=== PATIENT | male | born 1945 | race Caucasian/White ===

== ENCOUNTER → 2019-12-19 14:14 | Outpatient (BNVA) | payer MEDICARE, BC, SELFPAY | PROVIDERS: Family Provider Family Medicine; PCP Family Medicine; Visit Provider Family Medicine | DX: E03.9 Hypothyroidism, unspecified (principal); E78.5 Hyperlipidemia, unspecified; I10 Essential (primary) hypertension | CPT/HCPCS: 80053; 84443; 85025 ==

== ENCOUNTER 2020-01-10 14:25 | Outpatient (CLI) | payer MEDICARE, BC, SELFPAY ==
--- NOTE | 2020-01-10 14:37 | XR_ITS ---
WS: [id number] Chest: 2 view. HISTORY: Persistent cough. Shortness of breath. Inspiration and expiration radiographs are performed. No pneumothorax is identified. No pneumonia. Very minimal blunting of the costophrenic angles and ple ural thickening, similar to the prior study of 12/20/2014. No mediastinal widening. XR/XR chest 2V insp/exp [id number] IMPRESSION: 1. No pneumothorax. 2. Very minimal pleural thickening at the lung bases, similar to 12/20/2014.
== END 2020-01-10 14:26 | disposition home or self-care (01) ==
LOC: RAD 14:30
PROVIDERS: Family Provider Family Medicine; PCP Family Medicine; Visit Provider Internal Medicine Cardiovascular Disease
DX: R06.02 Shortness of breath (principal); R05 Cough
CPT/HCPCS: 71046

== ENCOUNTER → 2021-04-25 12:25 | Outpatient (BNVA) | payer MEDICARE, BC, SELFPAY | PROVIDERS: Family Provider Family Medicine; PCP Family Medicine; Visit Provider Family Medicine | DX: I10 Essential (primary) hypertension (principal); E03.9 Hypothyroidism, unspecified; E78.5 Hyperlipidemia, unspecified; R06.02 Shortness of breath; I25.10 Atherosclerotic heart disease of native coronary artery without angina pectoris; I51.7 Cardiomegaly | CPT/HCPCS: 71046; 80053; 80061; 85025 ==

== ENCOUNTER → 2021-07-01 11:48 | Outpatient (BNVA) | payer MEDICARE, BC, SELFPAY | PROVIDERS: Family Provider Family Medicine; PCP Family Medicine; Visit Provider Family Medicine | DX: E03.9 Hypothyroidism, unspecified (principal); I10 Essential (primary) hypertension; I25.2 Old myocardial infarction | CPT/HCPCS: 80053; 83880; 84443; 85025 ==

== ENCOUNTER → 2021-07-10 12:17 | Outpatient (BNVA) | payer MEDICARE, BC, SELFPAY | PROVIDERS: Family Provider Family Medicine; PCP Family Medicine; Visit Provider Family Medicine | DX: I50.31 Acute diastolic (congestive) heart failure (principal) | CPT/HCPCS: 80053 ==

== ENCOUNTER 2021-08-13 06:00 | Outpatient (CLI) | payer MEDICARE, BC, SELFPAY | END 2021-08-13 06:01 | disposition home or self-care (01) | LOC: LAB 01-01 06:39 | PROVIDERS: PCP Family Medicine; Visit Provider Family Medicine | DX: E03.9 Hypothyroidism, unspecified (principal); I25.2 Old myocardial infarction; I50.31 Acute diastolic (congestive) heart failure | CPT/HCPCS: 80048; 83880; 84443 ==

== ENCOUNTER → 2021-09-09 14:43 | Outpatient (BNVA) | payer MEDICARE, BC, SELFPAY | PROVIDERS: Family Provider Family Medicine; PCP Family Medicine; Visit Provider Family Medicine | DX: I50.31 Acute diastolic (congestive) heart failure (principal); R60.9 Edema, unspecified; N40.1 Benign prostatic hyperplasia with lower urinary tract symptoms; N41.1 Chronic prostatitis; N41.0 Acute prostatitis; N39.43 Post-void dribbling | CPT/HCPCS: 80048; 84443 ==

== ENCOUNTER → 2021-11-06 11:17 | Outpatient (BNVA) | payer MEDICARE, BC, SELFPAY | PROVIDERS: Family Provider Family Medicine; PCP Family Medicine; Visit Provider Family Medicine | DX: R60.9 Edema, unspecified (principal); E03.9 Hypothyroidism, unspecified; I50.31 Acute diastolic (congestive) heart failure | CPT/HCPCS: 80048; 84443; G0103 ==

== ENCOUNTER 2021-11-29 08:36 | Emergency (ER) | payer MEDICARE, BC, SELFPAY ==
--- NOTE | 2021-11-29 08:37 | CT_ITS ---
WS: [id number] CT HEAD NONCONTRAST HISTORY: POSSIBLE CVA TECHNIQUE: Contiguous axial imaging performed through the brain in 2.5 mm imaging. Bone and soft tiss ue windows. Sagittal and coronal reformats reviewed. All CT scans at [facility] use at least one of these dose optimization techniques: automated exposure control; mA and/or kV adjustment per pa tient size (includes targeted exams where dose is matched to clinical indication); or iterative recon struction. DLP: 1016.09 mGy-cm. COMPARISON: 09/15/2015 No acute intracranial hemorrhage, midline shift or mass effect. Mild atrophy with extensive small vessel ischemic changes and decreased attenuation in the white vijay er. Small lacunar infarct in the inferior LEFT basal ganglia. No acute loss of the an-white. Ventricles: Mild diffuse ventriculomegaly. Mild progression since 2016. No intraventricular blood. No inferior displacement of cerebellar tonsils. Paranasal sinuses: As visualized are clear. Mastoid air cells: Well pneumatized. Calvarium and scalp: Skull is intact with no soft tissue edema or swelling. CT/CT head wo con* [id number] IMPRESSION: 1. No acute intracranial hemorrhage or edema. 2. Mild ventriculomegaly with moderate diffuse small vessel ischemic disease w ithin the white matter. No acute infarct identified.
[2021-11-29 08:39] VITALS: BP 178/88; PULSE 110; RESP 16; TEMP 36.6; O2SAT 94; BMI 27.8
[2021-11-29 08:46] VITALS: BP 182/91; PULSE 85; RESP 16; O2SAT 97
[2021-11-29 09:00] VITALS: BP 172/84; PULSE 81; RESP 16; O2SAT 98
--- NOTE | 2021-11-29 09:16 | ECG_ITS ---
[facility] Test Date: 2021-11-29 Pat Name: Davy Reed Department: Room: Gender: Male Keg Raiser: : 1945 Requested By: Cassius Amaya Order Number: [id number] Piero MD: Lyle Valdes M.D. Measurements Intervals [place] Rate: 80 P: 30 SD: 168 QRS: 103 QRSD: 133 T: 28 QT: 416 QTc: 481 Interpretive Statements SINUS RHYTHM INDETERMINATE AXIS INTRAVENTRICULAR CONDUCTION DELAY [130+ ms QRS DURATION] POSSIBLE RIGHT VENTRICULAR HYPERTROPHY [SOME/ALL OF: PROMINENT R IN V1, LATE TRANSITION, RAD, JA, SSS] Diffuse nonspecific ST-T changes Compared to ECG 09/15/2015 12:08:49 Indeterminate axis now present Intraventricular conduction delay now present Left ventricular hypertrophy no longer present ST (T wave) deviation no longer present Myocardial infarct finding no longer present Electronically Signed On 11-29-2021 22:01:48 CDT by Lyle Valdes M.D. [id number]
--- NOTE | 2021-11-29 09:17 | ED_ITS ---
HPI - Weakness General: Chief complaint: Weakness Stated complaint: POSSIBLE CVA Time Seen by Provider: 11/29/21 09:04 Source: patient and family Mode of arrival: ambulatory Limitations: no limitations History of Present Illness: This patient was brought to the emergency department by his son because of concerned about right hand difficulties. He states that he noted him initially today approximately 3 AM when he got up and went to the bathroom. He felt like his right hand was clumsy and had less function than normal. He states that he had no other symptoms at that time. He went back to bed and then woke up approximately 7 AM and states the symptoms are still present he is made his way to the emergency department now. Approximately 5 and half?6 hours after onset of symptoms. He states his right hand seems to be improved but still not back to normal. He denies any other constitutional complaints at this time. His family report that he may have had a little bit of slurring his speech earlier today but does not at this time. He also has a history of CVA without deficits in the past. He has had a right carotid endarterectomy. He currently takes aspirin. No history of sleeping on his arm or injury to his arm that he is aware of. No neck pain. MD Complaint: focal weakness and numbness Onset (ago): hour(s) (6) Duration: improved Location: RUE Migration: none Associated symptoms: Reports no associated symptoms and easy bruising; Denies chest pain, chills, dysuria, fever(s), headache(s), nausea or vomiting Review of Systems Const: Denies: fever(s), chills or body aches Eyes: Denies: change in vision or blurry vision ENMT: Denies: throat pain or odynophagia Card: Reports: edema and swelling of feet/ankles; Denies: chest pain, palpitations or irregular heart rhythm Resp: Denies: dyspnea, productive cough or non-productive cough GI: Denies: abdominal pain, nausea, vomiting or hematemesis : Denies: flank pain, difficulty urinating or dysuria Musc: Denies: neck pain, back pain, extremity pain or extremity swelling Skin/Breast: Denies: rash, pruritus or erythema Neuro: Reports: numbness in extremities and weakness in extremities; Denies: headache(s), frequent falls or seizure-like activity Psych: Denies: anxiety or depression Endo: Denies: polyuria or polydipsia [place]/Lymph: Reports: easy bruising PFSH ED PFSH: Medical History Anxiety ASHD (arteriosclerotic heart disease) Carotid stenosis, bilateral Chronic shortness of breath Ed syndrome HTN (hypertension) Hyperlipidemia Hypothyroidism Ischemic cardiomyopathy Non-Hodgkin lymphoma Old inferior wall myocardial infarction Prostatitis, chronic Pulmonary embolism Seborrheic keratoses Syncope TIA (transient ischemic attack) Surgical History S/P carotid endarterectomy S/P PTCA (percutaneous transluminal coronary angioplasty) Family History Mother Cancer COLON Father CAD (coronary artery disease) Social History Smoking and tobacco status: never smoked Marital status: Single service: Yes branch: [employer] Physical Exam Narrative: EXAM NARRATIVE: Patient is alert and cooperative. Speech is goal-directed and fluent. Const: COMMON NORMALS: no acute distress, average body habitus and patient oriented x3 GENERAL APPEARANCE: cooperative and comfortable ORIENTATION/CONSCIOUSNESS: Yes awake, Yes oriented to person, Yes oriented to place and Yes oriented to time HENMT: COMMON NORMALS: normocephalic, atraumatic, Normal nasal mucous membranes and turbinates present and moist oral mucous membranes HEAD & SCALP: normocephalic and atraumatic; no scalp tenderness FACE & SINUS: Flattened naso-labial fold present (Very subtle) Right NOSE: Normal nasal mucous membranes and turbinates present Eye: COMMON NORMALS: Equal, round and reactive pupils present, EOMs intact bilaterally, conjunctivae normal and normal visual rodriguez by confrontation CONJUNCTIVA: Yes conjunctivae normal PUPIL: Yes Equal, round and reactive pu pils present Neck/C-Spine: COMMON NORMALS: full ROM, no lymphadenopathy, supple, no JVD and No carotid bruits (Healed surgical scar right neck) Chest: COMMONS NORMALS: normal inspection of the chest Resp: COMMON NORMALS: normal respiratory effort, No retractions, No use of accessory muscles and clear to auscultation bilaterally AUSCULTATION: clear to auscultation bilaterally Cardio: COMMON NORMALS: no JVD, regular rate, regular rhythm, No murmurs present (Cardio) and Peripheral pulses 2+ throughout RATE: regular rate RHYTHM: regular rhythm PERIPHERAL PULSES: Peripheral pulses 2+ throughout GI: COMMON NORMALS: Normal to inspection, nondistended, normoactive bowel sounds present, Soft to palpation and non-tender PALPATION: Yes Soft to palpation : COMMON NORMALS: Yes no CVA tenderness BLADDER/KIDNEY EXAM: Yes no CVA tenderness Back/Pelvis: COMMON NORMALS: no CVA tenderness, thoracic and lumbar spine normal to inspection, no thoracic nor lumbar tenderness, thoraco-lumbar ROM normal and straight leg raise negative bilaterally Extremity: COMMON NORMALS: normal to inspection, capillary refill normal and no joint enlargement NARRATIVE EXTREMITY EXAM: Bilateral pretibial edema. Neuro: COMMON NORMALS: patient oriented x3, moves all extremities and no sensory deficits noted SENSORIUM/ORIENTATION: Yes oriented to person, Yes oriented to place and Yes oriented to time MOTOR EXAM: Pronator motor function not present and no tremor noted OTHER: He has some weakness noted in the intrinsic muscles of the right hand with some difficulty with fine motor movement. No sensory loss is noted. Total NIH at this time is 1. Skin: COMMON NORMALS: turgor normal and no petechiae GENERAL SKIN EXAM: turgor normal OTHER: Multiple ecchymosis to forearms in various stages of healing. Course Reevaluation(s): Reevaluation #1: Noncontrast CT is negative for any hemorrhage or other concerning findings other than age-related changes at this time. Patient has an NIH of 1 and is now at 6 hours from his initial onset of symptoms and really meets no inclusion criteria for consideration for thrombolytic therapy. We will go ahead and proceed with aspirin. Could this be a peripheral neuropathy versus central etiology which is not clear at this point. Time: 09:44 Reevaluation #2: Patient subjectively states he feels better. He still has decreased fine motor function to his right hand without any new or other findings on repeat examination. Time: 13:28 Reevaluation #3: Patient remained stable. He is interactive with family. Vital signs are reassuring. No new or focal findings. He appears to have some increasing fine motor movement of his hand. Is still not back to baseline. Again it is unclear whether this is a peripheral neuropathy versus central however at this time he is stable and improving I think suitable to be discharged. I discussed with neurology who feels this is appropriate as well. His carotid artery Doppler show approximately 50% stenosis on his left carotid artery with what appears to be plaque may be perhaps some soft plaque. Right artery is postsurgical and not concerning at this time. We will go ahead and plan on sending home on a statin. We discussed dual platelet therapy but apparently has been having some issues with spontaneous bleeding so in the short-term will continue with aspirin and have his primary care follow-up regarding additional dual platelet therapy. I discussed this in detail with the patient and his family who voiced understanding and were appreciative of care. We will for discharge at this time. Consultations: Consultation #1: Discussed with Dr. John who very kind to take my call she recommended getting a carotid ultrasound and then considering Plavix and a statin if it was normal. Time: 14:05 Vital Signs: Vital signs: Vital Signs Temperature 97.8 F 11/29/21 08:39 Pulse Rate 79 11/29/21 10:00 Respiratory Rate 16 11/29/21 10:00 Blood Pressure 177/90 11/29/21 10:00 Pulse Oximetry 97 11/29/21 10:00 MDM - Weakness Medical Decision Making Patient who presented to our emergency department 6 hours after a small neurologic deficit which involves some fine motor function of the right hand. He was past 6-hour window for consideration for lytic therapy but also had an NIH of 1 which would also been mitigating against consideration for lytic therapy. His work-up here is reassuring and he has actually had some improvement in his symptoms. Question is whether this is peripheral versus central get CT scan is reassuring. Carotid ultrasounds were noted. We will go and place him on a statin as well as single platelet therapy (concern was of because of bleeding risk.). Stable for discharge with close follow-up and ret urn precautions. We also spent some time reviewing his need to take his other medications including his thyroid replacement which apparently he has been less than adherent to. Medical Records I reviewed the patient's medical records. Lab Data I reviewed the patient's lab results. : 11/29/21 08:00 11/29/21 08:[address] 11/29/21 08:37 IMPRESSION: 1. No acute intracranial hemorrhage or edema. 2. Mild ventriculomegaly with moderate diffuse small vessel ischemic disease within the white matter. No acute infarct identified. Laboratory Results WBC 4.5 10^3/uL (4.0-10.0) 11/29/21 08:00 RBC 5.03 10^6/uL (4.1-5.3) 11/29/21 08:00 Hgb 15.2 g/dL (11.7-16.6) 11/29/21 08:00 Hct 47.6 % (42.0-52.0) 11/29/21 08:00 MCV 94.6 fl (80-94) H 11/29/21 08:00 MCH 30.2 pg (28.0-34.0) 11/29/21 08:00 MCHC 31.9 g/dL (30.0-36.0) 11/29/21 08:00 RDW 16.9 % (12.1-15.1) H 11/29/21 08:00 Plt Count 203 10^3/cmm (130-400) 11/29/21 08:00 MPV 12.3 fL (7.4-10.4) H 11/29/21 08:00 Neut % (Auto) 70.1 % 11/29/21 08:00 Lymph % (Auto) 15.4 % 11/29/21 08:00 [place] % (Auto) 9.5 % 11/29/21 08:00 Eos % (Auto) 4.2 % 11/29/21 08:00 Baso % (Auto) 0.4 % 11/29/21 08:00 Neut # (Auto) 3.18 10^3/uL (1.8-7.7) 11/29/21 08:00 Lymph # (Auto) 0.7 10^3/uL (0.8-4.8) L 11/29/21 08:00 [place] # (Auto) 0.4 10^3/uL (0.2-0.9) 11/29/21 08:00 Eos # (Auto) 0.2 10^3/uL (0.0-0.8) 11/29/21 08:00 Baso # (Auto) 0.0 10^3/uL (0.0-0.1) 11/29/21 08:00 Nucleated RBC % (auto) 0 % 11/29/21 08:00 Nucleated RBCs # 0.0 /100WBC 11/29/21 08:00 PT 14.40 SECONDS (12.1-14.9) 11/29/21 08:00 INR 1.09 (0.8-1.2) 11/29/21 08:00 APTT 29.7 SECONDS (23.9-36.7) 11/29/21 08:00 Sodium 139 mmol/L (136-145) 11/29/21 08:00 Potassium 4.0 mmol/L (3.5-5.1) 11/29/21 08:00 Chloride 101 mmol/L (98-107) 11/29/21 08:00 Carbon Dioxide 28 mmol/L (22-29) 11/29/21 08:00 Anion Gap 14.0 (5-19) 11/29/21 08:00 BUN 15 mg/dL (8-23) 11/29/21 08:00 Creatinine 1.2 mg/dL (0.7-1.2) 11/29/21 08:00 GFR Calculation Not Reportable 11/29/21 08:00 Glucose 108 mg/dL (65-115) 11/29/21 08:00 Calculated Osmolality 289 mOsm/kg (285-295) 11/29/21 08:00 Calcium 8.9 mg/dL (8.5-10.5) 11/29/21 08:00 Total Bilirubin 1.2 mg/dL (0.15-1.2) 11/29/21 08:00 AST 36 U/L (0-40) 11/29/21 08:00 ALT 20 U/L (0-41) 11/29/21 08:00 Alkaline Phosphatase 175 IU/L (40-130) H 11/29/21 08:00 Total Protein 6.9 g/dL (6.6-8.7) 11/29/21 08:00 Albumin 4.1 g/dL (3.5-5.2) 11/29/21 08:00 Globulin 2.8 g/dL (1.3-4.6) 11/29/21 08:00 Urine Color Yellow (Yellow) 11/29/21 09:29 Urine Appearance Clear (CLEAR) 11/29/21 09: Urine pH 7 (5-7) 11/29/21 09:29 Ur Specific [place] 1.010 (1.005-1.030) 11/29/21 09:29 Urine Protein Trace (Negative) 11/29/21 09:29 Urine Glucose (UA) Norm (Normal) 11/29/21 09:29 Urine Ketones Negative (Negative) 11/29/21 09:29 Urine Blood Trace (Negative) H 11/29/21 09:29 Urine Nitrate Negative (Negative) 11/29/21 09:29 Urine Bilirubin 1+ (Negative) H 11/29/21 09:29 Urine Urobilinogen Norm mg/dL (Negative) 11/29/21 09:29 Ur Leukocyte Esterase Negative (Negative) 11/29/21 09:29 Urine RBC Rare /hpf (0-2) 11/29/21 09: Urine WBC Rare /hpf (0-5) 11/29/21 09:29 Ur Squamous Epith Cells None /hpf (0-5) 11/29/21 09:29 Amorphous Sediment Not Reportable 11/29/21 09:29 Urine Bacteria None /hpf (NONE) 11/29/21 09:29 EKG Data EKG 1: I personally reviewed and interpreted this EKG as follows: Interpretation: Review of EKG reveals ventricular rate of 80 bpm. Normal intervals. Normal axis. Consistent with sinus rhythm. Nonspecific ST-T wave changes noted in the precordial leads. No prior tracings available. Discharge Plan Discharge Patient Disposition: Home Clinical Impression: Right hand weakness, Atherosclerosis of left carotid artery Condition: Stable Prescriptions: New atorvastatin 20 mg tablet 20 mg PO DAILY Qty: 30 1RF No Action alprazolam 0.25 mg tablet 0.25 mg PO BID PRN (Reason: anxiety or sleep) Qty: 60 1RF losartan 50 mg tablet 50 mg PO DAILY Qty: 30 2RF tamsulosin 0.4 mg capsule 0.4 mg PO DAILY Qty: 30 2RF aspirin [Aspir-Low] 81 mg tablet,delayed release (DR/EC) 81 mg PO DAILY 0RF metoprolol tartrate 50 mg tablet 50 mg .ROUTE BID Qty: 180 2RF Rx Instructions: 50 mg twice a day; benzonatate 100 mg capsule 100 mg PO TID PRN (Reason: cough) Qty: 30 0RF Fluoroplex 1 % cream 1 applic topical BID 28 Days Qty: 30 1RF furosemide 40 mg tablet 40 mg PO BID 0RF Rx Instructions: 1 daily or as directed by Dr. Yang potassium chloride 20 mEq tablet extended release 20 meq PO DAILY Qty: 90 3RF Rx Instructions: take Potassium each time you take furosemide tablet. levothyroxine 175 mcg capsule 175 mcg PO DAILY Qty: 90 3RF Discharge Orders: Discharge ED (Routine); Ordered 11/29/21 Ordered By: Cassius Amaya Referrals: Manny Yang MD [Primary Care Provider] - Discharge Diet: Advance as tolerated Discharge Activity: Resume usual activity Patient Instructions: Opioid Safety Activity Restrictions/Additional Instructions: Continue all your usual medications. Please make sure you take them as prescribed. Take 81 mg of aspirin a day. Also take the new cholesterol- lowering agent. Call your doctor for follow-up appointment in 2 weeks. If you develop any new, persistent, worsening symptoms as we discussed return to this or the nearest emergency department immediately Coding Level of Care Code ED Operations Liaison for Jenifer Fwantony Exam Comprehensive
[2021-11-29 09:29] LABS: Basophils % 0.4 %; Eosinophils # 0.2 10^3/uL (0.0-0.8); Eosinophils % 4.2 %; Hematocrit 47.6 % (42.0-52.0); Hemoglobin 15.2 g/dL (11.7-16.6); Lymphocytes # 0.7 10^3/uL (0.8-4.8); Lymphocytes % 15.4 %; Mean Corpuscular HGB Conc 31.9 g/dL (30.0-36.0); Mean Corpuscular Hemoglobin 30.2 pg (28.0-34.0); Mean Corpuscular Volume 94.6 fl (80-94); Mean Platelet Volume 12.3 fL (7.4-10.4); Monocytes # 0.4 10^3/uL (0.2-0.9); Monocytes % 9.5 %; Neutrophils # 3.18 10^3/uL (1.8-7.7); Neutrophils % 70.1 %; Nucleated Red Blood Cells % 0 %; Platelet Count 203 10^3/cmm (130-400); Red Blood Count 5.03 10^6/uL (4.1-5.3); Red Cell Distribution Width 16.9 % (12.1-15.1); White Blood Count 4.5 10^3/uL (4.0-10.0)
[2021-11-29 09:30] VITALS: BP 173/80; PULSE 83; RESP 16; O2SAT 98
[2021-11-29 09:37] LABS: INR 1.09 (0.8-1.2)
[2021-11-29 09:38] LABS: Alanine Aminotransferase 20 U/L (0-41); Albumin Level 4.1 g/dL (3.5-5.2); Alkaline Phosphatase 175 IU/L (40-130); Aspartate Amino Transferase 36 U/L (0-40); Blood Urea Nitrogen 15 mg/dL (8-23); Calcium 8.9 mg/dL (8.5-10.5); Carbon Dioxide 28 mmol/L (22-29); Chloride 101 mmol/L (98-107); Globulin 2.8 g/dL (1.3-4.6); Glucose 108 mg/dL (65-115); Osmolality Calculated 289 mOsm/kg (285-295); Partial Thromboplastin Time 29.7 SECONDS (23.9-36.7); Sodium 139 mmol/L (136-145); Total Bilirubin 1.2 mg/dL (0.15-1.2); Total Protein 6.9 g/dL (6.6-8.7)
[2021-11-29 09:58] LABS: Add Urine Microscopic? YES; Bilirubin Urine 1+ (Negative); Blood Urine Trace (Negative); Glucose Urine UA Norm (Normal); Ketones Urine Negative (Negative); Leukocyte Esterase Urine Negative (Negative); Nitrate Urine Negative (Negative); Protein Urine Trace (Negative); RBC Urine RARE /hpf (0-2); Urine Appearance Clear (CLEAR); Urine Color Yellow (Yellow); Urobilinogen Urine Norm (Negative); WBC Urine RARE /hpf (0-5); pH Urine 7 (5-7)
[2021-11-29 10:00] VITALS: BP 177/90; PULSE 79; RESP 16; O2SAT 97
[2021-11-29] MEDS: aspirin 81 mg Chew Tablet 324 MG PO (10:00)
--- NOTE | 2021-11-29 10:17 | PC.NURSE ---
0930 NIH completed with score of 3. Patient has weakness in right side and mild slurred speech. Dysphagia screen completed and no residual effect noted. Awaiting disposition
--- NOTE | 2021-11-29 14:05 | USCV_ITS ---
Davy Reed Age: 76 Gender: M : 1945 Exam Date: 11/29/2021 14:44 Ordering Phys: Cassius Amaya DO Technologist: Blayne Hernandez Exam Location: [facility] Indication: hx rt side edart stroke symptoms on lt side Risk Factors: Previous Vascular Surgery: R CEA Right Brachial BP: / Left Brachial BP: / Right Left Velocity (cm/s) Spectral Plaque Velocity (cm/s) Spectral Plaque Syst/Diast Broadening Syst/Diast Broadening 161.80/20.50 Prox CCA 67.20 / 10.60 133.10/27.00 Mid CCA 63.40 / 10.60 110.00/22.00 Distal CCA 73.90 / 13.40 Homo 66.85/ 12.70 Prox ICA 65.00 / 8.40 Homo 62.70/ 13.60 Mid ICA 60.70 / 13.20 Homo 60.00/ 16.40 Distal ICA 45.40 / 7.90 59.90 ECA 113.30 0.44 ICA/CCA 0.88 Antegrade Vertebral Antegrade 52.00/ 10.00 cm/s 46.50/ 9.50 cm/s Bi Subclavian Bi 99.90 83.70 FINDINGS Comparison:. 09/22/18. Diffuse bilateral scattered calcified plaque and intimal thickening throughout the common carotid arteries and extending through the bifurcation. More focal intimal thickening and irregular plaque in the bifurcations. Antegrade vertebral arteries. CONCLUSIONS Bilateral ICA stenosis less than 50%. Diffuse heterogenous, irregular surface plaque. Most significant in the bifurcations. Dr. Samantha Vera DO (Electronically Signed) Final Date: 29 Nov 2021 15:55 S
== END 2021-11-29 15:47 | disposition home or self-care (01) ==
PROVIDERS: Emergency Provider Emergency Medicine; PCP Family Medicine
DX: I65.22 Occlusion and stenosis of left carotid artery (principal); R53.1 Weakness; I10 Essential (primary) hypertension; I25.10 Atherosclerotic heart disease of native coronary artery without angina pectoris; Z86.73 Personal history of transient ischemic attack (TIA), and cerebral infarction without residual deficits; Z79.82 Long term (current) use of aspirin
CPT/HCPCS: 70450; 80053; 81001; 85025; 85610; 85730; 93005; 93880; 99285

== ENCOUNTER → 2022-07-28 16:08 | Outpatient (BNVA) | payer MEDICARE, BC, SELFPAY | PROVIDERS: PCP Family Medicine; Visit Provider Family Medicine | DX: E03.9 Hypothyroidism, unspecified (principal); L98.9 Disorder of the skin and subcutaneous tissue, unspecified; C44.310 Basal cell carcinoma of skin of unspecified parts of face; I10 Essential (primary) hypertension; Z86.73 Personal history of transient ischemic attack (TIA), and cerebral infarction without residual deficits | CPT/HCPCS: 80053; 84443; 85025; 88304 ==

== ENCOUNTER 2023-08-23 17:51 | Inpatient (IN) | payer MEDICARE, BC, SELFPAY ==
[2023-08-23] VITALS (17 sets, daily range): BP systolic 149–194; BP diastolic 66–108; PULSE 70–107; RESP 10–28; TEMP 35.8–37.2; O2SAT 92–100; BMI 37.5
--- NOTE | 2023-08-23 18:05 | CTR_ITS ---
PROCEDURE INFORMATION: Exam: CT Head Without Contrast Exam date and time: 08/23/2023 6:23 PM Age: 78 years old Clinical indication: Injury or trauma; Fall; AMS. TECHNIQUE: Imaging protocol: Computed tomography of the head without contrast. Radiation optimization: All CT scans at this facility use at least one of these dose optimization techniques: automated exposure control; mA and/or kV adjustment per patient size (includes targeted exams where dose is matched to clinical indication); or iterative reconstruction. COMPARISON: CT head wo con* [id number] 11/29/2021 8:32 AM RADIATION DOSE METRICS: Total DLP (mGy-cm): 1291.64 FINDINGS: Brain: Moderate chronic microvascular cerebral parenchymal change and parenchymal volume loss with ex vacuo dilatation of the ventricular system, unchanged from 11/29/2021. Cerebral ventricles: See Brain finding. Paranasal sinuses: Visualized sinuses are unremarkable. No fluid levels. Mastoid air cells: Visualized mastoid air cells are well aerated. Bones/joints: Bursal thickening in the ethmoid air cells. Soft tissues: Unremarkable. CT/CT head wo con* [id number] IMPRESSION: 1. No acute intracranial or calvarial abnormality. No change in the intracranial contents from 11/29/2021. 2. Moderate chronic microvascular cerebral parenchymal change and cerebral volume atrophy.
--- NOTE | 2023-08-23 18:05 | CTR_ITS ---
PROCEDURE INFORMATION: Exam: CT Cervical Spine Without Contrast Exam date and time: 08/23/2023 6:26 PM Age: 78 years old Clinical indication: Injury or trauma; Fall; Blunt trauma; Additional info: Trauma/fall TECHNIQUE: Imaging protocol: Computed tomography of the cervical spine without contrast. Radiation optimization: All CT scans at this facility use at least one of these dose optimization techniques: automated exposure control; mA and/or kV adjustment per patient size (includes targeted exams where dose is matched to clinical indication); or iterative reconstruction. COMPARISON: CT angio neck [id number] 10/07/2018 10:47 AM RADIATION DOSE METRICS: Total DLP (mGy-cm): 591.97 FINDINGS: Bones/joints: Moderate multilevel uncovertebral and endplate spurring and mild facet arthropathy. Mild foraminal stenosis at C3-C4 and C4-C5, left greater than right. Moderate to severe foraminal stenosis at C5-C6, left greater than right. Moderate C6-C7 foraminal stenosis, left greater than right. Moderate posterior height loss of the C6-C7 and to a lesser extent C5-C6 disc spaces and [id number] disc osteophyte complex formation at those levels with mild to moderate canal stenosis especially at C5-C6. Moderate disc bulge at C3-C4 has increased from 2019 with moderate canal stenosis and mild contour indentation of the cord. Lungs: Lung apices are normal. Pleural spaces: [id number] biapical pleural-parenchymal scarring is unchanged from 10/07/2018. Vasculature: Moderate atherosclerotic calcification of the bilateral carotid bifurcations, Surgical clips in the right side of the neck suggestive of prior endarterectomy again demonstrated Soft tissues: No additional abnormality. CT/CT cervical spin wo con* [id number] IMPRESSION: 1. No acute fracture or traumatic malalignment. 2. Moderate annular disc bulge increased at C3-C4 since 10/07/2018 study. Moderate canal stenosis , cord contour flattening and indentation. Clinical correlation for any neurologic symptomatology and further evaluation with MR as clinically warranted.
--- NOTE | 2023-08-23 18:05 | XRR_ITS ---
PROCEDURE INFORMATION: Exam: XR Chest Exam date and time: 08/23/2023 6:26 PM Age: 78 years old Clinical indication: Injury or trauma; Blunt trauma (contusions or hematomas); Patient HX: EMS arrival for fall with AMS; Additional info: Weakness TECHNIQUE: Imaging protocol: Radiologic exam of the chest. Views: 1 view. COMPARISON: CR XR chest 2V* [id number] 04/25/2021 12:29 PM FINDINGS: Lungs: Unremarkable. No consolidation. Pleural spaces: Small left-sided pleural effusion. No pneumothorax. Heart/Mediastinum: Heart is enlarged. Bones/joints: Unremarkable. XR/XR chest 1V portable [id number] IMPRESSION: 1. Small left-sided pleural effusion. 2. No pneumothorax.
--- NOTE | 2023-08-23 18:07 | ED_ITS ---
HPI - General Adult 2 General: Chief complaint: Altered Mental Status Stated complaint: AMS Time Seen by Provider: 08/23/23 17:55 History of Present Illness: 78-year-old male presents to the emergen cy department via EMS personnel. Patient is awake alert and oriented following commands appropriately he states that he is here in the ER because his son called the ambulance because he fell yesterday, has leg swelling and increased shortness of breath when walking short distances. He has an unknown last known well time although he is able to answer all questions appropriately patient does have decreased weakness in his left hand on the fifth fourth and third digit. He has no motor drift. His NIH is 0, his GCS is 15, he is alert and oriented x 4 person, place time and situation. He denies chest pain, dizziness or lightheaded feeling. Associated symptoms: Reports malaise; Deny chest pain or dyspnea Review of Systems 2 General: Reports: 10 or more systems reviewed and unremarkable except in HPI and below Const: Reports: fatigue and malaise Card: Reports: edema and swelling of feet/ankles; Denies: chest pain or lightheadedness Resp: Denies: dyspnea PFSH ED 2 PFSH: Medical History (Updated 08/24/23 @ 19:59 by Krystian Villagomez MD) Noncompliance Basal cell carcinoma, face GERD (gastroesophageal reflux disease) Seborrheic keratoses Prostatitis, chronic Anxiety Chronic shortness of breath Pulmonary embolism Syncope Old inferior wall myocardial infarction Non-Hodgkin lymphoma Hypothyroidism ASHD (arteriosclerotic heart disease) Carotid stenosis, bilateral Ed syndrome Hyperlipidemia HTN (hypertension) Ischemic cardiomyopathy TIA (transient ischemic attack) Surgical History S/P carotid endarterectomy S/P PTCA (percutaneous transluminal coronary angioplasty) Family History Mother Cancer COLON Father CAD (coronary artery disease) Social History Smoking and tobacco/nicotine status: never used tobacco/nicotine Marital status: Single service: Yes branch: [employer] Physical Exam 2 Narrative: EXAM NARRATIVE: Constitutional: the patient appears well nourished and with normal development. Vital signs reviewed as documented. GCS 15 HENMT: Normocephalic, atraumatic. External ears normal appearance without drainage. Nose without drainage, normal appearance. Mucus membranes moist. Neck is supple, No jugular venous distension, trachea is midline, no appreciable carotid bruits. No lymphadenopathy. No meningeal signs. Flexion, extension and lateral rotation is without pain. Eyes: Pupils are equal, round, reactive to light and accommodation. No scleral icterus. Extra-ocular movement are intact. Thorax is symmetrical and with equal rise and fall with respirations. Resp: Lungs are clear to auscultation. No wheezes, rales, crackles or ronchi at present. Cardio: Sinus rhythm with first-degree AV block and right bundle branch block, with occasional unifocal PVC. positive S1, S2. No appreciable murmurs, rubs or gallops. GI: Abdominal exam reveals normal bowel sounds to all quadrants. No organomegaly. No obvious palpable masses noted. No hepatomegally appreciated. Soft, non-tender to palpation. Extremity: Extremities are non-edematous and both femoral and pedal pulses are 2+ and equal bilaterally. Moves all extremities well, sensation in all extremities. Right third fourth and fifth digit appear to be slightly weaker regarding musculoskeletal strength. Patient states that his hand has been like that for a very long time. Neuro: Alert and oriented x4, person, place, time and situation. Cranial nerves II through XII are grossly intact, there is no focal neurological deficits that I can appreciate at present. Motor strength in the upper and lower extremities are equal and bilateral 5/5. Psych: Cooperative, calm, normal thought process, appropriate judgment. Skin: No lesions, rashes. No gross abnormalities noted senile purpura noted to the bilateral forearm. Back: Symmetrical, no obvious deformity, No CVA tenderness Course 2 Vital Signs: Vital signs: Vital Signs Temperature 98.3 F 08/24/23 19:11 Pulse Rate 58 L 08/24/23 19:11 Respiratory Rate 14 08/24/23 19:11 Blood Pressure 123/67 08/24/23 19:11 Pulse Oximetry 95 08/24/23 19:11 Oxygen Delivery Me thod Room Air 08/24/23 19:11 Oxygen Flow Rate 2 08/24/23 08:19 MDM - General Adult Medical Decision Making Physical exam completed and documented, CBC, CMP, twelve-lead EKG cardiac enzymes, UA and CPK to evaluate for rhabdomyolysis. I will obtain POC glucose check and treat accordingly. I will obtain a chest x-ray and if indicated a CT scan of the head without contrast to evaluate for intracranial hemorrhage and if indicated a CTA scan of the head and neck for evaluation of acute ischemic vessel occlusion. I have reviewed previous and pertinent medical records for assist in obtaining benefical medical information to improved the care and treatment of the patient. Differential Diagnosis CVA, electrolyte abnormality, UTI, pneumonia, viral illness, Medical Records I reviewed the patient's medical records. Lab Data I reviewed the patient's lab results. 08/24/23 02:59 08/24/23 02:59 Radiology Impressions Cervical Spine CT 08/23/23 18:05 IMPRESSION: 1. No acute fracture or traumatic malalignment. 2. Moderate annular disc bulge increased at C3-C4 since 10/07/2018 study. Moderate canal stenosis , cord contour flattening and indentation. Clinical correlation for any neurologic symptomatology and further evaluation with MR as clinically warranted. Chest X-Ray 08/23/23 18:05 IMPRESSION: 1. Small left-sided pleural effusion. 2. No pneumothorax. Head CT 08/23/23 18:05 IMPRESSION: 1. No acute intracranial or calvarial abnormality. No change in the intracranial contents from 11/29/2021. 2. Moderate chronic microvascular cerebral parenchymal change and cerebral volume atrophy. Laboratory Results WBC 8.23 10^3/uL (3.29-11.43) 08/23/23 18:15 RBC 4.99 10^6/uL (3.85-5.65) 08/23/23 18:15 Hgb 15.80 g/dL (11.27-16.99) 08/23/23 18:15 Hct 48.5 % (37-53) 08/23/23 18:15 MCV 97.2 fl (82-101) 08/23/23 18:15 MCH 31.7 pg (27-33) 08/23/23 18:15 MCHC 32.6 g/dL (30-55) 08/23/23 18:15 RDW 14.3 % (12.1-15.1) 08/23/23 18:15 Plt Count 115 10^3/cmm (157-399) L 08/23/23 18:15 MPV 12.1 fL (7.4-10.4) H 08/23/23 18:15 Neut % (Auto) 90.8 % 08/23/23 18:15 Lymph % (Auto) 3.9 % 08/23/23 18:15 [place] % (Auto) 4.7 % 08/23/23 18:15 Eos % (Auto) 0.0 % 08/23/23 18:15 Baso % (Auto) 0.1 % 08/23/23 18:15 Neut # (Auto) 7.47 10^3/uL (1.8-7.7) 08/23/23 18:15 Lymph # (Auto) 0.3 10^3/uL (0.8-4.8) L 08/23/23 18:15 [place] # (Auto) 0.4 10^3/uL (0.2-0.9) 08/23/23 18:15 Eos # (Auto) 0.0 10^3/uL (0.0-0.8) 08/23/23 18:15 Baso # (Auto) 0.0 10^3/uL (0.0-0.1) 08/23/23 18:15 Nucleated RBC % (auto) 0 % 08/23/23 18:15 Nucleated RBCs # 0.0 /100WBC 08/23/23 18:15 PT 14.00 SECONDS (12.1-14.9) 08/23/23 18:15 INR 1.05 (0.8-1.2) 08/23/23 18:15 Sodium 136 mmol/L (136-145) 08/23/23 18:15 Potassium 4.9 mmol/L (3.5-5.1) 08/23/23 18:15 Chloride 99 mmol/L (98-107) 08/23/23 18:15 Carbon Dioxide 31 mmol/L (22-29) H 08/23/23 18:15 Anion Gap 10.9 (5-19) 08/23/23 18:15 BUN 18 mg/dL (8-23) 08/23/23 18:15 Creatinine 1.1 mg/dL (0.7-1.2) 08/23/23 18:15 GFR Calculation Not Reportable 08/23/23 18:15 Glucose 117 mg/dL (65-115) H 08/23/23 18:15 Calculated Osmolality 285 mOsm/kg (285-295) 08/23/23 18:15 Lactic Acid 1.8 mmol/L (0.5-2.2) 08/23/23 18:15 Calcium 8.7 mg/dL (8.5-10.5) 08/23/23 18:15 Total Bilirubin 1.4 mg/dL (0.15-1.2) H 08/23/23 18:15 AST 30 U/L (0-40) 08/23/23 18:15 ALT 19 U/L (0-41) 08/23/23 18:15 Alkaline Phosphatase 90 U/L (40-130) 08/23/23 18:15 Creatine Kinase 180 U/L (39-308) 08/23/23 18:15 Troponin T Baseline 69 ng/L (0-15) H 08/23/23 18:15 NT-Pro-B Natriuret Pep 44705 pg/mL (0-450) H 08/23/23 18:15 Total Protein 6.5 g/dL (6.6-8.7) L 08/23/23 18:15 Albumin 4.1 g/dL (3.5-5.2) 08/23/23 18:15 Globulin 2.4 g/dL (1.3-4.6) 08/23/23 18:15 Procalcitonin 0.07 ng/mL (0-0.5) 08/23/23 18:15 Urine Color Isabell (Yellow) 08/23/23 20:15 Urine Appearance Sl hazy (CLEAR) A 08/23/23 20:15 Urine pH 6.5 (5-7) 08/23/23 20:15 Ur Specific [place] 1.020 (1.005-1.030) 08/23/23 20:15 Urine Protein 2+ (Negative) H 08/23/23 20:15 Urine Glucose (UA) Norm (Normal) 08/23/23 20:15 Urine Ketones 1+ (Negative) H 08/23/23 20:15 Urine Blood Trace (Negative) H 08/23/23 20:15 Urine Nitrate Negative (Negative) 08/23/23 20:15 Urine Bilirubin 1+ (Negative) H 08/23/23 20:15 Urine Urobilinogen 1 mg/dL (Negative) H 08/23/23 20:15 Ur Leukocyte Esterase Trace (Negative) H 08/23/23 20:15 Urine RBC 0-4 /hpf (0-2) H 08/23/23 20:15 Urine WBC 0-4 /hpf (0-5) H 08/23/23 20:15 Ur Squamous Epith Cells 0-4 /hpf (0-5) H 08/23/23 20:15 Amorphous Sediment Not Reportable 08/23/23 20:15 Urine Bacteria Trace /hpf (NONE) 08/23/23 20:15 Urine Mucus 2+ /hpf 08/23/23 20:15 All radiology interpretation(s) finalized by discharge EKG Data EKG 1: Interpretation: Twelve-lead EKG obtained at 1759 and reviewed at 1759 demonstrates underlying sinus rhythm with a first-degree AV block and right heart block. Trickle rate 75 bpm, VT interval 234, QRS duration 181, QT 449, QTc [address] elevation or depression at present to demonstrate acute ischemia or infarction. Patient is having intermittent unifocal PVCs. Computer generated interpretation: Cervical Spine CT 08/23/23 18:05 IMPRESSION: 1. No acute fracture or traumatic malalignment. 2. Moderate annular disc bulge increased at C3-C4 since 10/07/2018 study. Moderate canal stenosis , cord contour flattening and indentation. Clinical correlation for any neurologic symptomatology and further evaluation with MR as clinically warranted. Chest X-Ray 08/23/23 18:05 IMPRESSION: 1. Small left-sided pleural effusion. 2. No pneumothorax. Head CT 08/23/23 18:05 IMPRESSION: 1. No acute intracranial or calvarial abnormality. No change in the intracranial contents from 11/29/2021. 2. Moderate chronic microvascular cerebral parenchymal change and cerebral volume atrophy. Discharge Plan Discharge Patient Disposition: Admitted As Inpatient Admit Provider: Osman Hewitt Clinical Impression: Acute exacerbation of CHF (congestive heart failure), Weakness Condition: Stable Coding Level of Care Code ED Olive Knocker for Jenifer Garcia
[2023-08-23 18:25] LABS: Basophils % 0.1 %; Hematocrit 48.5 % (37-53); Lymphocytes # 0.3 10^3/uL (0.8-4.8); Lymphocytes % 3.9 %; Mean Corpuscular HGB Conc 32.6 g/dL (30-55); Mean Corpuscular Hemoglobin 31.7 pg (27-33); Mean Corpuscular Volume 97.2 fl (82-101); Mean Platelet Volume 12.1 fL (7.4-10.4); Monocytes # 0.4 10^3/uL (0.2-0.9); Monocytes % 4.7 %; Neutrophils # 7.47 10^3/uL (1.8-7.7); Neutrophils % 90.8 %; Nucleated Red Blood Cells % 0 %; Platelet Count 115 10^3/cmm (157-399); Red Blood Count 4.99 10^6/uL (3.85-5.65); Red Cell Distribution Width 14.3 % (12.1-15.1); White Blood Count 8.23 10^3/uL (3.29-11.43)
[2023-08-23 18:42] LABS: Alanine Aminotransferase 19 U/L (0-41); Albumin Level 4.1 g/dL (3.5-5.2); Alkaline Phosphatase 90 U/L (40-130); Anion Gap 10.9 (5-19); Aspartate Amino Transferase 30 U/L (0-40); Blood Urea Nitrogen 18 mg/dL (8-23); Calcium 8.7 mg/dL (8.5-10.5); Carbon Dioxide 31 mmol/L (22-29); Chloride 99 mmol/L (98-107); Creatine Phosphokinase 180 U/L (39-308); Globulin 2.4 g/dL (1.3-4.6); Glucose 117 mg/dL (65-115); Osmolality Calculated 285 mOsm/kg (285-295); Potassium 4.9 mmol/L (3.5-5.1); Sodium 136 mmol/L (136-145); Total Bilirubin 1.4 mg/dL (0.15-1.2); Total Protein 6.5 g/dL (6.6-8.7)
[2023-08-23 18:43] LABS: Lactic Sepsis W/Reflex 1.8 mmol/L (0.5-2.2)
[2023-08-23 18:44] LABS: INR 1.05 (0.8-1.2)
[2023-08-23 20:06] LABS: NT Pro B Type Natriuretic Pept 11875 pg/mL (0-450); Procalcitonin 0.07 ng/mL (0-0.5)
--- NOTE | 2023-08-23 20:12 | ECG_ITS ---
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 Measurements Intervals [place] Rate: 75 P: 28 MD: 205 QRS: 149 QRSD: 177 T: 7 QT: 462 QTc: 517 Interpretive Statements SINUS RHYTHM WITH FREQUENT VENTRICULAR PREMATURE COMPLEXES INDETERMINATE AXIS RIGHT BUNDLE BRANCH BLOCK [120+ ms QRS DURATION, UPRIGHT V1, 40+ ms S IN I/aVL/V4/V5/V6] ST DEPRESSION, CONSIDER SUBENDOCARDIAL INJURY [0.1+ mV ST DEPRESSION] Compared to ECG 11/29/2021 09:24:10 Ventricular premature complex(es) now present Right bundle-branch block now present Intraventricular conduction delay no longer present Atrial abnormality no longer present ST (T wave) deviation still present Electronically Signed On 08-23-2023 23:05:20 OUTER DIAMETER GRINDER by Stan Johnson M.D. [id number]
[2023-08-23 20:43] LABS: Add Urine Microscopic? YES; Urine Appearance SL Hazy (CLEAR); Urine Color Amber (Yellow); pH Urine 6.5 (5-7)
[2023-08-23 20:44] LABS: Bacteria Urine TRACE /hpf; Bilirubin Urine 1+ (Negative); Blood Urine Trace (Negative); Glucose Urine UA Norm (Normal); Ketones Urine 1+ (Negative); Leukocyte Esterase Urine Trace (Negative); Mucus Urine 2+ /hpf; Nitrate Urine Negative (Negative); Protein Urine 2+ (Negative); RBC Urine 0-4 /hpf (0-2); Squamous Epithelial Cell Urine 0-4 /hpf (0-5); Urobilinogen Urine 1 mg/dL (Negative); WBC Urine 0-4 /hpf (0-5)
[2023-08-23 20:47] LABS: Troponin(5th) Baseline 69 ng/L (0-15)
[2023-08-23 21:14] LABS: Troponin 5 2HR 73.82 ng/L (0-15); Troponin 5 2HR Delta 4.82 ABS# (0-10)
--- NOTE | 2023-08-23 21:21 | P.HP_ITS ---
Providers/Chief Complaint 2 Admitting Physician: Osman Hewitt Primary Care Provider: Manny Yang MD Chief Complaint: AMS History of Present Illness 78-year-old gentleman with history of CAD, stenting, ischemic cardiomyopathy, HLD, hypothyroidism, PE, other conditions, lives home alone, has been having progressive weakness, also suffered a fall, more dyspnea on exertion, as well as lower extremity edema. He states that he is keeping up with his medications, but his sons do not corroborate this. He denies chest pain or pressure. Denies fever, chills, cough or other symptoms of viral illness. In ER he is on 2 L nasal cannula oxygen, whereas normally he is not on any oxygen. NT-proBNP is 11,875. Cardiomegaly on chest x-ray. Review of Systems 2 Const: Denies: fever(s), chills, body aches or malaise ENMT: Denies: throat pain Card: Reports: edema and dyspnea on exertion; Denies: chest pain, pre-syncope or orthopnea Resp: Denies: dyspnea, productive cough, non-productive cough, change in phlegm color or hemoptysis GI: Denies: abdominal pain, nausea, vomiting, diarrhea, constipation, hematochezia or melena : Denies: flank pain, difficulty urinating, urinary frequency or hematuria Musc: Denies: back pain, joint swelling or joint redness Skin/Breast: Denies: rash or new lesions Neuro: Denies: headache(s), numbness in extremities, weakness in extremities, dizziness, confusion or seizure-like activity Medications/Allergies Home Medications Medication Instructions Recorded Confirmed Last Taken Type aspirin 81 mg tablet,delayed 81 mg PO DAILY 09/23/19 08/11/22 Unknown History release (Aspir-Low) metoprolol tartrate 50 mg tablet 50 mg .Route BID #180 tabs 04/25/21 08/11/22 Unknown Rx alprazolam 0.25 mg tablet 0.25 mg PO BID PRN anxiety or 07/01/21 08/11/22 Unknown Rx sleep #60 tabs potassium chloride 20 mEq 20 meq PO DAILY #90 tabs 07/11/21 08/11/22 Unknown Rx tablet,extended release tamsulosin 0.4 mg capsule 0.4 mg PO DAILY better urine flow 09/09/21 08/11/22 Unknown Rx past prostate #30 caps benzonatate 100 mg capsule 100 mg PO TID PRN cough #30 caps 09/24/21 08/11/22 Unknown Rx fluorouracil 1 % topical cream 1 applic topical BID spots on 09/24/21 08/11/22 Unknown Rx (Fluoroplex) forehead 4 weeks #30 grams furosemide 40 mg tablet 40 mg PO BID 11/27/21 08/11/22 Unknown History atorvastatin 20 mg tablet 20 mg PO DAILY #30 tabs 11/29/21 08/11/22 Unknown Rx levothyroxine 175 mcg capsule 175 mcg PO DAILY #90 caps 08/11/22 08/11/22 Unknown Rx losartan 50 mg tablet 50 mg PO DAILY #90 tabs 08/11/22 08/11/22 Unknown Rx Allergies Allergy/AdvReac Type Severity Reaction Status Date / Time No Known Allergies Allergy Verified 08/11/22 12:43 PFSH Acute 2 PFSH: Medical History (Updated 08/23/23 @ 21:43 by Osman Hewitt MD) GERD (gastroesophageal reflux disease) Seborrheic keratoses Prostatitis, chronic Anxiety Chronic shortness of breath Pulmonary embolism Syncope Old inferior wall myocardial infarction Non-Hodgkin lymphoma Hypothyroidism ASHD (arteriosclerotic heart disease) Carotid stenosis, bilateral Ed syndrome Hyperlipidemia HTN (hypertension) Ischemic cardiomyopathy TIA (transient ischemic attack) Surgical History S/P carotid endarterectomy S/P PTCA (percutaneous transluminal coronary angioplasty) Family History Mother Cancer COLON Father CAD (coronary artery disease) Social History Smoking and tobacco/nicotine status: never used tobacco/nicotine Marital status: Single service: Yes branch: [employer] Vitals/I&O/Wt Last Vital Signs Temp 96.5 F L 08/23/23 17:59 Pulse 77 08/23/23 20:30 Resp 17 08/23/23 20:30 BP 174/71 08/23/23 20:30 Pulse Ox 100 08/23/23 20:30 O2 Del Method Nasal Cannula 08/23/23 20:00 O2 Flow Rate 2 08/23/23 20:00 Physical Exam 2 Narrative: Accompanied by his sons at bedside. Const: COMMON NORMALS: patient oriented x3 and alert GENERAL APPEARANCE: c ooperative and frail appearing ORIENTATION/CONSCIOUSNESS: Yes awake HENMT: COMMON NORMALS: oropharynx normal Resp: AUSCULTATION: diminished lung sounds on the right in the lower lung rodriguez Cardio: COMMON NORMALS: no JVD, regular rhythm, S1 normal heart sound present, S2 normal heart sound present and No murmurs present (Cardio) RHYTHM: regular rhythm HEART SOUNDS: S1 normal heart sound present and S2 normal heart sound present GI: COMMON NORMALS: Normal to inspection, nondistended, normoactive bowel sounds present, Soft to palpation and non-tender PALPATION: Yes Soft to palpation Extremity: COMMON NORMALS: no joint enlargement GENERAL: Yes edema (2+) Neuro: COMMON NORMALS: patient oriented x3 and moves all extremities S ENSORIUM/ORIENTATION: Yes alert Skin: COMMON NORMALS: no rashes or lesions noted GENERAL SKIN EXAM: no rashes or lesions noted Data 08/23/23 18:15 08/23/23 18:15 A&P Assessment and plan (1) CHF exacerbation: CHF exacerbation, type unknown. History of ischemic cardiomyopathy, CAD. Has been getting progressively generally weak, dyspnea on exertion, in ER on 2 L nasal cannula oxygen, not normally oxygen before that. He states that he takes all his medications, but his sons do not corroborate that, stating he does not. Received a dose of Lasix in ER 60 mg. Will additionally assess with TTE to get a better idea of cardiac function, valves. Continue for now with IV Lasix 40 mg daily, reassess volume status, at risk of ELIZA, electrolyte abnormality, reassess chemistry. Adjust diuretic intensity depending on response and findings. Monitor on telemetry with risk of arrhythmia. Reviewed vitals, CBC, INR, CMP, troponin series, procalcitonin, UA, head CT, chest x-ray, C-spine CT. EKG with noted ST depression in V2, laterally. Denies chest pain or pressure. Moderate troponin elevation noted. History of CAD. Seems not adherent with his medications, possibility of progression of CAD, possible trigger for CHF. May need additional risk stratification. (2) Generalized weakness: Secondary to decompensated congestive heart failure as above. No suggestion of infectious disease at this time on review of symptoms, physical exam, vitals, CBC, CMP, urine, chest x-ray. Reviewed ER note, discussed with ER physician. He had a fall at home. C-spine CT and head CT were obtained. C-spine CT with moderate annular disc bulge at C3-4 since 10/07/2018. Moderate canal stenosis. Cord contour flattening and indentation, consider MRI. Will obtain PT assessment. Case management consultation. He would be okay going to SNF if this was needed. Check TSH. Plan CAD: Continue aspirin, statin, and beta-jen. HTN: Monitor blood pressures, continue metoprolol. Requesting for medications to be confirmed. Previously was also on losartan. HLD: Continue statin. Carotid disease: Continue aspirin, statin. Optimize cardiovascular risk. History of PE GERD Hypothyroidism: Requesting to confirm dose of levothyroxine. Check TSH. Other medical problems Requesting for medications to be confirmed. Please review and reconcile once available. Attestations 2 Medical Necessity Statement*: Admission of over 2 midnights anticipated for assessment and management of decompensated CHF, generalized weakness, fall in an elderly gentleman with underlying CAD and additional comorbidities as above. and High MDM includes amount and/or complexity of data reviewed/ordered [ previous or external records, resulted lab(s)/test(s), ordered lab(s)/test(s), independent historian and other healthcare professional discussion] and described risk of complication, morbidity or mortality of management as documented Diagnoses CHF exacerbation I50.9 Generalized weakness R53.1
[2023-08-23] MEDS: FUROsemide 10 mg/mL SDV 10mL 60 MG IVP (21:28)
--- NOTE | 2023-08-23 22:18 | ECG_ITS ---
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 Measurements Intervals [place] Rate: 79 P: 35 KS: 205 QRS: 185 QRSD: 183 T: 13 QT: 452 QTc: 519 Interpretive Statements SINUS RHYTHM WITH FREQUENT VENTRICULAR PREMATURE COMPLEXES LEFT ATRIAL ENLARGEMENT [-0.15mV P-WAVE IN V1/V2] INDETERMINATE AXIS RIGHT BUNDLE BRANCH BLOCK [120+ ms QRS DURATION, UPRIGHT V1, 40+ ms S IN I/aVL/V4/V5/V6] ST DEPRESSION, CONSIDER SUBENDOCARDIAL INJURY [0.1+ mV ST DEPRESSION] Compared to ECG 08/23/2023 20:12:09 Atrial abnormality now present ST (T wave) deviation still present Electronically Signed On 08-23-2023 23:05:56 BANDING MACHINE OPERATOR by Stan Johnson M.D. [id number]
[2023-08-24] VITALS (9 sets, daily range): BP systolic 109–184; BP diastolic 51–103; PULSE 57–83; RESP 13–21; TEMP 36.8–37.3; O2SAT 91–100
--- NOTE | 2023-08-24 02:14 | ECG_ITS ---
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 Measurements Intervals [place] Rate: 76 P: 14 DE: 219 QRS: -82 QRSD: 177 T: 5 QT: 438 QTc: 494 Interpretive Statements SINUS RHYTHM WITH FIRST DEGREE AV BLOCK WITH FREQUENT VENTRICULAR PREMATURE COMPLEXES POSSIBLE LEFT ATRIAL ENLARGEMENT [-0.1mV P-WAVE IN V1/V2] INDETERMINATE AXIS RIGHT BUNDLE BRANCH BLOCK [120+ ms QRS DURATION, UPRIGHT V1, 40+ ms S IN I/aVL/V4/V5/V6] ST DEPRESSION, CONSIDER SUBENDOCARDIAL INJURY [0.1+ mV ST DEPRESSION] Compared to ECG 08/23/2023 22:18:04 First degree AV block now present ST (T wave) deviation still present Electronically Signed On 08-24-2023 9:50:23 SCIENTIST ELECTRONICS by Man Conde M.D. [id number]
[2023-08-24 04:05] LABS: Basophils % 0.1 %; Eosinophils % 0.1 %; Hematocrit 50.1 % (37-53); Lymphocytes # 0.5 10^3/uL (0.8-4.8); Lymphocytes % 5.1 %; Mean Corpuscular HGB Conc 32.5 g/dL (30-55); Mean Corpuscular Hemoglobin 31.3 pg (27-33); Mean Corpuscular Volume 96.3 fl (82-101); Mean Platelet Volume 12.5 fL (7.4-10.4); Monocytes # 0.6 10^3/uL (0.2-0.9); Monocytes % 6.6 %; Neutrophils # 7.75 10^3/uL (1.8-7.7); Neutrophils % 87.6 %; Nucleated Red Blood Cells % 0 %; Platelet Count 122 10^3/cmm (157-399); Red Cell Distribution Width 14.3 % (12.1-15.1); White Blood Count 8.84 10^3/uL (3.29-11.43)
[2023-08-24 04:23] LABS: Troponin 5 6HR 76.55 ng/L (0-15); Troponin 5 6HR Delta 7.55 ng/L (0-12)
[2023-08-24 04:40] LABS: Alanine Aminotransferase 17 U/L (0-41); Albumin Level 4.2 g/dL (3.5-5.2); Alkaline Phosphatase 94 U/L (40-130); Anion Gap 20.5 (5-19); Blood Urea Nitrogen 19 mg/dL (8-23); Calcium 8.9 mg/dL (8.5-10.5); Carbon Dioxide 27 mmol/L (22-29); Chloride 98 mmol/L (98-107); Creatinine Clr Calc Pharmacy 73.3745; Globulin 2.8 g/dL (1.3-4.6); Glucose 95 mg/dL (65-115); Magnesium 2.1 mg/dL (1.7-2.3); Osmolality Calculated 294 mOsm/kg (285-295); Potassium 4.5 mmol/L (3.5-5.1); Sodium 141 mmol/L (136-145); Thyroid Stimulating Hormone 47.17 uIU/mL (0.27-4.20); Total Bilirubin 1.7 mg/dL (0.15-1.2)
[2023-08-24 04:41] LABS: Aspartate Amino Transferase 30 U/L (0-40)
[2023-08-24 06:37] LABS: Glucose Point of Care 99 mg/dL (70-110)
[2023-08-24] MEDS: pantoprazole DR 40 mg Tablet PO (08:45)
[2023-08-24] MEDS: metoprolol tartrate 25 mg Tablet PO ×2 (08:45→20:57)
[2023-08-24] MEDS: FUROsemide 10 mg/mL SDV 4mL 40 MG IVP (08:45)
[2023-08-24] MEDS: aspirin 81 mg EC Tablet PO (08:45)
[2023-08-24] MEDS: atorvastatin 40 mg Tablet 20 MG PO (08:45)
[2023-08-24] MEDS: enoxaparin 40 mg/0.4 mL Syringe SUBCUT (08:45)
[2023-08-24] MEDS: tamsulosin 0.4 mg Capsule 0.400000000000000022 MG PO (08:45)
--- NOTE | 2023-08-24 08:46 | PC.PHAR ---
Addendum entered by Mi Mann 08/24/23 14:24: MET BOTH SONS IN ROOM. THEY STATE PT DOES NOT TAKE ANY HIS MEDICATIONS, EVER. I PUT LAST FILL DATES IN THE NOTES FOR REVIEW AND LEFT ALL MEDICATIONS ON HIS MED HISTORY FILE. Addendum entered by Mi Mann 08/24/23 13:55: STILL NO ANSWER FROM SON-[facility] -NO MEDS SINCE 08/28/22, [facility] 11/2022, [facility] NOTHING FILLED, [facility] 11/2021. Original Note: PT STATES NURSE SETS UP HIS MEDICATIONS BUT HE DOES NOT KNOW THE NAME OF THE COMPANY WHO SENDS HER. PHONED [facility] ([facility]) WITH NO ANSWER. WILL CALL PHARMACY WHEN THEY OPEN AT 9AM FOR MED RECORDS. 08/24/23
--- NOTE | 2023-08-24 08:54 | USCV_ITS ---
Davy Reed Age: 78 Gender: M : 1945 Exam Date: 08/24/2023 13:41 Ordering Phys: Dariusz Velásquez MD Technologist: Exam Location: [facility] [place] Indication: CHF BP: 105 / 51 HR: 0 Rhythm: Sinus Technical Quality: Adequate MEASUREMENTS (Male / Female) Normal Values 2D ECHO LV Diastolic Diameter PLAX 5.3 cm 4.2 - 5.9 / 3.9 - 5.3 cm LV Systolic Diameter PLAX 4.7 cm IVS Diastolic Thickness 1.5 cm 0.6 - 1.0 / 0.6 - 0.9 cm IVS Systolic Thickness 2.0 cm LVPW Diastolic Thickness 1.5 cm 0.6 - 1.0 / 0.6 - 0.9 cm LVPW Systolic Thickness 1.4 cm LVOT Diameter 2.1 cm LV Ejection Fraction 2D Teich 24.2 % LV Ejection Fraction MOD 2C 53.1 % M-MODE LA Ao Ratio MM 1.1 AV Cusp Separation MM 2.2 cm DOPPLER LVOT Peak Velocity 72.0 cm/s AV Area Cont Eq vti 2.1 cm squared MV Area PHT 2.7 cm squared Mitral E to A Ratio 1.0 TR Peak Velocity 147.0 cm/s TR Peak Gradient 8.6 mmHg Right Atrial Pressure 3.0 mmHg Pulmonary Artery Systolic Pressu 11.6 mmHg PV Peak Velocity 98.0 cm/s FINDINGS Left Ventricle Left ventricle is mildly dilated. LV systolic function is mildly reduced with EF of 40 to 45%. Mild global hypokinesis. Right Ventricle Grossly normal Right Atrium Normal in size Left Atrium Dilated Mitral Valve Structurally normal mitral valve. Mild mitral regurgitation. Aortic Valve Aortic valve is thickened. No significant aortic stenosis. Mild to moderate aortic regurgitation. Tricuspid Valve Mild tricuspid regurgitation. Pulmonary artery systolic pressure is normal. Pulmonic Valve Moderate pulmonic regurgitation. Pericardium Normal Aorta Ascending aorta is mildly dilated with diameter of 3.61cm IVC Appears to be normal CONCLUSIONS LV systolic function is mildly reduced with EF of 40-45% Left atrial dilation Mild mitral regurgitation Mild to moderate aortic regurgitation Mild tricuspid regurgitation Ascending aorta is mildly dilated with diameter of 3.61cm. Compared to prior echocardiogram from 2013, ascending aorta is mildly dilated now. Man Conde MD (Electronically Signed) Final Date: 25 August 2023 10:51 S
--- NOTE | 2023-08-24 08:55 | PM.PN ---
Subjective Subjective: Admitted overnight. H&P and labs appreciated. Patient seen with multiple family members at bedside including son and daughter. Patient is resting comfortably in bed, awake but alert to self, being in the hospital. He states he tries to take his medications himself but as per the family member he has been very reluctant taking his medications in the past. Patient states his breathing is better. Currently on 2 L oxygen supplementation and maintaining over 90%. Having frequent VPCs on environmental monitoring technician. Vitals/I&O/Wt Last Vital Signs Temp 98.5 F 08/24/23 07:38 Pulse 71 08/24/23 08:19 Resp 16 08/24/23 07:38 BP 146/79 08/24/23 07:38 Pulse Ox 100 08/24/23 08:19 O2 Del Method Nasal Cannula 08/24/23 08:19 O2 Flow Rate 2 08/24/23 08:19 08/23/23 08/24/23 08/24/23 22:59 06:59 14:59 Output Total 2049 / 2049 Balance -2049 / -2049 Weight last 48 hrs Weight 125.645 kg Weight 125.736 kg Physical Exam Narrative: Accompanied by his sons at bedside. Const: COMMON NORMALS: patient oriented x3 and alert GENERAL APPEARANCE: cooperative and frail appearing NUTRITIONAL APPEARANCE: thin ORIENTATION/CONSCIOUSNESS: Yes awake HENMT: COMMON NORMALS: oropharynx normal Neck/C-Spine: COMMON NORMALS: no JVD Resp: AUSCULTATION: diminished lung sounds on the right in the lower lung rodriguez Cardio: COMMON NORMALS: no JVD, regular rhythm, S1 normal heart sound present, S2 normal heart sound present and No murmurs present (Cardio) RHYTHM: regular rhythm HEART SOUNDS: S1 normal heart sound present and S2 normal heart sound present GI: COMMON NORMALS: Normal to inspection, nondistended, normoactive bowel sounds present, Soft to palpation and non-tender PALPATION: Yes Soft to palpation Extremity: COMMON NORMALS: no joint enlargement GENERAL: Yes edema (2+) Neuro: COMMON NORMALS: patient oriented x3 and moves all extremities SENSORIUM/ORIENTATION: Yes alert OTHER: Bilateral pupil equal and reactive, right-sided power upper limb and lower limb 3/5, left side 4/5, right-sided facial droop Skin: COMMON NORMALS: no rashes or lesions noted GENERAL SKIN EXAM: no rashes or lesions noted Urinary Catheter Management: Flores: Cath Placed During This Visit: yes Reason for Continuing Indwelling Catheter: Accurate Measurement of Urinary Output in Critically Ill Patients Urinary Catheter Date of Insertion: 08/23/23 Urinary Catheter Time of Insertion: 21:42 Data 08/24/23 02:59 08/24/23 02:59 A&P Assessment and plan (1) CHF exacerbation: History of ischemic cardiomyopathy. Unknown type. No last echocardiogram in the system. Check echocardiogram. Fluid restriction up to 1500 cc. Continue with IV Lasix 40 mg daily. Strict input output charting. Daily weight. Continue with Flores catheterization. Monitor electrolytes. (2) Generalized weakness: Unknown cause. Could be in setting of congestive heart failure. Patient is also noncompliant with medications. On review it seems patient's TSH in the past was elevated. Check free T4, TSH, vitamin B12, iron panel. Restart home dose of levothyroxine for now. Depending on TSH levels will check cortisol level. Check D-dimer. As per family members he does have history of multiple strokes in the past. CT head on admission negative for acute abnormality. Will check CTA head and neck, lower limb Dopplers. He had a fall at home. C-spine CT and head CT were obtained. C-spine CT with moderate annular disc bulge at C3-4 since 10/07/2018. Moderate canal stenosis. Cord contour flattening and indentation, PT evaluation. Possibility of transfer to SNF. Patient and family member is agreeable. (3) HTN (hypertension): Goal blood pressure less than 140/90 mmHg. Patient having occasional episodes of VPCs. Continue with metoprolol 25 mg twice daily. Holding off on higher dose of home dose metoprolol and losartan for now. Will uptitrate as for goal blood pressures. Qualifiers: Hypertension type: primary hypertension Qualified Code(s): I10 - Essential (primary) hypertension (4) Ischemic cardiomyopathy: (5) Acute congestive heart failure with left ventricular diastolic dysfunction: (6) S/P carotid endarterectomy: (7) Noncompliance: Plan CAD: Continue aspirin, statin, and beta-jen. HLD: Continue statin. Carotid disease: Continue aspirin, statin. Optimize cardiovascular risk. History of PE GERD Hypothyroidism: Requesting to confirm dose of levothyroxine. Check TSH. Other medical problems CODE STATUS: Discussed in detail with patient. Full code. He would want his daughter Ms. Willis to make medical decisions for him when he is not able to. Cardiac diet Protonix for PUD prophylaxis Lovenox for DVT prophylaxis. Attestations Medical Necessity Statement*: Requires further hospitalization for management of generalized weakness in setting of severe hypothyroidism, congestive heart failure in setting of ischemic cardiomyopathy while safe discharge planning is sought Diagnoses CHF exacerbation I50.9 Generalized weakness R53.1 Primary hypertension I10 Hypertension type: primary hypertension Ischemic cardiomyopathy I25.5 Acute congestive heart failure with left ventricular diastolic dysfunction I50.31 S/P carotid endarterectomy Z98.890 Noncompliance Z91.199
[2023-08-24] MEDS: levothyroxine 175 mcg Tablet PO (09:51)
[2023-08-24 11:05] LABS: Glucose Point of Care 126 mg/dL (70-110)
--- NOTE | 2023-08-24 13:44 | CT_ITS ---
WS: [id number] CTA HEAD AND NECK TECHNIQUE: Contrast enhanced CTA of the head and neck with coronal and sagittal reformatted images an d maximum intensity projection (MIP) images. NASCET criteria utilized. CLINICAL INFORMATION: History of stroke, generalized weakness COMPARISON: None. DLP: 1190.[address] scans at [facility] use at least one of these dose optimization techniques: automated e xposure control; mA and/or kV adjustment per patient size (includes targeted exams where dose is matc hed to clinical indication); or iterative reconstruction. FINDINGS: Some images are degraded through the bifurcations due to swallowing artifact. No evidence intracranial hemorrhage or mass effect. Moderate small vessel changes with moderate paren chymal volume loss. Mild prominence of the ventricular system is unchanged over multiple prior examin ations. Chronic infarct with encephalomalacia LEFT parasagittal occipital lobe. Chronic lacunar infar cts in the RIGHT cerebellum. Intracranial vascular calcification. No extra-axial fluid collections. Paranasal sinuses are well aerated. Mastoid air cells are well aerated. Normal posterior nasopharynx. RIGHT: Prior RIGHT carotid endarterectomy. RIGHT common carotid artery is patent. No significant recu rrent RIGHT ICA stenosis. RIGHT ICA is patent to the skull base. Cavernous carotid calcification. LEFT: LEFT common carotid artery is patent. Severe stenosis with a tiny residual lumen LEFT proximal ICA. LEFT ICA remains patent to the skull base with severe tortuosity. Moderate cavernous carotid grupo cification. 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 Small amount of flow in the distal RIGH T vertebral artery. LEFT vertebral artery is patent to the basilar junction. Basilar artery is patent . Persistent LEFT CREDIT OR LOANS OFFICER. Normal vascularity to the RIGHT CREDIT OR LOANS OFFICER territory. Both ICAs are patent at the skull base. Moderate cavernous carotid calcification. Normal vascularity to the KATIE territory. Normal vascularity to both MCA territories bilaterally. No evidence of proximal flow-limiting stenosis. Emphysematous changes in the lung apices. Fibrosis lung apices bilaterally. Partially visualized nodu le or loculated fluid along the LEFT fissure measuring 2.[address] follow-up. The proximal subclavian arteries are patent. Mild to moderate irregular atheromatous disease with seg mental stenosis in the RIGHT distal subclavian and axillary arteries. Mild spondylitic changes cervic al spine. IMPRESSION: 1. 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 2. New high-grade stenosis LEFT proximal ICA with a tiny residual lumen. Stenosis measures approxima tely 80%. Tortuous LEFT ICA remains patent to the skull base. 3. Prior RIGHT CEA. No recurrent RIGHT ICA stenosis. 4. No flow-limiting intracranial stenosis. LEFT dominant distal vertebral artery. 5. Persistent LEFT CREDIT OR LOANS OFFICER. 6. Partially visualized nodule or loculated fluid along the LEFT fissure measuring 2.[address] follow-up. Notified Dariusz Velásquez MD at 08/24/2023 4:18 PM.
--- NOTE | 2023-08-24 13:44 | USCV_ITS ---
Davy Reed Age: 78 Gender: M : 1945 Exam Date: 08/24/2023 20:24 Ordering Phys: Dariusz Velásquez MD Technologist: DOROTA Exam Location: [facility] [place] Indication: elevated D-dimer, RIGHT lower limb swelling. No history of DVT per patient. HISTORY: elevated D-dimer, RIGHT lower limb swelling. No history of DVT per patient. PROCEDURES: Venous duplex imaging was performed in bilateral lower extremities. The following venous structures were evaluated: common femoral vein, profunda vein, proximal portion of the greater saphenous vein, superficial femoral vein, and the popliteal vein. In addition, the posterior tibial veins were evaluated. Serial compression, augmentation maneuvers, and spectral Doppler flow evaluation were performed, which were normal. Bilaterally, the common femoral, superficial femoral, profunda femoral, popliteal, posterior tibial, and greater saphenous veins were identified and interrogated in the standard fashion. These veins were found to be easily compressible with spontaneous blood flow. No evidence of thrombus noted. CONCLUSIONS No evidence of right lower extremity DVT. No evidence of left lower extremity DVT. Rojas Honeycutt MD (Electronically Signed) Final Date: 25 August 2023 11:57 S
[2023-08-24 13:55] LABS: Cortisol Random 16.96 ug/dL (2.47-19.5); Free T4 Free Thyroxine 0.48 ng/dL (0.82-1.77); T3 Free 1.3 PG/ML (2.0-4.4)
[2023-08-24] MEDS: iohexol 350 mg/mL 500 mL Btl (per mL) IV (14:26)
[2023-08-24 16:46] LABS: Glucose Point of Care 114 mg/dL (70-110)
[2023-08-24 17:32] LABS: Iron 94 ug/dL (59-158); Total Iron Binding Capacity 204 mcg/dl; Unsaturated Iron Binding 110 ug/dL (112-347)
[2023-08-24 17:41] LABS: Vitamin B12 204 pg/mL (232-1245)
[2023-08-24] MEDS: levothyroxine 100 mcg SDV IVP (17:43)
--- NOTE | 2023-08-24 17:57 | ECG_ITS ---
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 Measurements Intervals [place] Rate: 65 P: 21 CO: 207 QRS: -77 QRSD: 182 T: 133 QT: 478 QTc: 497 Interpretive Statements SINUS RHYTHM WITH OCCASIONAL VENTRICULAR PREMATURE COMPLEXES INDETERMINATE AXIS RIGHT BUNDLE BRANCH BLOCK [120+ ms QRS DURATION, UPRIGHT V1, 40+ ms S IN I/aVL/V4/V5/V6] INFERIOR MYOCARDIAL INFARCTION , OF INDETERMINATE AGE [40+ ms Q WAVE AND/OR ST/T ABNORMALITY IN II/aVF] ST DEVIATION AND MARKED T-WAVE ABNORMALITY, CONSIDER ANTEROLATERAL ISCHEMIA [-0.5+ mV T-WAVE IN I/aVL/V3-V6] Compared to ECG 08/24/2023 04:04:06 Ventricular premature complex(es) now present Myocardial infarct finding now present T-wave abnormality now present Possible ischemia now present First degree AV block no longer present ST (T wave) deviation no longer present Electronically Signed On 08-25-2023 9:47:06 WAISTBAND SETTER by Man Conde M.D. [id number]
[2023-08-24 20:08] LABS: Glucose Point of Care 144 mg/dL (70-110)
[2023-08-24] MEDS: cyanocobalamin 1,000 mcg/mL SDV 1000 MCG IM (20:57)
[2023-08-25] VITALS (8 sets, daily range): BP systolic 126–139; BP diastolic 60–80; PULSE 53–63; RESP 14–20; TEMP 36.8–37.2; O2SAT 92–97; BMI 38.0
[2023-08-25 03:50] LABS: Basophils % 0.2 %; Eosinophils # 0.1 10^3/uL (0.0-0.8); Eosinophils % 2.4 %; Hematocrit 42.4 % (37-53); Lymphocytes # 0.7 10^3/uL (0.8-4.8); Lymphocytes % 11.9 %; Mean Corpuscular HGB Conc 32.5 g/dL (30-55); Mean Corpuscular Hemoglobin 31.2 pg (27-33); Mean Corpuscular Volume 95.7 fl (82-101); Mean Platelet Volume 12.1 fL (7.4-10.4); Monocytes # 0.6 10^3/uL (0.2-0.9); Monocytes % 10.7 %; Neutrophils # 4.34 10^3/uL (1.8-7.7); Neutrophils % 74.5 %; Nucleated Red Blood Cells % 0 %; Platelet Count 105 10^3/cmm (157-399); Red Blood Count 4.43 10^6/uL (3.85-5.65); Red Cell Distribution Width 14.3 % (12.1-15.1); White Blood Count 5.82 10^3/uL (3.29-11.43)
[2023-08-25 04:12] LABS: Cholesterol 160 mg/dL (0-200)
[2023-08-25 04:17] LABS: Alanine Aminotransferase 11 U/L (0-41); Albumin Level 3.4 g/dL (3.5-5.2); Alkaline Phosphatase 78 U/L (40-130); Anion Gap 12.7 (5-19); Aspartate Amino Transferase 22 U/L (0-40); Blood Urea Nitrogen 38 mg/dL (8-23); Calcium 8.6 mg/dL (8.5-10.5); Carbon Dioxide 29 mmol/L (22-29); Chloride 99 mmol/L (98-107); Creatinine Clr Calc Pharmacy 53.7878; Globulin 2.5 g/dL (1.3-4.6); Glucose 104 mg/dL (65-115); Osmolality Calculated 293 mOsm/kg (285-295); Potassium 3.7 mmol/L (3.5-5.1); Sodium 137 mmol/L (136-145); Total Protein 5.9 g/dL (6.6-8.7)
[2023-08-25 04:20] LABS: Estmated Average Glucose 117; Hemoglobin A1C 5.7 % (4.0-6.0)
[2023-08-25 04:30] LABS: Folate Level 8.4 ng/mL (4.5-32.2)
[2023-08-25 04:31] LABS: Chol HDL Ratio 3.02 mg/dL (1.0-5.00); HDL Cholesterol 53 mg/dL (60-100); LDL Cholesterol Calculated 89 mg/dL (50-129); Magnesium 2.2 mg/dL (1.7-2.3); Triglycerides 88 mg/dL (0-150); VLDL Cholestrol Calculation 18 mg/dL (0-30)
[2023-08-25 06:23] LABS: Glucose Point of Care 95 mg/dL (70-110)
[2023-08-25] MEDS: pantoprazole DR 40 mg Tablet PO (08:23)
[2023-08-25] MEDS: levothyroxine 100 mcg SDV IVP (08:23)
[2023-08-25] MEDS: aspirin 81 mg EC Tablet PO (08:23)
[2023-08-25] MEDS: cyanocobalamin 1,000 mcg/mL SDV 1000 MCG IM (08:23)
[2023-08-25] MEDS: atorvastatin 40 mg Tablet 20 MG PO (08:23)
[2023-08-25] MEDS: tamsulosin 0.4 mg Capsule 0.400000000000000022 MG PO (08:23)
[2023-08-25] MEDS: enoxaparin 40 mg/0.4 mL Syringe SUBCUT (08:24)
[2023-08-25] MEDS: metoprolol tartrate 25 mg Tablet PO ×2 (08:24→21:44)
[2023-08-25] MEDS: sodium chloride 0.9% 1,000 ML 30 ML IV (08:24)
--- NOTE | 2023-08-25 09:32 | PC.CHAP ---
Pastoral Care Encounter/Spiritual Assessment Type of Contact [] Declined planting machine crewman visit [] Patient/Family/Request visit [] Outpatient visit [] Follow-up visit [] Physician referral [] Code/Alert [] Routine visit [] Staff referral [] Actively dying [] Patient sleeping [] Family support [] [] Out of room [] Palliative care [] [x] Receiving care in room [] Pre-surgical visit [] Trauma [] Long length of stay [] ICU visit [] Other: Relational/Emotional Strength [] Patient feels connected with others/family/visitors/staff [] Distress [] Loneliness/isolation [] Abandonment Spirituality of Patient [] Person of Kayli [] Attends Moravian of their Kayli [] Believes in Prayer [] Reads Bible or Pentecostalism materials [] There are Spiritual issues to be addressed Rough And Truing Machine Operator Interventions [] Prayer [] Active listening [] Non-anxious presence [] Spiritual/emotional support [] Crisis/trauma care [] Spiritual counseling [] Bereavement support [] Provided bereavement packet [] Provided Bible/devotional materials [] Provided toy/stuffed animal, coloring book to patient or family member [] Provided Communion [] Anointing/[place] [] Salvation [] Completed spiritual assessment [] Other: Impact on Illness or Injury [] Angry [] Fearful [] Anxious [] Often cries [] Exhaustion [] Unable to work [] Unable to attend sikhism [] Unable to walk/stand [] Unable to read [] Unable to drive [] Unable to eat/drink [] Unable to sleep [] Unable to be with family [] Patient intubated [] Other: Summary Time spent with patient
[2023-08-25 11:20] LABS: Glucose Point of Care 134 mg/dL (70-110)
--- NOTE | 2023-08-25 13:08 | P.PN_ITS ---
Subjective 2 Subjective: No acute events overnight. Seen with daughter at bedside. Patient's resting comfortably in bed. Wakes up to verbal stimulus. On waking up he is alert and oriented to self, being in the hospital, date of . Denies any nausea, vomiting, headache. Vitals/I&O/Wt Last Vital Signs Temp 98.2 F 08/25/23 12:00 Pulse 55 L 08/25/23 12:00 Resp 16 08/25/23 12:00 BP 129/60 08/25/23 12:00 Pulse Ox 94 08/25/23 12:00 O2 Del Method Room Air 08/25/23 12:00 O2 Flow Rate 2 08/24/23 08:19 08/24/23 08/25/23 08/25/23 22:59 06:59 14:59 Output Total 350 / 1050 400 / 1450 Balance -350 / -1050 -400 / -1450 Weight last 48 hrs Weight 127.097 kg Weight 127.097 kg Weight 125.645 kg Weight 125.736 kg Physical Exam 2 Narrative: Accompanied by his sons at bedside. Const: COMMON NORMALS: patient oriented x3 and alert GENERAL APPEARANCE: c ooperative and frail appearing NUTRITIONAL APPEARANCE: thin O RIENTATION/CONSCIOUSNESS: Yes awake HENMT: COMMON NORMALS: oropharynx normal Neck/C-Spine: COMMON NORMALS: no JVD Resp: AUSCULTATION: diminished lung sounds on the right in the lower lung rodriguez Cardio: COMMON NORMALS: no JVD, regular rhythm, S1 normal heart sound present, S2 normal heart sound present and No murmurs present (Cardio) RHYTHM: regular rhythm HEART SOUNDS: S1 normal heart sound present and S2 normal heart sound present GI: COMMON NORMALS: Normal to inspection, nondistended, normoactive bowel sounds present, Soft to palpation and non-tender PALPATION: Yes Soft to palpation Extremity: COMMON NORMALS: no joint enlargement GENERAL: Yes edema (2+) Neuro: COMMON NORMALS: patient oriented x3 and moves all extremities S ENSORIUM/ORIENTATION: Yes alert OTHER: Bilateral pupil equal and reactive, right-sided power upper limb and lower limb 3/5, left side 4/5, right-sided facial droop Skin: COMMON NORMALS: no rashes or lesions noted GENERAL SKIN EXAM: no rashes or lesions noted Urinary Catheter Management: Flores: Cath Placed During This Visit: yes Reason for Continuing Indwelling Catheter: Accurate Measurement of Urinary Output in Critically Ill Patients Urinary Catheter Date of Insertion: 08/23/23 Urinary Catheter Time of Insertion: 21:42 Data 08/25/23 03:35 08/25/23 03:35 A&P Assessment and plan (1) CHF exacerbation: History of ischemic cardiomyopathy. Unknown type. No last echocardiogram in the system. Check echocardiogram. Fluid restriction up to 1500 cc. Patient euvolemic today. Developed mild ELIZA. Stop IV Lasix. Gentle IV hydration with normal saline at 30 cc/h. Strict input output charting. Daily weight. Continue with Flores catheterization. Monitor electrolytes. (2) Generalized weakness: Insetting of severe uncontrolled hypothyroidism along with congestive heart failure, left-sided high-grade ICA stenosis and noncompliance to medications. Appreciate thyroid panel. D-dimer elevated. Patient remains on room air so no concerns for PE. Lower limb Dopplers negative for DVT. Could be in setting of inflammation. Patient does have history of multiple strokes in the past. CT head on admission negative for acute abnormality. Appreciate CTA done yesterday. Continue with physical therapy evaluation. He had a fall at home. C-spine CT and head CT were obtained. C-spine CT with moderate annular disc bulge at C3-4 since 10/07/2018. Moderate canal stenosis. Cord contour flattening and indentation, (3) Hypothyroidism: TSH on admission found to be more than 40. Most likely in setting of noncompliance. Appreciate. T3 and free T4. Cortisol levels normal. Continue with IV levothyroxine at 100 mcg daily for now. Repeat thyroid panel in every 2 days. Qualifiers: Hypothyroidism type: acquired Qualified Code(s): E03.9 - Hypothyroidism, unspecified (4) Carotid artery stenosis, unilateral: Seen on CTA done on 08/24. Consistent with high-grade stenosis of left proximal ICA up to around 80%, prior right CEA. As per daughter at bedside patient had consideration of left CEA as well in the past but could not be done because of injury to vocal cords on right CEA and decision was made to hold off otherwise he can lose his voice. Daughter verbalizes understanding that patient is at high risk of stroke. Patient to follow-up with his vascular surgeon as an outpatient. Continue with baby aspirin, statin. (5) HTN (hypertension): Goal blood pressure less than 140/90 mmHg. Patient having occasional episodes of VPCs. Continue with metoprolol 25 mg twice daily. Holding off on higher dose of home dose metoprolol and losartan for now. Will uptitrate as for goal blood pressures. Qualifiers: Hypertension type: primary hypertension Qualified Code(s): I10 - Essential (primary) hypertension (6) D-dimer, elevated: D-dimer elevated to more than 11. Patient does have history of PE in the past. On room air currently. No tachycardia. Lower limb Dopplers negative for DVT. (7) Ischemic cardiomyopathy: (8) Acute congestive heart failure with left ventricular diastolic dysfunction: (9) S/P carotid endarterectomy: (10) Noncompliance: Plan ELIZA: Creatinine up to 1.5. Most likely in setting of aggressive IV diuresis leading to dehydration. Patient did have contrast-induced study yesterday. Poor oral intake. No moderate diuresis for now. IV fluids with normal saline at 30 cc/h. CAD: Continue aspirin, statin, and beta-jen. HLD: Continue statin. Carotid disease: Continue aspirin, statin. Optimize cardiovascular risk. History of PE GERD CODE STATUS: Discussed in detail with patient. Full code. He would want his daughter Ms. Willis to make medical decisions for him when he is not able to. Cardiac diet Protonix for PUD prophylaxis Lovenox for DVT prophylaxis. Discharge plan: Plan to discharge to SNF given significant deconditioning, noncompliance to medications. Both family and patient is agreeable. Case management alerted. Attestations 2 Medical Necessity Statement*: Requires further hospitalization for management of generalized weakness in setting of severe hypothyroidism, left ICA proximal stenosis and a patient is admitted with congestive heart failure Diagnoses CHF exacerbation I50.9 Generalized weakness R53.1 Acquired hypothyroidism E03.9 Hypothyroidism type: acquired Carotid artery stenosis, unilateral I65.29 Primary hypertension I10 Hypertension type: primary hypertension D-dimer, elevated R79.89 Ischemic cardiomyopathy I25.5 Acute congestive heart failure with left ventricular diastolic dysfunction I50.31 S/P carotid endarterectomy Z98.890 Noncompliance Z91.199
[2023-08-25 16:55] LABS: Glucose Point of Care 112 mg/dL (70-110)
[2023-08-26] VITALS (55 sets, daily range): BP systolic 147–160; BP diastolic 61–73; PULSE 52–69; RESP 7–35; O2SAT 80–95; BMI 38.0
[2023-08-26 04:17] LABS: Basophils % 0.2 %; Eosinophils # 0.1 10^3/uL (0.0-0.8); Eosinophils % 1.6 %; Hematocrit 41.5 % (37-53); Lymphocytes # 0.7 10^3/uL (0.8-4.8); Lymphocytes % 11.1 %; Mean Corpuscular HGB Conc 32.3 g/dL (30-55); Mean Corpuscular Hemoglobin 31.7 pg (27-33); Mean Corpuscular Volume 98.1 fl (82-101); Mean Platelet Volume 11.6 fL (7.4-10.4); Monocytes # 0.8 10^3/uL (0.2-0.9); Monocytes % 11.9 %; Neutrophils # 4.78 10^3/uL (1.8-7.7); Neutrophils % 74.7 %; Nucleated Red Blood Cells % 0 %; Platelet Count 102 10^3/cmm (157-399); Red Blood Count 4.23 10^6/uL (3.85-5.65); Red Cell Distribution Width 14.3 % (12.1-15.1); White Blood Count 6.39 10^3/uL (3.29-11.43)
[2023-08-26 04:36] LABS: Chloride 99 mmol/L (98-107); Potassium 3.7 mmol/L (3.5-5.1); Sodium 138 mmol/L (136-145)
[2023-08-26 04:45] LABS: Magnesium 2.3 mg/dL (1.7-2.3)
[2023-08-26 05:14] LABS: Alanine Aminotransferase 11 U/L (0-41); Albumin Level 3.5 g/dL (3.5-5.2); Alkaline Phosphatase 66 U/L (40-130); Anion Gap 14.6 (5-19); Aspartate Amino Transferase 22 U/L (0-40); Blood Urea Nitrogen 40 mg/dL (8-23); Calcium 8.7 mg/dL (8.5-10.5); Carbon Dioxide 28 mmol/L (22-29); Creatinine Clr Calc Pharmacy 57.9755; Globulin 2.4 g/dL (1.3-4.6); Glucose 111 mg/dL (65-115); Osmolality Calculated 294 mOsm/kg (285-295); Total Bilirubin 0.6 mg/dL (0.15-1.2); Total Protein 5.9 g/dL (6.6-8.7)
[2023-08-26 07:22] LABS: Glucose Point of Care 91 mg/dL (70-110)
[2023-08-26] MEDS: cyanocobalamin 1,000 mcg/mL SDV 1000 MCG IM (08:23)
[2023-08-26] MEDS: enoxaparin 40 mg/0.4 mL Syringe SUBCUT (08:23)
[2023-08-26] MEDS: metoprolol tartrate 25 mg Tablet PO (08:23)
[2023-08-26] MEDS: aspirin 81 mg EC Tablet PO (08:23)
[2023-08-26] MEDS: tamsulosin 0.4 mg Capsule 0.400000000000000022 MG PO (08:23)
[2023-08-26] MEDS: pantoprazole DR 40 mg Tablet PO (08:23)
[2023-08-26] MEDS: atorvastatin 40 mg Tablet 20 MG PO (08:23)
[2023-08-26] MEDS: levothyroxine 100 mcg SDV IVP (08:23)
--- NOTE | 2023-08-26 09:14 | PC.SOCIAL ---
IMM Update pg 2 of IMM updated and reviewed w/ patient. Copy provided. Copy dated, initialed and placed in chart.
[2023-08-26 11:44] LABS: SARS Covid-2 Antigen negative (Negative)
--- NOTE | 2023-08-26 12:50 | PM.DCS ---
Discharge Providers Date of Admission: 08/23/23 20:25 Date of Discharge: August 26, 2023 Attending Provider at Admission: Osman Hewitt Attending Provider at Discharge: Dariusz Velásquez MD Primary Care Provider: Manny Yang MD Diagnoses at Discharge Discharge Diagnosis (1) CHF exacerbation: Status: Acute (2) Generalized weakness: Status: Acute (3) Hypothyroidism: Status: Acute Qualifiers: Hypothyroidism type: acquired Qualified Code(s): E03.9 - Hypothyroidism, unspecified (4) Carotid artery stenosis, unilateral: Status: Acute (5) HTN (hypertension): Status: Acute Qualifiers: Hypertension type: primary hypertension Qualified Code(s): I10 - Essential (primary) hypertension (6) D-dimer, elevated: Status: Acute (7) Ischemic cardiomyopathy: Status: Acute (8) Acute congestive heart failure with left ventricular diastolic dysfunction: Status: Acute (9) S/P carotid endarterectomy: Status: Acute (10) Noncompliance: Status: Acute Reason for Visit Reason for Visit: AMS Brief History: History as per HPI: 78-year-old gentleman with history of CAD, stenting, ischemic cardiomyopathy, HLD, hypothyroidism, PE, other conditions, lives home alone, has been having progressive weakness, also suffered a fall, more dyspnea on exertion, as well as lower extremity edema. He states that he is keeping up with his medications, but his sons do not corroborate this. He denies chest pain or pressure. Denies fever, chills, cough or other symptoms of viral illness. In ER he is on 2 L nasal cannula oxygen, whereas normally he is not on any oxygen. NT-proBNP is 11,875. Cardiomegaly on chest x-ray. Hospital Course Hospital Course Patient was admitted to the hospital further evaluation and management of congestive heart failure and generalized weakness which was thought to be in setting of severe hypothyroidism and congestive heart failure in setting of noncompliance to medications. On admission patient also was found to have extensively high D-dimer of more than 11. Patient during hospitalization remained on room air, did not have DVT on lower limb Dopplers. During hospital CT head and neck was done which is concerning for stable right CEA changes, severe left ICA stenosis up to 80%. As per family patient did not have left CEA done before because of concerns for injury to vocal cord during right CEA procedure with risk of losing his voice. Patient did not have any stroke on CT head. During hospitalization patient was started on IV levothyroxine after which his thyroid levels and patient improved. Patient was seen by physical therapy and was advised for SNF placement for further rehabitation which both patient and her daughter/DPOA were agreeable to. He has been discharged in hemodynamically stable condition on adjusted antihypertensives to SNF for further rehabitation. He is advised to follow-up with his vascular surgeon in [place] within next 2 weeks for further evaluation and management of severe left ICA stenosis. Physical Exam Narrative: Accompanied by his sons at bedside. Const: COMMON NORMALS: patient oriented x3 and alert GENERAL APPEARANCE: cooperative and frail appearing NUTRITIONAL APPEARANCE: thin ORIENTATION/CONSCIOUSNESS: Yes awake HENMT: COMMON NORMALS: oropharynx normal Neck/C-Spine: COMMON NORMALS: no JVD Resp: AUSCULTATION: diminished lung sounds on the right in the lower lung rodriguez Cardio: COMMON NORMALS: no JVD, regular rhythm, S1 normal heart sound present, S2 normal heart sound present and No murmurs present (Cardio) RHYTHM: regular rhythm HEART SOUNDS: S1 normal heart sound present and S2 normal heart sound present GI: COMMON NORMALS: Normal to inspection, nondistended, normoactive bowel sounds present, Soft to palpation and non-tender PALPATION: Yes Soft to palpation Extremity: COMMON NORMALS: no joint enlargement GENERAL: Yes edema (2+) Neuro: COMMON NORMALS: patient oriented x3 and moves all extremities SENSORIUM/ORIENTATION: Yes alert OTHER: Bilateral pupil equal and reactive, right-sided power upper limb and lower limb 3/5, left side 4/5, right-sided facial droop Skin: COMMON NORMALS: no rashes or lesions noted GENERAL SKIN EXAM: no rashes or lesions noted Urinary Catheter Management: Flores: Cath Placed During This Visit: yes Reason for Continuing Indwelling Catheter: Accurate Measurement of Urinary Output in Critically Ill Patients Urinary Catheter Date of Insertion: 08/23/23 Urinary Catheter Time of Insertion: 21:42 Discharge Data Studies Completed and Pending Completed Studies During Hospitalization Category Date Time Status CT cervical spin wo con* [id number] Stat Cat Scan 08/23/23 18:[address] head wo con* [id number] Stat Cat Scan 08/23/23 18:05 Completed CTA head neck [CT angio headneck* [id number]] Routine Cat Scan 08/24/23 13:44 Completed XR chest 1V portable [id number] Stat Exams 08/23/23 18:05 [place] [id number] Routine Ultrasound 08/24/23 13:44 Completed CV. echo complete* [id number] Routine Ultrasound 08/24/23 08:54 Completed Pending at discharge Category Date Time Status MAG [Magnesium] AM LABS Lab 08/27/23 04:00 Ordered Radiology Impressions Cervical Spine CT 08/23/23 18:05 IMPRESSION: 1. No acute fracture or traumatic malalignment. 2. Moderate annular disc bulge increased at C3-C4 since 10/07/2018 study. Moderate canal stenosis , cord contour flattening and indentation. Clinical correlation for any neurologic symptomatology and further evaluation with MR as clinically warranted. Chest X-Ray 08/23/23 18:05 IMPRESSION: 1. Small left-sided pleural effusion. 2. No pneumothorax. Head CT 08/23/23 18:05 IMPRESSION: 1. No acute intracranial or calvarial abnormality. No change in the intracranial contents from 11/29/2021. 2. Moderate chronic microvascular cerebral parenchymal change and cerebral volume atrophy. Echocardiogram: CONCLUSIONS LV systolic function is mildly reduced with EF of 40-45% Left atrial dilation Mild mitral regurgitation Mild to moderate aortic regurgitation Mild tricuspid regurgitation Ascending aorta is mildly dilated with diameter of 3.61cm. Compared to prior echocardiogram from 2013, ascending aorta is mildly dilated now. Man Conde MD (Electronically Signed) Final Date: 25 August 2023 10:51 CTA head and neck: IMPRESSION: 1. 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 2. New high-grade stenosis LEFT proximal ICA with a tiny residual lumen. Stenosis measures approximately 80%. Tortuous LEFT ICA remains patent to the skull base. 3. Prior RIGHT CEA. No recurrent RIGHT ICA stenosis. 4. No flow-limiting intracranial stenosis. LEFT dominant distal vertebral artery. 5. 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 6. Partially visualized nodule or loculated fluid along the LEFT fissure measuring 2.[address] follow-up. Laboratory Results WBC 6.39 10^3/uL (3.29-11.43) 08/26/23 04:10 RBC 4.23 10^6/uL (3.85-5.65) 08/26/23 04:10 Hgb 13.40 g/dL (11.27-16.99) 08/26/23 04:10 Hct 41.5 % (37-53) 08/26/23 04:10 MCV 98.1 fl (82-101) 08/26/23 04:10 MCH 31.7 pg (27-33) 08/26/23 04:10 MCHC 32.3 g/dL (30-55) 08/26/23 04:10 RDW 14.3 % (12.1-15.1) 08/26/23 04:10 Plt Count 102 10^3/cmm (157-399) L 08/26/23 04:10 MPV 11.6 fL (7.4-10.4) H 08/26/23 04:10 Neut % (Auto) 74.7 % 08/26/23 04:10 Lymph % (Auto) 11.1 % 08/26/23 04:10 Posey % (Auto) 11.9 % 08/26/23 04:10 Eos % (Auto) 1.6 % 08/26/23 04:10 Baso % (Auto) 0.2 % 08/26/23 04:10 Neut # (Auto) 4.78 10^3/uL (1.8-7.7) 08/26/23 04:10 Lymph # (Auto) 0.7 10^3/uL (0.8-4.8) L 08/26/23 04:10 Posey # (Auto) 0.8 10^3/uL (0.2-0.9) 08/26/23 04:10 Eos # (Auto) 0.1 10^3/uL (0.0-0.8) 08/26/23 04:10 Baso # (Auto) 0.0 10^3/uL (0.0-0.1) 08/26/23 04:10 Nucleated RBC % (auto) 0 % 08/26/23 04:10 Nucleated RBCs # 0.0 /100WBC 08/26/23 04:10 PT 14.00 SECONDS (12.1-14.9) 08/23/23 18:15 INR 1.05 (0.8-1.2) 08/23/23 18:15 D-Dimer 11.40 ug/mLFEU (0-0.59) H 08/24/23 09:45 Sodium 138 mmol/L (136-145) 08/26/23 04:10 Potassium 3.7 mmol/L (3.5-5.1) 08/26/23 04:10 Chloride 99 mmol/L (98-107) 08/26/23 04:10 Carbon Dioxide 28 mmol/L (22-29) 08/26/23 04:10 Anion Gap 14.6 (5-19) 08/26/23 04:10 BUN 40 mg/dL (8-23) H 08/26/23 04:10 Creatinine 1.4 mg/dL (0.7-1.2) H 08/26/23 04:10 GFR Calculation Not Reportable 08/26/23 04:10 Glucose 111 mg/dL (65-115) 08/26/23 04:10 POC Glucose 91 mg/dL (70-110) 08/26/23 07:02 Estimat Average Glucose 117 08/25/23 03:35 Hemoglobin A1c 5.7 % (4.0-6.0) 08/25/23 03:35 Calculated Osmolality 294 mOsm/kg (285-295) 08/26/23 04:10 Lactic Acid 1.8 mmol/L (0.5-2.2) 08/23/23 18:15 Calcium 8.7 mg/dL (8.5-10.5) 08/26/23 04:10 Magnesium 2.3 mg/dL (1.7-2.3) 08/26/23 04:10 Iron 94 ug/dL (59-158) 08/24/23 09:45 TIBC 204 mcg/dl 08/24/23 09:45 % Saturation 46.0 % (20-50) 08/24/23 09:45 Unsat Iron Binding 110 ug/dL (112-347) L 08/24/23 09:45 Total Bilirubin 0.6 mg/dL (0.15-1.2) 08/26/23 04:10 AST 22 U/L (0-40) 08/26/23 04:10 ALT 11 U/L (0-41) 08/26/23 04:10 Alkaline Phosphatase 66 U/L (40-130) 08/26/23 04:10 Creatine Kinase 180 U/L (39-308) 08/23/23 18:15 Troponin T Baseline 69 ng/L (0-15) H 08/23/23 18:15 Troponin T 120 Minute 73.82 ng/L (0-15) H 08/23/23 20:50 Delta Troponin T 4.82 ABS# (0-10) 08/23/23 20:50 Troponin T Hi Sens 6Hr 76.55 ng/L (0-15) H 08/24/23 02:59 Troponin T Hi Sens 6Hr Delta 7.55 ng/L (0-12) 08/24/23 02:59 NT-Pro-B Natriuret Pep 81423 pg/mL (0-450) H 08/23/23 18:15 Total Protein 5.9 g/dL (6.6-8.7) L 08/26/23 04:10 Albumin 3.5 g/dL (3.5-5.2) 08/26/23 04:10 Globulin 2.4 g/dL (1.3-4.6) 08/26/23 04:10 Triglycerides 88 mg/dL (0-150) 08/25/23 03:35 Cholesterol 160 mg/dL (0-200) 08/25/23 03:35 LDL Cholesterol, Calc 89 mg/dL (50-129) 08/25/23 03:35 Total VLDL Cholesterol 18 mg/dL (0-30) 08/25/23 03:35 HDL Cholesterol 53 mg/dL (60-100) L 08/25/23 03:35 Cholesterol/HDL Ratio 3.02 mg/dL (1.0-5.00) 08/25/23 03:35 Vitamin B12 204 pg/mL (232-1245) L 08/24/23 09:45 Folate 8.4 ng/mL (4.5-32.2) 08/25/23 03:35 Procalcitonin 0.07 ng/mL (0-0.5) 08/23/23 18:15 TSH 47.17 uIU/mL (0.27-4.20) H 08/24/23 02:59 Free T4 0.48 ng/dL (0.82-1.77) L 08/24/23 09:45 Free T3 1.3 PG/ML (2.0-4.4) L 08/24/23 09:45 Random Cortisol 16.96 ug/dL (2.47-19.5) 08/24/23 09:45 Urine Color Isabell (Yellow) 08/23/23 20:15 Urine Appearance Sl hazy (CLEAR) A 08/23/23 20:15 Urine pH 6.5 (5-7) 08/23/23 20:15 Ur Specific [place] 1.020 (1.005-1.030) 08/23/23 20:15 Urine Protein 2+ (Negative) H 08/23/23 20:15 Urine Glucose (UA) Norm (Normal) 08/23/23 20:15 Urine Ketones 1+ (Negative) H 08/23/23 20:15 Urine Blood Trace (Negative) H 08/23/23 20:15 Urine Nitrate Negative (Negative) 08/23/23 20:15 Urine Bilirubin 1+ (Negative) H 08/23/23 20:15 Urine Urobilinogen 1 mg/dL (Negative) H 08/23/23 20:15 Ur Leukocyte Esterase Trace (Negative) H 08/23/23 20:15 Urine RBC 0-4 /hpf (0-2) H 08/23/23 20:15 Urine WBC 0-4 /hpf (0-5) H 08/23/23 20:15 Ur Squamous Epith Cells 0-4 /hpf (0-5) H 08/23/23 20:15 Amorphous Sediment Not Reportable 08/23/23 20:15 Urine Bacteria Trace /hpf (NONE) 08/23/23 20:15 Urine Mucus 2+ /hpf 08/23/23 20:15 SARS-CoV-2 Ag (Rapid) negative (Negative) 08/26/23 10:54 Vitals Last Vital Signs Temp 98.9 F 08/25/23 16:00 Pulse 52 L 08/26/23 11:20 Resp 17 08/26/23 11:20 BP 160/73 08/26/23 11:20 Pulse Ox 95 08/26/23 11:20 O2 Del Method Room Air 08/26/23 08:00 O2 Flow Rate 2 08/24/23 08:19 Discharge Plan Discharge Patient Disposition: Xfer SNF Condition: Stable Prescriptions: New metoprolol tartrate 25 mg Tablet 25 mg PO BID@0900,2100 Qty: 60 0RF cyanocobalamin (vitamin B-12) 1,000 mcg capsule 1,000 mcg PO DAILY Qty: 30 0RF Continued alprazolam 0.25 mg tablet 0.25 mg PO BID PRN (Reason: anxiety or sleep) Qty: 60 1RF tamsulosin 0.4 mg capsule 0.4 mg PO DAILY Qty: 30 2RF aspirin [Aspir-Low] 81 mg tablet,delayed release (DR/EC) 81 mg PO DAILY levothyroxine 175 mcg capsule 175 mcg PO DAILY Qty: 90 3RF potassium chloride 20 mEq tablet extended release 20 meq PO DAILY Qty: 90 3RF Rx Instructions: take Potassium each time you take furosemide tablet. atorvastatin 20 mg tablet 20 mg PO DAILY Qty: 30 1RF Changed losartan 50 mg tablet 25 mg PO DAILY Qty: 90 3RF furosemide 40 mg tablet 40 mg PO DAILY Qty: 30 0RF Discontinued metoprolol tartrate 50 mg tablet 50 mg PO BID Discharge Orders: Discharge Order (Routine); Ordered 08/26/23 Ordered By: Dariusz Velásquez Referrals: [facility] [Outside] Manny Yang MD [Primary Care Provider] - Discharge Diet: Regular Discharge Activity: Resume usual activity and Increase activity as tolerated Patient Instructions: Metoprolol (By mouth) (Lopressor, Toprol XL), Cyanocobalamin (By injection) (B-12 Compliance Injection Kit, B-12..., Weakness (DC), Altered Mental Status (ED), CHF Stoplight, Opioid Safety Activity Restrictions/Additional Instructions: Continue taking your medications as before. Lasix has been changed to once daily. Losartan has been changed to 50 mg daily. Metoprolol dose has been changed to 25 mg twice daily. Please follow-up with a vascular surgeon in [place] within next 2 weeks for further evaluation and management of severe left ICA stenosis. Continue to increase physical activity as possible. You should have a repeat thyroid panel done in 1 month. Discharge Attestations Time Spent in Discharge Care*: greater than 30 min Quality Metrics Clinical Quality Measures [ No reported AMI, CVA or VTE this stay] Coding Level of Care Code Acute Code for Chg Fwd Diagnoses CHF exacerbation I50.9 Generalized weakness R53.1 Acquired hypothyroidism E03.9 Hypothyroidism type: acquired Carotid artery stenosis, unilateral I65.29 Primary hypertension I10 Hypertension type: primary hypertension D-dimer, elevated R79.89 Ischemic cardiomyopathy I25.5 Acute congestive heart failure with left ventricular diastolic dysfunction I50.31 S/P carotid endarterectomy Z98.890 Noncompliance Z91.199
--- NOTE | 2023-08-26 13:59 | PC.NURSE ---
Discharge Note Patient discharged to home via POV accompanied by ready transport. Discharge instructions reviewed with patient and/or banking representative. Mobile pharmacy medications and/or prescriptions provided. Belongings/home medications returned.
== END 2023-08-26 14:00 | disposition skilled nursing facility (03) | DRG 291 ==
LOC: ER 18:13 → CSU 21:02
PROVIDERS: Admitting Provider Internal Medicine; Emergency Provider Internal Medicine; PCP Family Medicine; Visit Provider Student in an Organized Health Care Education/Training Program
DX: I11.0 Hypertensive heart disease with heart failure (principal); I50.33 Acute on chronic diastolic (congestive) heart failure; N17.9 Acute kidney failure, unspecified; I49.3 Ventricular premature depolarization; E86.0 Dehydration; R79.89 Other specified abnormal findings of blood chemistry; Z91.148 Patient's other noncompliance with medication regimen for other reason; I65.22 Occlusion and stenosis of left carotid artery; I25.5 Ischemic cardiomyopathy; E78.5 Hyperlipidemia, unspecified; I25.10 Atherosclerotic heart disease of native coronary artery without angina pectoris; Z95.5 Presence of coronary angioplasty implant and graft; E03.9 Hypothyroidism, unspecified; I25.2 Old myocardial infarction; Z86.711 Personal history of pulmonary embolism; F41.9 Anxiety disorder, unspecified; K21.9 Gastro-esophageal reflux disease without esophagitis
CPT/HCPCS: 36415; 36416; 51702; 70450; 70496; 70498; 71045; 72125; 80053; 80061; 81001; 82533; 82550; 82607; 82746; 82962; 83036; 83540; 83550; 83605; 83735; 83880; 84145; 84439; 84443; 84481; 84484; 85025; 85378; 85610; 87426; 92523; 92610; 93005; 93306; 93970; 96372; 96374; 96376; 97110; 97162; 97167; 97530; 97535; 99285; A9270; J1650; J1940; J3420; J3490; J7030; Q9967

== ENCOUNTER 2023-09-21 08:15 | Inpatient (IN) | payer MEDICARE, BC, SELFPAY ==
[2023-09-21] VITALS (23 sets, daily range): BP systolic 103–145; BP diastolic 60–101; PULSE 77–133; RESP 14–24; TEMP 37–38.1; O2SAT 92–100
--- NOTE | 2023-09-21 08:23 | CT_ITS ---
WS: [id number] CT HEAD TECHNIQUE: Noncontrast CT of the head obtained from the skullbase to the vertex. CLINICAL INFORMATION: STROKE ALERT COMPARISON: CT 08/23/2023 and CTA 08/24/2023 DLP: [id number] scans at [facility] use at least one of these dose optimization techniques: automated e xposure control; mA and/or kV adjustment per patient size (includes targeted exams where dose is matc hed to clinical indication); or iterative reconstruction. FINDINGS: No evidence intracranial hemorrhage. New low-attenuation change in the LEFT MCA territory has develop ed since 08/24/2023 consistent with subacute ischemia. Edema in the LEFT posterior frontal and parieta l lobes extending into the LEFT anterior temporal lobe and LEFT basal ganglia compatible with subacut e ischemia. Mild mass effect on the LEFT lateral ventricle with mild LEFT to RIGHT midline shift kishan uring 2 to 3 mm. No hydrocephalus. Intracranial vascular calcifications similar to previous. LEFT proximal MCA calcification unchanged c ompared to previous. Chronic lacunar infarcts in the RIGHT cerebellum.Air-fluid levels in the paranas al sinuses consistent with sinusitis. Fluid within the LEFT mastoid air cells. IMPRESSION: 1. No evidence of intracranial hemorrhage 2. New subacute LEFT MCA territory infarct with diffuse edema involving the LEFT posterior frontal a nd parietal lobes extending into the LEFT anterior temporal lobe. Mild mass effect in the LEFT latera l ventricle. 3. Mild LEFT RIGHT midline shift measuring 2-3 mm. 4. Intracranial vascular calcification similar to previous. 5. Moderate small vessel changes with moderate parenchymal volume loss. 6. Chronic lacunar infarcts in the RIGHT cerebellum. 7. Paranasal sinusitis with air-fluid levels. 8. Mucosal thickening LEFT mastoid tip. Notified Sena Huang MD at 09/21/2023 8:34 AM.
[2023-09-21 08:33] LABS: Glucose Point of Care 110 mg/dL (70-110)
--- NOTE | 2023-09-21 08:38 | XR_ITS ---
WS: [id number] PORTABLE CHEST HISTORY: STROKE COMPARISON: 08/23/2023 Slightly elevated LEFT hemidiaphragm. Small LEFT pleural effusion. There is smooth pleural-based lobu lations in the LEFT lower thorax. These findings have progressed since 2019. Patient has had loculate d LEFT pleural effusion which has been previously described. There is also mild blunting of the RIGHT costophrenic angle. Cardiac size: Markedly enlarged heart. Mediastinum/Aorta: Normal mediastinum. No osseous abnormality seen. IMPRESSION: 1. Marked cardiomegaly. Similar to the study from 08/23/2023. 2. Loculated LEFT pleural effusion. 3. No pneumonia.
[2023-09-21 08:49] LABS: Basophils % 0.3 %; Eosinophils # 0.2 10^3/uL (0.0-0.8); Eosinophils % 2.2 %; Hematocrit 46.6 % (37-53); Lymphocytes # 0.4 10^3/uL (0.8-4.8); Lymphocytes % 4.3 %; Mean Corpuscular HGB Conc 32.6 g/dL (30-55); Mean Corpuscular Hemoglobin 31.1 pg (27-33); Mean Corpuscular Volume 95.3 fl (82-101); Mean Platelet Volume 11.2 fL (7.4-10.4); Monocytes # 0.6 10^3/uL (0.2-0.9); Neutrophils # 8.19 10^3/uL (1.8-7.7); Neutrophils % 86.4 %; Nucleated Red Blood Cells % 0 %; Platelet Count 330 10^3/cmm (157-399); Red Blood Count 4.89 10^6/uL (3.85-5.65); Red Cell Distribution Width 14.3 % (12.1-15.1); White Blood Count 9.49 10^3/uL (3.29-11.43)
[2023-09-21] MEDS: cefepime 2,000 MG in sodium chloride 0.9% (plus) 50 ML 100 MG IV (08:49)
--- NOTE | 2023-09-21 08:51 | PC.PHAR ---
pt is from [facility] [phone]-per sammi nurse from [facility] states the pt took all am meds today-states the pt finished his cipro 500mg bid states ordered on 09/16/23 and finished 09/20/23-sammi states the pt is not on any blood thinners or insulins-medications entered are what was on the pts mar and tar that was sent with the pt
--- NOTE | 2023-09-21 08:59 | W.ED.NEUROSD ---
HPI - Neuro Symptoms/Deficit General: Chief Complaint: ER Hold Stated Complaint: stroke alert Time Seen by Provider: 09/21/23 08:23 History of Present Illness: 78-year-old male who presents from senior living by ambulance. Reportedly he has had a stroke in the past with some right-sided deficit. Is unclear the severity of this. Per ambulance report the symptoms are worse today. I am unclear as to when he had his last stroke. And again with the severity of the symptoms are. Today he is flaccid on the right side with some right facial droop. Review of Systems Narrative: Unable to obtain secondary to clinical condition [facility] ED PFS: Medical History (Updated 09/21/23 @ 12:19 by Sena Huang MD) Noncompliance Basal cell carcinoma, face GERD (gastroesophageal reflux disease) Seborrheic keratoses Prostatitis, chronic Anxiety Chronic shortness of breath Pulmonary embolism Syncope Old inferior wall myocardial infarction Non-Hodgkin lymphoma Hypothyroidism ASHD (arteriosclerotic heart disease) Carotid stenosis, bilateral Ed syndrome Hyperlipidemia HTN (hypertension) Ischemic cardiomyopathy TIA (transient ischemic attack) Surgical History (Updated 08/27/23 @ 00:00 by LUIS Zavala) S/P carotid endarterectomy S/P PTCA (percutaneous transluminal coronary angioplasty) Family History Mother Cancer COLON Father CAD (coronary artery disease) Social History Smoking and tobacco/nicotine status: never used tobacco/nicotine Marital status: Single service: Yes branch: [employer] Physical Exam Narrative: EXAM NARRATIVE: General: Alert, Skin: Warm, dry. Head: Normocephalic, atraumatic. Neck: Supple, trachea midline. Eye: Extraocular movements are intact. Ears, nose, mouth and throat: mucosa moist. Cardiovascular: Regular, Normal peripheral perfusion. Respiratory: Lungs are clear to auscultation, respirations are non-labored, breath sounds are equal, Symmetrical chest wall expansion. Gastrointestinal: Soft, Nontender, Non distended, Normal bowel sounds. Musculoskeletal: Normal ROM, no deformity. Neurological: Patient is alert and will follow commands. Right side is flaccid. He also will not track with his eyes past midline to the right. His speech is slurred. This is worse than his baseline as far as his speech goes during the family. Psychiatric: Cooperative Course Vital Signs: Vital signs: Vital Signs Temperature 100.6 F H 09/21/23 08:26 Pulse Rate 129 H 09/21/23 12:52 Respiratory Rate 16 09/21/23 08:26 Blood Pressure 109/79 09/21/23 12:52 Pulse Oximetry 97 09/21/23 12:52 Oxygen Delivery Me thod Room Air 09/21/23 12:52 Oxygen Flow Rate 2 09/21/23 09:00 MDM - Neuro Symptoms/Deficit Medical Decision Making Medical decision making: Differential diagnosis including but not limited to and based on the above HPI, review of systems and physical exam: Concern for acute stroke or old stroke with new encephalopathy. History is a bit unclear. CT of the head was ordered. EKG. Chest x-ray. Urinalysis. Basic lab work. Orders placed to evaluate differential diagnosis based on the above differential, HPI and physical exam Lab Review: Laboratory results were reviewed and interpreted by myself the emergency room physician. BUN and creatinine are 19 and 1.0. Sodium is a bit low at 128. Potassium is a bit high at 5. CO2 was 26. White count is 9.5. Hemoglobin is 15. Lactic acid is not elevated at 1. Urine does appear to have greater than 100 whites and leukocyte esterase. But is nitrite negative. Given that the patient is febrile with increased encephalopathy I am placing him on broad-spectrum antibiotics as he has an indwelling Flores catheter and resides in a senior living. EKG: Time 8:27 AM rate 90. Sinus rhythm with frequent PVCs. Right bundle branch block. Left anterior fascicular block, No ST-T changes, This was reviewed and interpreted by myself the ER physician at 8:31 AM. EKG: Repeat at 11:39 AM. Rate 129 sinus tachycardia. Still with a right bundle branch block. There is increased ST depression at this time likely due to his rate. This was reviewed and interpreted by myself the ER physician at 11:[address] head: Initial noncontrast head CT shows what appears to be a subacute left infarction. No hemorrhage. No evidence of acute fracture.This was reviewed and interpreted by myself the ER physician. I discussed the findings with the radiologist on-call and the neurologist on-call who recommended CTA of the head. This was ordered Chest x-ray: Cardiomegaly, pleural effusion, no obvious infiltrate or pneumonia. No pneumothorax. This was reviewed and interpreted by myself the ER physician. CTA of the head and neck: 1. Subacute LEFT MCA territory infarct unchanged from earlier today. 2. Decreased vascularity to the area of ischemia in the LEFT MCA territory posterior division. LEFT proximal MCA vessels appear patent. 3. LEFT dominant vertebral artery. 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 4. Stable approximate 70 to 80% LEFT proximal ICA stenosis. 5. No significant RIGHT ICA stenosis. 6. Paranasal sinusitis. Consultation: Neurologist was consulted and evaluated the patient in the emergency room. He has evaluated the films. He recommends increase statin and full-strength aspirin at this time. Patient was on a baby aspirin prior to this. No other blood thinners. Reexamination: Patient has become more tachycardic. He is breathing a little bit faster. I spoke with his family and got a better idea on his history. Apparently he has had these deficits for some time but they are quite a bit worse today. He does not normally have a speech deficit. On his last admission apparently had this stroke and that is why he went to the senior living for rehab. He had also had some congestive heart failure. Over the last couple days it sounds like he has gotten quite a bit worse. Lab Data 09/21/23 08:23 09/21/23 09:43 Laboratory Results WBC 9.49 10^3/uL (3.29-11.43) 09/21/23 08:23 RBC 4.89 10^6/uL (3.85-5.65) 09/21/23 08:23 Hgb 15.20 g/dL (11.27-16.99) 09/21/23 08:23 Hct 46.6 % (37-53) 09/21/23 08:23 MCV 95.3 fl (82-101) 09/21/23 08:23 MCH 31.1 pg (27-33) 09/21/23 08:23 MCHC 32.6 g/dL (30-55) 09/21/23 08:23 RDW 14.3 % (12.1-15.1) 09/21/23 08:23 Plt Count 330 10^3/cmm (157-399) 09/21/23 08:23 MPV 11.2 fL (7.4-10.4) H 09/21/23 08:23 Neut % (Auto) 86.4 % 09/21/23 08:23 Lymph % (Auto) 4.3 % 09/21/23 08:23 Lamar % (Auto) 6.0 % 09/21/23 08:23 Eos % (Auto) 2.2 % 09/21/23 08:23 Baso % (Auto) 0.3 % 09/21/23 08:23 Neut # (Auto) 8.19 10^3/uL (1.8-7.7) H 09/21/23 08:23 Lymph # (Auto) 0.4 10^3/uL (0.8-4.8) L 09/21/23 08:23 Lamar # (Auto) 0.6 10^3/uL (0.2-0.9) 09/21/23 08:23 Eos # (Auto) 0.2 10^3/uL (0.0-0.8) 09/21/23 08:23 Baso # (Auto) 0.0 10^3/uL (0.0-0.1) 09/21/23 08:23 Nucleated RBC % (auto) 0 % 09/21/23 08: Nucleated RBCs # 0.0 /100WBC 09/21/23 08:23 PT 14.60 SECONDS (12.1-14.9) 09/21/23 09:43 INR 1.10 (0.8-1.2) 09/21/23 09:43 APTT 30.0 SECONDS (23.9-36.7) 09/21/23 09:43 Sodium 128 mmol/L (136-145) L 09/21/23 09:43 Potassium 5.0 mmol/L (3.5-5.1) 09/21/23 09:43 Chloride 92 mmol/L (98-107) L 09/21/23 09:43 Carbon Dioxide 26 mmol/L (22-29) 09/21/23 09:43 Anion Gap 15.0 (5-19) 09/21/23 09:43 BUN 19 mg/dL (8-23) 09/21/23 09:43 Creatinine 0.9 mg/dL (0.7-1.2) 09/21/23 09:43 GFR Calculation Not Reportable 09/21/23 09:43 Glucose 105 mg/dL (65-115) 09/21/23 09:43 POC Glucose 110 mg/dL (70-110) 09/21/23 08:29 Calculated Osmolality 269 mOsm/kg (285-295) L 09/21/23 09:43 Lactic Acid 1.0 mmol/L (0.5-2.2) 09/21/23 08:23 Calcium 8.9 mg/dL (8.5-10.5) 09/21/23 09:43 Total Bilirubin 1.1 mg/dL (0.15-1.2) 09/21/23 09:43 AST 48 U/L (0-40) H 09/21/23 09:43 ALT 53 U/L (0-41) H 09/21/23 09:43 Alkaline Phosphatase 267 U/L (40-130) H 09/21/23 09:43 Total Protein 7.1 g/dL (6.6-8.7) 09/21/23 09:43 Albumin 3.2 g/dL (3.5-5.2) L 09/21/23 09:43 Globulin 3.9 g/dL (1.3-4.6) 09/21/23 09:43 Urine Color Dark yellow (Yellow) 09/21/23 08:32 Urine Appearance Sl hazy (CLEAR) A 09/21/23 08:32 Urine pH 6 (5-7) 09/21/23 08:32 Ur Specific [place] 1.010 (1.005-1.030) 09/21/23 08:32 Urine Protein 1+ (Negative) H 09/21/23 08:32 Urine Glucose (UA) Norm (Normal) 09/21/23 08:32 Urine Ketones 1+ (Negative) H 09/21/23 08:32 Urine Blood 2+ (Negative) H 09/21/23 08:32 Urine Nitrate Negative (Negative) 09/21/23 08:32 Urine Bilirubin Neg (Negative) 09/21/23 08:32 Urine Urobilinogen 1 mg/dL (Negative) H 09/21/23 08:32 Ur Leukocyte Esterase 2+ (Negative) H 09/21/23 08:32 Urine RBC 5-10 /hpf (0-2) H 09/21/23 08:32 Urine WBC >100 /hpf (0-5) H 09/21/23 08:32 Ur Squamous Epith Cells None /hpf (0-5) 09/21/23 08:32 Amorphous Sediment Not Reportable 09/21/23 08:32 Urine Bacteria 2+ /hpf (NONE) H 09/21/23 08:32 Influenza Type A Ag negative (Negative) 09/21/23 08:58 Influenza Type B Ag negative (Negative) 09/21/23 08:58 SARS-CoV-2 Ag (Rapid) Negative (Negative) 09/21/23 08:58 All radiology interpretation(s) finalized by discharge Other Data Assessment and plan: Cerebrovascular accident Encephalopathy Dysarthria Urinary tract infection Fever History of congestive heart failure History of cerebrovascular accident -Consultation with neurology. They recommend admission. PT evaluation OT evaluation speech evaluation. Increase aspirin to 325 mg/day. Increase atorvastatin to 40 mg. I also requested an MRI tomorrow without contrast. -Patient has been on antibiotics for urinary tract infection. He has a fever today this could be related to a new stroke but his urine appears infected and he has an indwelling Flores catheter so I am treating him with Zyvox and cefepime. -I discussed the patient with the hospitalist on-call who is admitting the patient. -Patient is being admitted to the ICU - Discussed findings and plan with patient. Answered any questions. - All laboratory values were reviewed and interpreted personally by myself, the ER physician - All imaging was reviewed and interpreted personally by myself, the ER physician. - Evaluation and treatment of this problem were appropriate in the emergency setting -I spent a total of >35 minutes of critical care time managing the patient, independent of any other practitioner. The time involved in the performance of separately reportable procedures was not counted towards critical care time. Critical Care Time Critical Care Time: Attestation: I spent a total of >70 minutes of critical care time managing the patient, independent of any other practitioner. The time involved in the performance of separately reportable procedures was not counted towards critical care time. Discharge Plan Discharge Patient Disposition: Admitted As Inpatient Admit Provider: Dariusz Velásquez Clinical Impression: Cerebrovascular accident, Dysarthria, Encephalopathy, Urinary tract infection, Fever, Tachycardia Condition: Stable Coding Level of Care Code ED [employer] Tender for Jenifer Garcia
--- NOTE | 2023-09-21 09:14 | ECG_ITS ---
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 Measurements Intervals [place] Rate: 90 P: 40 CO: 198 QRS: -54 QRSD: 171 T: 14 QT: 425 QTc: 522 Interpretive Statements SINUS RHYTHM WITH FREQUENT VENTRICULAR PREMATURE COMPLEXES POSSIBLE LEFT ATRIAL ENLARGEMENT [-0.1mV P-WAVE IN V1/V2] INDETERMINATE AXIS RIGHT BUNDLE BRANCH BLOCK [120+ ms QRS DURATION, UPRIGHT V1, 40+ ms S IN I/aVL/V4/V5/V6] LEFT ANTERIOR FASCICULAR BLOCK [QRS AXIS <= -45, QR IN I, RS IN II] ST DEPRESSION, CONSIDER SUBENDOCARDIAL INJURY [0.1+ mV ST DEPRESSION] Compared to ECG 08/24/2023 17:57:57 Left anterior fascicular block now present ST (T wave) deviation now present.Myocardial infarct finding no longer present T-wave abnormality no longer present.Possible ischemia no longer present Electronically Signed On 09-21-2023 18:56:46 CDT by Lyle Valdes M.D. [id number] f
--- NOTE | 2023-09-21 09:37 | PM.CONSULT ---
Providers/Reason For Consult Consulting Physician/Specialty*: Amos Lopes MD neurology and epilepsy Reason for Consult*: Code stroke emergency department room #16 Primary Care Provider: Manny Yang MD History of Present Illness History of Present Illness Davy Reed is a 78 year old male with a history of remote left MCA distribution stroke with residual right-sided paralysis and spasticity and dysarthria and right lower facial weakness. The patient also has a history of a prior right carotid endarterectomy and Chronic occlusion of the RIGHT vertebral artery and New high-grade stenosis LEFT proximal ICA with a tiny residual lumen. Stenosis measures approximately 80%. Tortuous LEFT ICA remains patent to the skull base reported on CT angiogram performed on 08/24/2023 and reports of prior RIGHT CEA. No recurrent RIGHT ICA stenosis a persistent LEFT [employer]OR [employer]UCATION and partially visualized nodule or loculated fluid along the LEFT fissure measuring 2.[address] follow-up. The patient was evaluated in the [facility] emergency department on August 24, [address] head CT revealed no acute findings. The patient was continued on aspirin 81 mg p.o. daily and Lipitor 20 mg p.o. q. evening. According to the [facility], the patient's last known well was 09/20/2023. Patient was reported this morning to be experiencing increased right lower facial weakness with more dysarthria/slurred speech and therefore he was transported to the [facility] emergency department. Code stroke was initiated prior to the patient's arrival to the emergency department. On examination, the patient's NIH score = 4 secondary to left gaze preference with inability to look past the midline to the right it was undetermined if this was acute or chronic, obvious right lower facial weakness, and increased dysarthria. The patient's right upper and right lower extremity spasticity and paralysis was reported to be chronic. Glucose Accu-Chek 110. Noncontrast head CT obtained on 09/21/2023 was reported to reveal No evidence of intracranial hemorrhage. New subacute LEFT MCA territory infarct with diffuse edema involving the LEFT posterior frontal and parietal lobes extending into the LEFT anterior temporal lobe. Mild mass effect in the LEFT lateral ventricle. Mild LEFT RIGHT midline shift measuring 2-3 mm. Intracranial vascular calcification similar to previous. Moderate small vessel changes with moderate parenchymal volume loss. Chronic lacunar infarcts in the RIGHT cerebellum. X-ray of the chest performed on 09/21/2023 revealed Marked cardiomegaly. Similar to the study from 08/23/2023. Loculated LEFT pleural effusion. No pneumonia. I recommended the patient undergo CT angiogram of the head and neck to assess for progression and left ICA stenosis cardiology evaluation as well as increasing the patient's Lipitor and aspirin. Since the patient last known well was 09/20/2023, patient was not a candidate for thrombolytics and no thrombolytics were administered. Past medical history: Remote left MCA distribution stroke with residual right upper and right lower extremity paralysis and spasticity, right lower facial weakness and dysarthria Chronic lacunar infarcts involving the right cerebral 80% stenosis of the left internal carotid artery reported on CT angiogram performed on August 2023 Cardiomegaly Hypothyroidism Congestive heart failure Prostate hypertrophy Seborrheic keratosis Coronary atherosclerotic heart disease Hyperlipidemia Ischemic cardiomyopathy Right carotid endarterectomy Status post percutaneous transluminal coronary angioplasty Drug allergies: None Current home medications: Tylenol 650 mg p.o. every 4 hours as needed Xanax 0.25 mg p.o. twice daily, as needed Aspirin 81 mg p.o. daily Lipitor 20 mg p.o. daily Dulcolax 10 mg p.o. daily as needed B12 1000 mcg p.o. daily Lasix 40 mg p.o. daily Synthroid 175 mcg p.o. daily Losartan 25 mg p.o. daily Metoprolol 25 mg p.o. twice daily Potassium chloride 20 mEq p.o. daily Tamsulosin 0.4 mg p.o. daily Fleets enema 180 mL as needed Milk of magnesia 30 mL p.o. daily, as needed Habits: Unknown Family history: Unknown Review of Systems General: Reports: 10 or more systems reviewed and unremarkable except in HPI and below Medications/Allergies Home Medications Medication Instructions Recorded Confirmed Last Taken Type acetaminophen 325 mg tablet 650 mg PO Q4H PRN general 09/21/23 09/21/23 Unknown History discomfort alprazolam 0.25 mg tablet 0.25 mg PO BID PRN Anxiety 09/21/23 09/21/23 Unknown History aspirin 81 mg tablet,delayed 81 mg PO DAILY@09/21/23 09/21/23 09/21/23 History release atorvastatin 20 mg tablet 20 mg PO DAILY@09/21/23 09/21/23 09/20/23 History bisacodyl 10 mg rectal suppository 10 mg MI DAILY PRN Constipation 09/21/23 09/21/23 Unknown History (Dulcolax (bisacodyl)) cyanocobalamin (vitamin B-12) 1,000 mcg PO DAILY@09/21/23 09/21/23 09/21/23 History 1,000 mcg capsule furosemide 40 mg tablet 40 mg PO DAILY@09/21/23 09/21/23 09/21/23 History levothyroxine 175 mcg tablet 175 mcg PO DAILY@09/21/23 09/21/23 09/21/23 History losartan 25 mg tablet 25 mg PO DAILY@09/21/23 09/21/23 09/21/23 History magnesium hydroxide 400 mg/5 mL 30 ml PO DAILY PRN Constipation 09/21/23 09/21/23 Unknown History oral suspension (Milk of Magnesia) metoprolol tartrate 25 mg tablet 25 mg PO BID@09/21/23 09/21/23 09/21/23 History potassium chloride 20 mEq 20 meq PO DAILY@09/21/23 09/21/23 09/21/23 History tablet,extended release sodium phosphates 19 gram-7 118 ml MI DAILY PRN Constipation 09/21/23 09/21/23 Unknown History gram/118 mL enema (Fleet Enema) tamsulosin 0.4 mg capsule 0.4 mg PO DAILY@17 better urine 09/21/23 09/21/23 09/20/23 History flow past prostate Allergies Allergy/AdvReac Type Severity Reaction Status Date / Time No Known Allergies Allergy Verified 09/21/23 08:44 PFSH Acute PFSH: Medical History (Updated 09/21/23 @ 10:00 by Amos Lopes MD) Noncompliance Basal cell carcinoma, face GERD (gastroesophageal reflux disease) Seborrheic keratoses Prostatitis, chronic Anxiety Chronic shortness of breath Pulmonary embolism Syncope Old inferior wall myocardial infarction Non-Hodgkin lymphoma Hypothyroidism ASHD (arteriosclerotic heart disease) Carotid stenosis, bilateral Ed syndrome Hyperlipidemia HTN (hypertension) Ischemic cardiomyopathy TIA (transient ischemic attack) Surgical History (Updated 08/27/23 @ 00:00 by LUIS Zavala) S/P carotid endarterectomy S/P PTCA (percutaneous transluminal coronary angioplasty) Family History Mother Cancer COLON Father CAD (coronary artery disease) Social History Smoking and tobacco/nicotine status: never used tobacco/nicotine Marital status: Single service: Yes branch: [employer] Vitals/I&O/Wt Last Vital Signs Temp 100.6 F H 09/21/23 08:26 Pulse 96 09/21/23 08:26 Resp 16 09/21/23 08:26 BP 145/101 09/21/23 08:26 Pulse Ox 96 09/21/23 08:26 Weight last 48 hrs Weight 210 lb Physical Exam Narrative: Blood pressure 145/101 heart rate 82 temperature 100.3 NIH score = 4 (secondary to NIH score = 4 secondary to left gaze preference with inability to look past the midline to the right it was undetermined if this was acute or chronic, obvious right lower facial weakness, and increased dysarthria. The patient's right upper and right lower extremity spasticity and paralysis was reported to be chronic. Glucose Accu-Chek 110.) The patient is alert and oriented to person. Patient answered both questions correctly and follows commands. Head normocephalic. Neck reveals no obvious spasticity. Cranial nerves II through XII revealed obvious right lower facial weakness with inability to fully protrude his tongue. Speech was dysarthric but understandable. Patient used correct sentences. Visual rodriguez appear to be full via confrontation. Patient had obvious left gaze preference with inability to look past the midline to the right. It was unclear if this was acute or chronic. Motor testing 5/5 in the left upper and left lower extremity and 0/5 in the right upper and right lower extremity with paralysis and spasticity. There was 1-2 beats of clonus in the right foot. Plantar responses flexor bilaterally. Sensory examination was intact to touch. There was no obvious extinction on double sensory stimulation. Throat revealed inability to protrude his tongue. Lungs revealed no obvious wheezing. Heart regular rhythm and rate. Extremities were negative for cyanosis. Data 09/21/23 08:23 09/21/23 09:43 A&P Assessment and plan (1) Left acute arterial ischemic stroke, MCA (middle cerebral artery): Impression: 1. Subacute left MCA distribution stroke 2. New subacute LEFT MCA territory infarct with diffuse edema involving the LEFT posterior frontal and parietal lobes extending into the LEFT anterior temporal lobe. Mild mass effect in the LEFT lateral ventricle. Mild LEFT RIGHT midline shift measuring 2-3 mm. Intracranial vascular calcification similar to previous. 3. Remote left MCA distribution stroke 4. High-grade stenosis LEFT proximal ICA with a tiny residual lumen. Stenosis measures approximately 80%. Tortuous LEFT ICA reported on CT angiogram performed August 2023 5. Cardial myopathy 6. Pulmonary nodule Plan: 1. Recommend repeat CT angiogram of the head and neck to assess for progression and left ICA stenosis and to evaluate for thrombosis to determine if patient is a candidate for thrombectomy 2. Recommend CT of the chest to further assess the pulmonary nodule 3. Recommend cardiac evaluation for cardiomyopathy 4. Elevate head of bed to 30 degrees as tolerated to minimize cerebral swelling 5. No hypotonic fluids to minimize cerebral swelling/edema 6. Increase aspirin to 325 mg p.o. every morning with food or suppository if patient unable to swallow 7. Increase Lipitor to 40 mg p.o. q. evening 8. Recommend occupational therapy, physical therapy and speech therapy consults 9. Neurochecks per NIH stroke protocol 10. Give [facility] stroke pamphlet (2) Carotid stenosis, left: (3) Cerebral edema: Consult Attestations Medical Necessity Statement: The patient was evaluated by neurology for code stroke 09/21/2023 emergency department room #16 Coding Level of Care Code 17475 Diagnoses Left acute arterial ischemic stroke, MCA (middle cerebral artery) I63.512 Carotid stenosis, left I65.22 Cerebral edema G93.6
--- NOTE | 2023-09-21 09:38 | CT_ITS ---
WS: [id number] CTA HEAD AND NECK TECHNIQUE: Contrast enhanced CTA of the head and neck with coronal and sagittal reformatted images an d maximum intensity projection (MIP) images. NASCET criteria utilized. CLINICAL INFORMATION: Stroke symptoms COMPARISON: CTA 08/24/2023 DLP: 509.[address] scans at [facility] use at least one of these dose optimization techniques: automated e xposure control; mA and/or kV adjustment per patient size (includes targeted exams where dose is matc hed to clinical indication); or iterative reconstruction. FINDINGS: Again seen is the subacute LEFT MCA territory infarct with mass effect on the LEFT lateral ventricle unchanged from earlier today. RIGHT: RIGHT common carotid artery is patent. Moderate atheromatous plaque RIGHT carotid bulb extendi ng into the ICA. RIGHT ICA is patent to the skull base. No significant RIGHT ICA stenosis. Cavernous carotid calcification. LEFT: LEFT common carotid artery is patent. Stenosis LEFT proximal ICA appears unchanged compared to previous with eccentric irregular atheromatous plaque and proximal ICA stenosis measuring approximate ly 70 to 80%. ICA remains patent to the skull base. Tortuous LEFT cervical ICA. Cavernous carotid grupo cification. INTRACRANIAL CTA: Normal vascularity to the KATIE and proximal MCA territories bilaterally. No proximal flow-limiting landon nosis. Decreased vascularity to the LEFT MCA territory posterior division in the area of infarct invo lving the second and third order branches. LEFT dominant vertebral artery. 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 Small amount of collateral flow distally. Basilar artery is patent. Persistent LEFT CHILD AND ADOLESCENT THERAPIST. Nor mal vascularity to the CHILD AND ADOLESCENT THERAPIST territory bilaterally. Fibrosis in the lung apices. IMPRESSION: 1. Subacute LEFT MCA territory infarct unchanged from earlier today. 2. Decreased vascularity to the area of ischemia in the LEFT MCA territory posterior division. LEFT proximal MCA vessels appear patent. 3. LEFT dominant vertebral artery. 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 4. Stable approximate 70 to 80% LEFT proximal ICA stenosis. 5. No significant RIGHT ICA stenosis. 6. Paranasal sinusitis.
[2023-09-21 09:46] LABS: Influenza A by IFA negative (Negative); Influenza B by IFA negative (Negative)
[2023-09-21 09:50] LABS: SARS Covid-2 Antigen Negative (Negative)
[2023-09-21 09:58] LABS: Protein Urine 1+ (Negative); Urine Appearance SL Hazy (CLEAR); Urine Color Dark Yellow (Yellow); pH Urine 6 (5-7)
[2023-09-21 09:59] LABS: Add Urine Culture? Yes; Add Urine Microscopic? YES; Bacteria Urine 2+ /hpf; Bilirubin Urine Neg (Negative); Blood Urine 2+ (Negative); Glucose Urine UA Norm (Normal); Ketones Urine 1+ (Negative); Leukocyte Esterase Urine 2+ (Negative); Nitrate Urine Negative (Negative); Urobilinogen Urine 1 mg/dL (Negative); WBC Urine >100 /hpf (0-5)
[2023-09-21 10:11] LABS: Alanine Aminotransferase 53 U/L (0-41); Albumin Level 3.2 g/dL (3.5-5.2); Alkaline Phosphatase 267 U/L (40-130); Aspartate Amino Transferase 48 U/L (0-40); Blood Urea Nitrogen 19 mg/dL (8-23); Calcium 8.9 mg/dL (8.5-10.5); Carbon Dioxide 26 mmol/L (22-29); Chloride 92 mmol/L (98-107); Creatinine Clr Calc Pharmacy 78.3904; Globulin 3.9 g/dL (1.3-4.6); Glucose 105 mg/dL (65-115); Osmolality Calculated 269 mOsm/kg (285-295); Sodium 128 mmol/L (136-145); Total Bilirubin 1.1 mg/dL (0.15-1.2); Total Protein 7.1 g/dL (6.6-8.7)
[2023-09-21] MEDS: iohexol 350 mg/mL 500 mL Btl (per mL) IV (11:05)
--- NOTE | 2023-09-21 12:57 | ECG_ITS ---
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 Measurements Intervals [place] Rate: 129 P: 27 [place]: 209 QRS: 222 QRSD: 169 T: 10 QT: 360 QTc: 529 Interpretive Statements SINUS TACHYCARDIA with frequent supraventricular ectopics INDETERMINATE AXIS RIGHT BUNDLE BRANCH BLOCK [120+ ms QRS DURATION, UPRIGHT V1, 40+ ms S IN I/aVL/V4/V5/V6] MARKED ST DEPRESSION, CONSIDER SUBENDOCARDIAL INJURY [0.2+ mV ST DEPRESSION] ACUTE DE Compared to ECG 09/21/2023 08:27:58 Sinus rhythm no longer present Ventricular premature complex(es) no longer present Left anterior fascicular block no longer present ST (T wave) deviation still present Electronically Signed On 09-21-2023 18:53:19 CDT by Lyle Valdes M.D. [id number] f
[2023-09-21] MEDS: aspirin 300 mg Supp PR (13:36)
[2023-09-21] MEDS: dilTIAZem 5 mg/mL SDV 5 mL 10 MG IVP (13:36)
--- NOTE | 2023-09-21 14:06 | PM.HP ---
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 Last known well was on 09/19 night. In the ER patient had CT head along with CTA head and neck. CT head showed new subacute left MCA territory infarct with diffuse edema involving the left posterior frontal and parietal lobe extending into the left. He was not deemed candidate for tenecteplase or thrombectomy. Review of Systems General: Reports: ROS unobtainable due to mental status Medications/Allergies Home Medications Medication Instructions Recorded Confirmed Last Taken Type acetaminophen 325 mg tablet 650 mg PO Q4H PRN general 09/21/23 09/21/23 Unknown History discomfort alprazolam 0.25 mg tablet 0.25 mg PO BID PRN Anxiety 09/21/23 09/21/23 Unknown History aspirin 81 mg tablet,delayed 81 mg PO DAILY@09/21/23 09/21/23 09/21/23 History release atorvastatin 20 mg tablet 20 mg PO DAILY@09/21/23 09/21/23 09/20/23 History bisacodyl 10 mg rectal suppository 10 mg OR DAILY PRN Constipation 09/21/23 09/21/23 Unknown History (Dulcolax (bisacodyl)) cyanocobalamin (vitamin B-12) 1,000 mcg PO DAILY@09/21/23 09/21/23 09/21/23 History 1,000 mcg capsule furosemide 40 mg tablet 40 mg PO DAILY@09/21/23 09/21/23 09/21/23 History levothyroxine 175 mcg tablet 175 mcg PO DAILY@09/21/23 09/21/23 09/21/23 History losartan 25 mg tablet 25 mg PO DAILY@09/21/23 09/21/23 09/21/23 History magnesium hydroxide 400 mg/5 mL 30 ml PO DAILY PRN Constipation 09/21/23 09/21/23 Unknown History oral suspension (Milk of Magnesia) metoprolol tartrate 25 mg tablet 25 mg PO BID@0818 09/21/23 09/21/23 09/21/23 History potassium chloride 20 mEq 20 meq PO DAILY@07 09/21/23 09/21/23 09/21/23 History tablet,extended release sodium phosphates 19 gram-7 118 ml OR DAILY PRN Constipation 09/21/23 09/21/23 Unknown History gram/118 mL enema (Fleet Enema) tamsulosin 0.4 mg capsule 0.4 mg PO DAILY@17 better urine 09/21/23 09/21/23 09/20/23 History flow past prostate Allergies Allergy/AdvReac Type Severity Reaction Status Date / Time No Known Allergies Allergy Verified 09/21/23 08:44 PFSH Acute PFSH: Medical History (Updated 09/21/23 @ 14:30 by Dariusz Velásquez MD) Noncompliance Basal cell carcinoma, face GERD (gastroesophageal reflux disease) Seborrheic keratoses Prostatitis, chronic Anxiety Chronic shortness of breath Pulmonary embolism Syncope Old inferior wall myocardial infarction Non-Hodgkin lymphoma Hypothyroidism ASHD (arteriosclerotic heart disease) Carotid stenosis, bilateral Ed syndrome Hyperlipidemia HTN (hypertension) Ischemic cardiomyopathy TIA (transient ischemic attack) Surgical History (Updated 08/27/23 @ 00:00 by LUIS Zavala) S/P carotid endarterectomy S/P PTCA (percutaneous transluminal coronary angioplasty) Family History Mother Cancer COLON Father CAD (coronary artery disease) Social History Smoking and tobacco/nicotine status: never used tobacco/nicotine Marital status: Single service: Yes branch: [employer] Vitals/I&O/Wt Last Vital Signs Temp 100.6 F H 09/21/23 08:26 Pulse 129 H 09/21/23 12:52 Resp 16 09/21/23 08:26 BP 109/79 09/21/23 12:52 Pulse Ox 97 09/21/23 12:52 O2 Del Method Room Air 09/21/23 12:52 O2 Flow Rate 2 09/21/23 09:00 Weight last 48 hrs Weight 95.254 kg Data 09/21/23 08:23 09/21/23 09:43 Micro: Microbiology 09/21/23 13:52 Blood Culture - Preliminary Blood SPECIMEN COLLECTED 09/21/23 13:47 Blood Culture - Preliminary Blood SPECIMEN COLLECTED A&P Assessment and plan (1) Left acute arterial ischemic stroke, MCA (middle cerebral artery): Seen on CT head and CTA head and neck done today. Recent CTA showed new severe left ICA stenosis. Patient was to follow-up as an outpatient for possible carotid endarterectomy. Not a candidate for thrombectomy as per neurology. Not a candidate for tenecteplase. PT/OT. Permissible hypertension. Hold off on antihypertensives for now. Appreciate recent echocardiogram within the last 1 month. Speech therapy. Advance diet accordingly. For now start on rectal aspirin. Statin when possible. (2) Carotid stenosis, left: (3) Urinary tract infection: Complicated. Chronic Flores. Appreciate UA. Replace Flores catheter. Follow-up urine culture. Get blood culture. Start on IV ceftriaxone 1 g daily for now. Will de-escalate or change antibiotics as per culture results. Cannot rule out mild worsening of encephalopathy in setting of UTI along with stroke. (4) Hyponatremia: (5) Encephalopathy: Combination of acute stroke, encephalopathy from UTI along with hyponatremia. Aspiration precaution. Speech therapy. Currently NPO. Seizure precaution. Monitor daily. Surgery as needed. (6) Severe hypothyroidism: Continue home dose of levothyroxine for now. If unable to take orally will start on IV. Recent discharge with severe hypothyroidism with TSH of 47. Repeat thyroid panel. (7) Ischemic cardiomyopathy: (8) Acute congestive heart failure with left ventricular diastolic dysfunction: He is well compensated. Last known EF 40 to 45% with dilated LA, mild MR, mild to moderate AI (9) S/P PTCA (percutaneous transluminal coronary angioplasty): (10) History of CVA (cerebrovascular accident): (11) Carotid stenosis, bilateral: (12) S/P carotid endarterectomy: Plan Hyponatremia: Sodium of 128. Baseline sodium normal. Most likely in setting of dehydration in setting of home dose of Lasix. Normal saline at 75 cc/h. Monitor BMP daily. CODE STATUS: Son at bedside. Daughter will be the DPOA. Discussed in detail with the son. Per the son patient in past had requested for full code. Would want to continue for the same for now. Discussed that if his mentation does not improve and his oral intake does not improve he might end up needing a feeding tube. Son will discuss further with patient's DPOA/daughter in detail. Full code NPO. Speech therapy. Protonix OPD prophylaxis Heparin 5000 every 12 hourly for DVT prophylaxis. Attestations Medical Necessity Statement*: Admission for more than 2 midnights for management of enteropathy in setting of new left MCA infarct, complicated UTI, severe hypothyroidism Diagnoses Left acute arterial ischemic stroke, MCA (middle cerebral artery) I63.512 Carotid stenosis, left I65.22 Urinary tract infection N39.0 Hyponatremia E87.1 Encephalopathy G93.40 Severe hypothyroidism E03.9 Ischemic cardiomyopathy I25.5 Acute congestive heart failure with left ventricular diastolic dysfunction I50.31 S/P PTCA (percutaneous transluminal coronary angioplasty) Z98.61 History of CVA (cerebrovascular accident) Z86.73 Carotid stenosis, bilateral I65.23 S/P carotid endarterectomy Z98.890
[2023-09-21] MEDS: pantoprazole 40 mg SDV IVP (14:20)
[2023-09-21] MEDS: cefTRIAXone 1,000 MG in sodium chloride 0.9% (plus) 50 ML 100 MG IV (14:23)
[2023-09-21] MEDS: heparin 5,000 unit/mL INJ 1 mL 5000 UNIT SUBCUT (14:24)
[2023-09-21 14:40] LABS: Procalcitonin 0.09 ng/mL (0-0.5)
[2023-09-21] MEDS: metoprolol tartrate 25 mg Tablet PO (15:10)
[2023-09-21 15:13] LABS: Vitamin B12 992 pg/mL (232-1245)
[2023-09-21] MEDS: sodium chlor 0.9% + KCl 20 mEq 20 MEQ/1,000 ML BAG 50 MEQ IV (15:34)
[2023-09-21] MEDS: tamsulosin 0.4 mg Capsule 0.400000000000000022 MG PO (17:54)
[2023-09-21] MEDS: atorvastatin 40 mg Tablet PO (17:54)
--- NOTE | 2023-09-21 18:06 | ECG_ITS ---
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 Measurements Intervals [place] Rate: 126 P: 0 [place]: 219 QRS: 219 QRSD: 164 T: 59 QT: 364 QTc: 529 Interpretive Statements SINUS TACHYCARDIA WITH FIRST DEGREE AV BLOCK INDETERMINATE AXIS RIGHT BUNDLE BRANCH BLOCK [120+ ms QRS DURATION, UPRIGHT V1, 40+ ms S IN I/aVL/V4/V5/V6] MARKED ST DEPRESSION, CONSIDER SUBENDOCARDIAL INJURY [0.2+ mV ST DEPRESSION] INTERPRETATION BASED ON A DEFAULT AGE OF 40 YEARS Compared to ECG 09/21/2023 11:39:02 First degree AV block now present ST (T wave) deviation still present Electronically Signed On 09-22-2023 21:45:12 CDT by Man Conde M.D. [id number]
[2023-09-21] MEDS: dilTIAZem 100 MG in sodium chloride 0.9% (add-van) 100 ML IV (18:39)
--- NOTE | 2023-09-21 19:08 | ECG_ITS ---
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 Measurements Intervals [place] Rate: 70 P: 37 [place]: 198 QRS: -17 QRSD: 174 T: 134 QT: 433 QTc: 467 Interpretive Statements SINUS RHYTHM POSSIBLE LEFT ATRIAL ENLARGEMENT [-0.1mV P-WAVE IN V1/V2] INDETERMINATE AXIS RIGHT BUNDLE BRANCH BLOCK [120+ ms QRS DURATION, UPRIGHT V1, 40+ ms S IN I/aVL/V4/V5/V6] MODERATE T-WAVE ABNORMALITY, CONSIDER LATERAL ISCHEMIA [-0.1+ mV T-WAVE IN I/aVL/V5/V6] Compared to ECG 09/21/2023 18:09:31 T-wave abnormality now present Possible ischemia now present Sinus tachycardia no longer present First degree AV block no longer present ST (T wave) deviation no longer present Electronically Signed On 09-22-2023 21:44:52 CDT by Man Conde M.D. [id number]
[2023-09-22] VITALS (10 sets, daily range): BP systolic 114–158; BP diastolic 50–73; PULSE 63–87; RESP 18–24; TEMP 36.9–37.8; O2SAT 94–99
[2023-09-22] MEDS: heparin 5,000 unit/mL INJ 1 mL 5000 UNIT SUBCUT ×2 (02:43→15:11)
[2023-09-22 03:29] LABS: Basophils % 0.2 %; Eosinophils % 0.3 %; Hematocrit 36.6 % (37-53); Lymphocytes # 0.7 10^3/uL (0.8-4.8); Lymphocytes % 5.5 %; Mean Corpuscular HGB Conc 32.8 g/dL (30-55); Mean Corpuscular Hemoglobin 31.2 pg (27-33); Mean Corpuscular Volume 95.1 fl (82-101); Mean Platelet Volume 9.9 fL (7.4-10.4); Monocytes # 1.3 10^3/uL (0.2-0.9); Neutrophils # 10.44 10^3/uL (1.8-7.7); Neutrophils % 83.4 %; Nucleated Red Blood Cells % 0 %; Platelet Count 322 10^3/cmm (157-399); Red Blood Count 3.85 10^6/uL (3.85-5.65); Red Cell Distribution Width 14.7 % (12.1-15.1); White Blood Count 12.53 10^3/uL (3.29-11.43)
[2023-09-22 03:59] LABS: Alanine Aminotransferase 43 U/L (0-41); Albumin Level 2.8 g/dL (3.5-5.2); Alkaline Phosphatase 220 U/L (40-130); Anion Gap 13.5 (5-19); Aspartate Amino Transferase 47 U/L (0-40); Blood Urea Nitrogen 23 mg/dL (8-23); Calcium 8.2 mg/dL (8.5-10.5); Carbon Dioxide 25 mmol/L (22-29); Chloride 100 mmol/L (98-107); Creatinine Clr Calc Pharmacy 70.5513; Globulin 3.5 g/dL (1.3-4.6); Glucose 97 mg/dL (65-115); Osmolality Calculated 282 mOsm/kg (285-295); Phosphorus 2.9 mg/dL (2.5-4.5); Potassium 4.5 mmol/L (3.5-5.1); Sodium 134 mmol/L (136-145); Total Protein 6.3 g/dL (6.6-8.7)
[2023-09-22] MEDS: levothyroxine 175 mcg Tablet PO (05:11)
[2023-09-22] MEDS: metoprolol tartrate 25 mg Tablet PO ×2 (09:09→18:18)
[2023-09-22] MEDS: aspirin 300 mg Supp PR (09:09)
--- NOTE | 2023-09-22 09:15 | MRR_ITS ---
PROCEDURE INFORMATION: Exam: MR Head Without Contrast Exam date and time: 09/22/2023 5:49 PM Age: 78 years old Clinical indication: Altered mental status/memory loss; Additional info: Stroke TECHNIQUE: Imaging protocol: Magnetic resonance imaging of the head without contrast. COMPARISON: CT angio headneck* [id number] 09/21/2023 10:52 AM FINDINGS: Brain: Large acute left MCA territory infarct with hemorrhagic transformation and trace subarachnoid hemorrhage. There are multiple subcentimeter acute infarcts in the left cerebral hemisphere as well as a single subcentimeter infarct in the left cerebellar hemisphere. No evidence of acute infarct on the right. Chronic right cerebellar hemispheric infarct noted. Minimal 1-2 mm rightward midline shift. Background of periventricular and deep white matter T2 FLAIR hyperintensities compatible with sequela of moderate chronic microvascular ischemic changes. Cerebral ventricles: Suspected dilatation of the lateral ventricles. Partial effacement of the left lateral ventricle/atrium. Bones/joints: Sphenoid and maxillary sinus fluid levels with mucosal thickening compatible with sinusitis. Partial effacement of the anterior ethmoid air cells. Paranasal sinuses: The visualized paranasal sinuses are well aerated. Mastoid air cells: The mastoids and middle ears are grossly clear without evidence of effusion. Orbital cavities: The visualized orbits are unremarkable. Soft tissues: Grossly unremarkable. MR/MR head wo con* [id number] IMPRESSION: 1. Large acute left MCA territory infarct with hemorrhagic transformation and trace subarachnoid hemorrhage. There is mild-moderate mass effect with partial effacement of the left atrium/trigone. Minimal 1-2 mm rightward midline shift. 2. Multiple subcentimeter acute infarcts in the left cerebral hemisphere as well as a single subcentimeter infarct in the left cerebellar hemisphere. 3. Paranasal sinus disease. The findings were verbally communicated by telephone with Dr. CASH at 7:01 PM CDT on 09/22/2023.
--- NOTE | 2023-09-22 09:16 | US_ITS ---
WS: [id number] RIGHT UPPER QUADRANT ULTRASOUND HISTORY: transaminitis COMPARISON: None available. Liver: 16.4 cm in length. Liver is poorly visualized in its entirety. No mass or abnormality identifi ed. Portal Vein: Normal hepatopetal flow with monophasic waveform. Gallbladder: Normally distended gallbladder with no stones or wall thickening. CBD: 0.6 cm Pancreas: Not visualized. Right kidney: 5.0 cm in length. Severe atrophy of the kidney. No hydronephrosis. No prior studies to include include the kidneys. If this is the kidney it is severely atrophied. Potentially this may not be the kidney. Aorta and IVC: Unremarkable abdominal aorta and IVC. No ascites. IMPRESSION: 1. Negative gallbladder. 2. Study is limited by body habitus. 3. Indeterminate evaluation of the RIGHT kidney. There is a soft tissue mass identified in the renal fossa which may be a severely atrophied kidney. No prior studies included the kidneys. If further ev aluation of the kidneys is necessary noncontrast CT would be sufficient to evaluate for size and pres ence.
[2023-09-22] MEDS: acetaminophen 325 mg Tablet 650 MG PO (09:43)
--- NOTE | 2023-09-22 10:01 | PC.CHAP ---
Pastoral Care Encounter/Spiritual Assessment Type of Contact [] Declined shoe dyer visit [] Patient/Family/Request visit [] Outpatient visit [] Follow-up visit [] Physician referral [] Code/Alert [] Routine visit [] Staff referral [] Actively dying [] Patient sleeping [] Family support [] [] Out of room [] Palliative care [] [x] Receiving care in room [] Pre-surgical visit [] Trauma [] Long length of stay [] ICU visit [] Other: Relational/Emotional Strength [] Patient feels connected with others/family/visitors/staff [] Distress [] Loneliness/isolation [] Abandonment Spirituality of Patient [] Person of Kayli [] Attends Sabianist of their Kayli [] Believes in Prayer [] Reads Bible or Church materials [] There are Spiritual issues to be addressed Health Promotion Specialist Interventions [] Prayer [] Active listening [] Non-anxious presence [] Spiritual/emotional support [] Crisis/trauma care [] Spiritual counseling [] Bereavement support [] Provided bereavement packet [] Provided Bible/devotional materials [] Provided toy/stuffed animal, coloring book to patient or family member [] Provided Communion [] Anointing/Hope [] Salvation [] Completed spiritual assessment [] Other: Impact on Illness or Injury [] Angry [] Fearful [] Anxious [] Often cries [] Exhaustion [] Unable to work [] Unable to attend mandaen [] Unable to walk/stand [] Unable to read [] Unable to drive [] Unable to eat/drink [] Unable to sleep [] Unable to be with family [] Patient intubated [] Other: Summary Time spent with patient
[2023-09-22] MEDS: sodium chlor 0.9% + KCl 20 mEq 20 MEQ/1,000 ML BAG 50 MEQ IV (10:34)
[2023-09-22] MEDS: cefTRIAXone 1,000 MG in sodium chloride 0.9% (plus) 50 ML 100 MG IV (13:13)
--- NOTE | 2023-09-22 13:30 | PC.OT ---
OT EVALUATION ATTEMPTED. PATIENT UNABLE TO MAINTAIN ALERTNESS FOR EVALUATION. WILL ATTEMPT AGAIN TOMORROW.
--- NOTE | 2023-09-22 13:50 | P.PN_ITS ---
Subjective 2 Subjective: No acute events overnight. Patient slightly more awake today. Was able to have his medications through pudding earlier in the morning. Seen with daughter at bedside. Has remained hemodynamically stable. Tmax of 100.6 overnight and currently 100.1 today morning. Remains on room air. Vitals/I&O/Wt Last Vital Signs Temp 99.3 F 09/22/23 11:59 Pulse 63 09/22/23 11:59 Resp 18 09/22/23 11:59 BP 128/60 09/22/23 11:59 Pulse Ox 96 09/22/23 11:59 O2 Del Method Room Air 09/22/23 11:59 O2 Flow Rate 2 09/21/23 09:00 09/21/23 09/22/23 09/22/23 22:59 06:59 14:59 Intake Total 10.250 / 10.250 1000 / 1000 Output Total 650 / 650 Balance 10.250 / 10.250 350 / 350 Weight last 48 hrs Weight 95.254 kg Physical Exam 2 Narrative: General: No acute distress, alert and oriented to self, not following directions, responds to verbal stimulus, hard of hearing HEENT: PERRLA, pupils bilaterally equal and reactive Chest: Normal vesicular breath sounds, no added sounds, equal good air entry bilaterally CVS: S1-S2 regular, no murmurs, no tachycardia, no gallops, no rubs Abdomen: Soft, nontender, no organomegaly, bowel sounds present Neuro: Mild facial droop on the right slurred speech, occasional clonus of the right foot, plantars bilaterally downgoing, Power: 5/5 in left upper and lower extremity, 0/5 on the right side Data 09/22/23 03:07 09/22/23 03:07 Micro: Microbiology 09/21/23 08:32 Urine Culture - Preliminary Urine,Clean Catch 09/21/23 13:52 Blood Culture - Preliminary Blood SPECIMEN COLLECTED 09/21/23 13:47 Blood Culture - Preliminary Blood SPECIMEN COLLECTED A&P Assessment and plan (1) Left acute arterial ischemic stroke, MCA (middle cerebral artery): Seen on CT head and CTA head and neck done today. Recent CTA showed new severe left ICA stenosis. Patient was to follow-up as an outpatient for possible carotid endarterectomy. Not a candidate for thrombectomy as per neurology. Not a candidate for tenecteplase. Follow-up with PT/OT. Goal blood pressures less than 140/90 mmHg now. Will restart antihypertensives accordingly. Heart rate better controlled. Appreciate recent echocardiogram within the last 1 month. Speech therapy. Advance diet accordingly. Patient able to take oral diet now. Switch to oral aspirin. Continue statin. Plan for MRI brain as per neurology recommendations today. (2) Carotid stenosis, left: (3) Urinary tract infection: Complicated. Chronic Flores. Replaced in the ER. Follow-up urine culture, blood culture. Continue with IV ceftriaxone 1 g daily for now. Will de-escalate or change antibiotics as per culture results. Cannot rule out mild worsening of encephalopathy in setting of UTI along with stroke. Patient does have mild transaminitis. Cannot rule out gallbladder pathology versus cholecystitis versus acalculous cholecystitis for the reason of fever along with possible of aspiration pneumonia though that is unlikely as patient remains saturating well on room air versus central fevers given the new stroke. Plan for gallbladder ultrasound. Getting MRI head as above. (4) Hyponatremia: Resolving. Up to 134 today. (5) Encephalopathy: Combination of acute stroke, encephalopathy from UTI along with hyponatremia. Aspiration precaution. Speech therapy. Currently NPO. Seizure precaution. Monitor daily. Surgery as needed. (6) Severe hypothyroidism: Continue home dose of levothyroxine for now. If unable to take orally will start on IV. Recent discharge with severe hypothyroidism with TSH of 47. Repeat thyroid panel shows improvement in TSH. (7) Ischemic cardiomyopathy: (8) Acute congestive heart failure with left ventricular diastolic dysfunction: He is well compensated. Last known EF 40 to 45% with dilated LA, mild MR, mild to moderate AI (9) S/P PTCA (percutaneous transluminal coronary angioplasty): (10) History of CVA (cerebrovascular accident): (11) Carotid stenosis, bilateral: (12) S/P carotid endarterectomy: (13) Goals of care, counseling/discussion: Plan CODE STATUS: Discussed CODE STATUS again in detail with patient's daughter/DPOA at bedside. We discussed about quality of life versus quantity of life. Daughter states her father would have never wanted to live like a vegetable and unfortunately with his baseline now if he is to have cardiac arrest she is concerned that he would not get back to his baseline health at current and she had discuss further with her brothers detail and they had agreed upon DNR/DNI though her agreeable for aggressive treatment right now. CODE STATUS changed. Full code Advance as per speech therapy. Protonix for PUD prophylaxis Heparin 5000 every 12 hourly for DVT prophylaxis. Attestations 2 Medical Necessity Statement*: Requires further hospitalization for management of encephalopathy in setting of significant stroke, infectious source including UTI, hyponatremia likely discharge planning discharge Diagnoses Left acute arterial ischemic stroke, MCA (middle cerebral artery) I63.512 Carotid stenosis, left I65.22 Urinary tract infection N39.0 Hyponatremia E87.1 Encephalopathy G93.40 Severe hypothyroidism E03.9 Ischemic cardiomyopathy I25.5 Acute congestive heart failure with left ventricular diastolic dysfunction I50.31 S/P PTCA (percutaneous transluminal coronary angioplasty) Z98.61 History of CVA (cerebrovascular accident) Z86.73 Carotid stenosis, bilateral I65.23 S/P carotid endarterectomy Z98.890 Goals of care, counseling/discussion Z71.89
[2023-09-22] MEDS: pantoprazole 40 mg SDV IVP (15:11)
[2023-09-22] MEDS: tamsulosin 0.4 mg Capsule 0.400000000000000022 MG PO (18:18)
[2023-09-22] MEDS: atorvastatin 40 mg Tablet PO (18:18)
--- NOTE | 2023-09-22 19:06 | PC.NURSE ---
The bed that this patient is in is not weighing the patient correctly. This bed scale read 138 after being zeroed out when he was in MRI.
[2023-09-23] VITALS (7 sets, daily range): BP systolic 136–175; BP diastolic 66–81; PULSE 77–136; RESP 19–21; TEMP 36.6–37.2; O2SAT 96–98
[2023-09-23] MEDS: heparin 5,000 unit/mL INJ 1 mL 5000 UNIT SUBCUT (02:52)
[2023-09-23] MEDS: levothyroxine 175 mcg Tablet PO (05:41)
[2023-09-23] MEDS: sodium chlor 0.9% + KCl 20 mEq 20 MEQ/1,000 ML BAG 50 MEQ IV (06:29)
[2023-09-23] MEDS: acetaminophen 325 mg Tablet 650 MG PO (09:03)
[2023-09-23] MEDS: metoprolol tartrate 25 mg Tablet PO ×2 (09:03→17:47)
[2023-09-23 09:41] LABS: Basophils % 0.3 %; Eosinophils # 0.1 10^3/uL (0.0-0.8); Lymphocytes # 0.6 10^3/uL (0.8-4.8); Lymphocytes % 5.7 %; Mean Corpuscular Hemoglobin 31.5 pg (27-33); Mean Corpuscular Volume 98.3 fl (82-101); Mean Platelet Volume 9.8 fL (7.4-10.4); Monocytes % 10.2 %; Neutrophils # 8.08 10^3/uL (1.8-7.7); Nucleated Red Blood Cells % 0 %; Platelet Count 271 10^3/cmm (157-399); Red Blood Count 3.56 10^6/uL (3.85-5.65); Red Cell Distribution Width 14.4 % (12.1-15.1); White Blood Count 9.86 10^3/uL (3.29-11.43)
--- NOTE | 2023-09-23 09:44 | CTR_ITS ---
PROCEDURE INFORMATION: Exam: CT Head Without Contrast Exam date and time: 09/23/2023 9:58 AM Age: 78 years old Clinical indication: Weakness, extremity; Right; Patient HX: HX of stroke; Additional info: Subarachniod hemorrage TECHNIQUE: Imaging protocol: Computed tomography of the head without contrast. Radiation optimization: All CT scans at this facility use at least one of these dose optimization techniques: automated exposure control; mA and/or kV adjustment per patient size (includes targeted exams where dose is matched to clinical indication); or iterative reconstruction. COMPARISON: MR head wo con* [id number] 09/22/2023 5:49 PM RADIATION DOSE METRICS: Total DLP (mGy-cm): 1176.33 FINDINGS: Brain: Again noted is evolving acute infarct involving the left posterior frontal and temporal lobes and parietal lobe with associated mass effect, petechial conversion with associated mass effect and 4 mm of rightward midline shift, not significantly changed from the prior study. A thin left frontotemporal hypodense subdural collection is also again noted unchanged. Periventricular white matter hypodensity likely represents chronic microvascular ischemic change. Cerebral ventricles: There is atrophic dilatation of the right lateral ventricle and relative compression of the left lateral ventricle. Paranasal sinuses: Mucosal thickening and opacities noted within the visualized paranasal sinuses. Mastoid air cells: Fluid opacifies scattered mastoid air cells on the left. There is opacification of the left middle ear cavity. Bones/joints: Unremarkable. No acute fracture. Soft tissues: Unremarkable. CT/CT head wo con* [id number] IMPRESSION: Evolving acute infarct in the distribution of left middle cerebral artery, associated mass effect and rightward midline shift, unchanged from the prior study. Unchanged thin left frontotemporal subdural collection. Left otitis media with mastoid air cell involvement.
--- NOTE | 2023-09-23 09:45 | PC.NURSE ---
Provider ordered a STAT head CT for subarachnoid hemorrhage. Order entered.
[2023-09-23 10:04] LABS: Alanine Aminotransferase 32 U/L (0-41); Albumin Level 2.6 g/dL (3.5-5.2); Alkaline Phosphatase 189 U/L (40-130); Anion Gap 13.3 (5-19); Aspartate Amino Transferase 38 U/L (0-40); Blood Urea Nitrogen 23 mg/dL (8-23); Calcium 7.9 mg/dL (8.5-10.5); Carbon Dioxide 21 mmol/L (22-29); Chloride 101 mmol/L (98-107); Creatinine Clr Calc Pharmacy 88.1892; Globulin 3.6 g/dL (1.3-4.6); Glucose 92 mg/dL (65-115); Osmolality Calculated 275 mOsm/kg (285-295); Potassium 4.3 mmol/L (3.5-5.1); Sodium 131 mmol/L (136-145); Total Bilirubin 0.8 mg/dL (0.15-1.2); Total Protein 6.2 g/dL (6.6-8.7)
[2023-09-23] MEDS: meropenem 1,000 MG in sodium chloride 0.9% (plus) 50 ML 100 MG IV ×2 (10:16→17:48)
[2023-09-23] MEDS: pantoprazole 40 mg SDV IVP (14:54)
--- NOTE | 2023-09-23 15:35 | PC.OT ---
OT EVAL ATTEMPTED ABOUT 1500; PATIENT UNABLE TO BE AROUSED; WILL ATTEMPT AGAIN TOMORROW
[2023-09-23] MEDS: nicotine 21 mg Patch 1 PATCH TRANSDERMA (15:41)
--- NOTE | 2023-09-23 16:24 | P.PN_ITS ---
Subjective 2 Subjective: No acute vents overnight. On the morning examination patient laying comfortably in bed. Wakes up to verbal stimulus. On waking up speech is clearer than yesterday. Awake and alert to self, being in the hospital. Asking to be straightened up in the bed. Denies any pain. Has remained hemodynamically stable and afebrile. Vitals/I&O/Wt Last Vital Signs Temp 97.8 F 09/23/23 16:00 Pulse 77 09/23/23 16:00 Resp 19 H 09/23/23 16:00 BP 175/69 09/23/23 16:00 Pulse Ox 98 09/23/23 16:00 O2 Del Method Room Air 09/23/23 16:00 O2 Flow Rate 2 09/21/23 09:00 09/23/23 09/23/23 09/23/23 06:59 14:59 22:59 Intake Total 995.833 / 2045.833 50 / 50 Output Total 850 / 850 Balance 995.833 / 1395.833 -800 / -800 Physical Exam 2 Narrative: General: No acute distress, alert and oriented to self, being in the hospital, following some directions, responds to verbal stimulus, hard of hearing HEENT: PERRLA, pupils bilaterally equal and reactive Chest: Normal vesicular breath sounds, no added sounds, equal good air entry bilaterally CVS: S1-S2 regular, no murmurs, no tachycardia, no gallops, no rubs Abdomen: Soft, nontender, no organomegaly, bowel sounds present Neuro: Mild facial droop on the right slurred speech, occasional clonus of the right foot, plantars bilaterally downgoing, Power: 5/5 in left upper and lower extremity, 0/5 on the right side Data 09/23/23 09:29 09/23/23 09:29 Micro: Microbiology 09/21/23 08:32 Urine Culture - Final Urine,Clean Catch Pseudomonas aeruginosa 09/21/23 13:52 Blood Culture - Preliminary Blood NEGATIVE TO DATE 09/21/23 13:47 Blood Culture - Preliminary Blood NEGATIVE TO DATE A&P Assessment and plan (1) Left acute arterial ischemic stroke, MCA (middle cerebral artery): Seen on CT head and CTA head and neck done today. Recent CTA showed new severe left ICA stenosis. Patient was to follow-up as an outpatient for possible carotid endarterectomy. Not a candidate for thrombectomy as per neurology. Not a candidate for tenecteplase. Follow-up with PT/OT. Goal blood pressures less than 140/90 mmHg now. Will restart antihypertensives accordingly. Heart rate better controlled. Appreciate recent echocardiogram within the last 1 month. Speech therapy. Advance diet accordingly. Patient able to take oral diet now. Switch to oral aspirin. Continue statin. Plan for MRI brain as per neurology recommendations today. (2) Carotid stenosis, left: (3) Urinary tract infection: Complicated. Chronic Flores. Replaced in the ER. Follow-up urine culture, blood culture. Continue with IV ceftriaxone 1 g daily for now. Will de-escalate or change antibiotics as per culture results. Cannot rule out mild worsening of encephalopathy in setting of UTI along with stroke. Patient does have mild transaminitis. Cannot rule out gallbladder pathology versus cholecystitis versus acalculous cholecystitis for the reason of fever along with possible of aspiration pneumonia though that is unlikely as patient remains saturating well on room air versus central fevers given the new stroke. Plan for gallbladder ultrasound. Getting MRI head as above. (4) Hyponatremia: Resolving. Up to 134 today. (5) Encephalopathy: Combination of acute stroke, encephalopathy from UTI along with hyponatremia. Aspiration precaution. Speech therapy. Currently NPO. Seizure precaution. Monitor daily. Surgery as needed. (6) Severe hypothyroidism: Continue home dose of levothyroxine for now. If unable to take orally will start on IV. Recent discharge with severe hypothyroidism with TSH of 47. Repeat thyroid panel shows improvement in TSH. (7) Ischemic cardiomyopathy: (8) Acute congestive heart failure with left ventricular diastolic dysfunction: He is well compensated. Last known EF 40 to 45% with dilated LA, mild MR, mild to moderate AI (9) S/P PTCA (percutaneous transluminal coronary angioplasty): (10) History of CVA (cerebrovascular accident): (11) Carotid stenosis, bilateral: (12) S/P carotid endarterectomy: (13) Goals of care, counseling/discussion: (14) Intracranial hemorrhage: (15) Subarachnoid hemorrhage: Plan CODE STATUS: Discussed CODE STATUS again in detail with patient's daughter/DPOA at bedside. We discussed about quality of life versus quantity of life. Daughter states her father would have never wanted to live like a vegetable and unfortunately with his baseline now if he is to have cardiac arrest she is concerned that he would not get back to his baseline health at current and she had discuss further with her brothers detail and they had agreed upon DNR/DNI though her agreeable for aggressive treatment right now. CODE STATUS changed. Plan for the day: MRI shows hemorrhagic conversion of the large acute left MCA stroke with trace subarachnoid hemorrhage and mild to moderate mass effect with minimal rightward midline shift. Care discussed in detail with Dr. Lopes from neurology. Patient seems to be stable clinically. Hold off on aspirin, Plavix or heparin prophylaxis. Plan will be to repeat CT head today and then in few days to monitor for increasing hemorrhage. Continue with physical therapy. Urine culture growing Pseudomonas. Change antibiotics to IV meropenem. Goal blood pressure less than 140/90 mmHg. Will restart losartan today. Care discussed in detail with patient's daughter at bedside. We discussed that unfortunately he does have hemorrhagic conversion which is not a good sign it would be important for us to monitor for worsening or increase in the hemorrhage. Discussed the treatment option of possible transfer to a higher center for neurosurgical intervention though also discussed that patient might not be a good candidate to undergo any invasive procedures given his age, medical comorbidities and significant stroke. She is agreeable for monitoring and repeat CT heads. DNR/DNI Advance as per speech therapy. Protonix for PUD prophylaxis SCDs for DVT prophylaxis. Attestations 2 Medical Necessity Statement*: Requires further hospitalization for post left MCA stroke care, hemorrhagic conversion with mild midline shift, Pseudomonas UTI leading to acute metabolic encephalopathy Diagnoses Left acute arterial ischemic stroke, MCA (middle cerebral artery) I63.512 Carotid stenosis, left I65.22 Urinary tract infection N39.0 Hyponatremia E87.1 Encephalopathy G93.40 Severe hypothyroidism E03.9 Ischemic cardiomyopathy I25.5 Acute congestive heart failure with left ventricular diastolic dysfunction I50.31 S/P PTCA (percutaneous transluminal coronary angioplasty) Z98.61 History of CVA (cerebrovascular accident) Z86.73 Carotid stenosis, bilateral I65.23 S/P carotid endarterectomy Z98.890 Goals of care, counseling/discussion Z71.89 Intracranial hemorrhage I62.9 Subarachnoid hemorrhage I60.9
[2023-09-23] MEDS: losartan 50 mg Tablet 25 MG PO (17:47)
[2023-09-23] MEDS: tamsulosin 0.4 mg Capsule 0.400000000000000022 MG PO (17:48)
[2023-09-23] MEDS: atorvastatin 40 mg Tablet PO (17:48)
[2023-09-24] VITALS (107 sets, daily range): BP systolic 128–168; BP diastolic 59–83; PULSE 55–103; RESP 5–34; TEMP 36.9–37.2; O2SAT 75–98
[2023-09-24] MEDS: meropenem 1,000 MG in sodium chloride 0.9% (plus) 50 ML 100 MG IV ×3 (02:05→17:48)
[2023-09-24] MEDS: sodium chlor 0.9% + KCl 20 mEq 20 MEQ/1,000 ML BAG 50 MEQ IV ×2 (02:24→20:36)
[2023-09-24 05:22] LABS: Basophils % 0.2 %; Eosinophils # 0.2 10^3/uL (0.0-0.8); Eosinophils % 2.6 %; Hematocrit 33.3 % (37-53); Lymphocytes # 0.6 10^3/uL (0.8-4.8); Mean Corpuscular HGB Conc 32.4 g/dL (30-55); Mean Corpuscular Hemoglobin 30.8 pg (27-33); Mean Corpuscular Volume 94.9 fl (82-101); Monocytes # 0.8 10^3/uL (0.2-0.9); Neutrophils # 6.68 10^3/uL (1.8-7.7); Neutrophils % 79.5 %; Nucleated Red Blood Cells % 0 %; Platelet Count 281 10^3/cmm (157-399); Red Blood Count 3.51 10^6/uL (3.85-5.65); Red Cell Distribution Width 14.2 % (12.1-15.1); White Blood Count 8.41 10^3/uL (3.29-11.43)
[2023-09-24] MEDS: levothyroxine 175 mcg Tablet PO (05:46)
[2023-09-24 05:51] LABS: Alanine Aminotransferase 28 U/L (0-41); Albumin Level 2.5 g/dL (3.5-5.2); Alkaline Phosphatase 177 U/L (40-130); Anion Gap 15.8 (5-19); Aspartate Amino Transferase 38 U/L (0-40); Blood Urea Nitrogen 19 mg/dL (8-23); Calcium 7.6 mg/dL (8.5-10.5); Carbon Dioxide 21 mmol/L (22-29); Chloride 101 mmol/L (98-107); Creatinine Clr Calc Pharmacy 88.1892; Globulin 3.3 g/dL (1.3-4.6); Glucose 83 mg/dL (65-115); Osmolality Calculated 277 mOsm/kg (285-295); Potassium 4.8 mmol/L (3.5-5.1); Sodium 133 mmol/L (136-145); Total Bilirubin 0.8 mg/dL (0.15-1.2); Total Protein 5.8 g/dL (6.6-8.7)
[2023-09-24] MEDS: nicotine 21 mg Patch 1 PATCH TRANSDERMA (08:39)
[2023-09-24] MEDS: losartan 50 mg Tablet 25 MG PO ×2 (08:39→11:49)
[2023-09-24] MEDS: metoprolol tartrate 25 mg Tablet PO ×2 (08:40→17:47)
[2023-09-24 13:21] LABS: SARS Covid-2 Antigen negative (Negative)
[2023-09-24] MEDS: pantoprazole 40 mg SDV IVP (13:53)
--- NOTE | 2023-09-24 15:23 | P.PN_ITS ---
Subjective 2 Subjective: No events overnight. Today morning seen with daughter at bedside. Patient wakes up to verbal stimulus. On waking up able to make slight conversation. Remains oriented and alert to self, being in the hospital. States he is hungry. Did have 1 episode of choking today while eating Vitals/I&O/Wt Last Vital Signs Temp 98.5 F 09/24/23 11:28 Pulse 78 09/24/23 13:40 Resp 20 H 09/24/23 13:40 BP 132/66 09/24/23 13:40 Pulse Ox 97 09/24/23 13:40 O2 Del Method Room Air 09/24/23 11:28 O2 Flow Rate 98 09/24/23 11:28 09/24/23 09/24/23 09/24/23 06:59 14:59 22:59 Intake Total 1045.833 / 1145.833 50 / 50 Output Total 1600 / 1600 Balance 1045.833 / 295.833 -1550 / -1550 Physical Exam 2 Narrative: General: No acute distress, alert and oriented to self, being in the hospital, following some directions, responds to verbal stimulus, hard of hearing HEENT: PERRLA, pupils bilaterally equal and reactive Chest: Normal vesicular breath sounds, no added sounds, equal good air entry bilaterally CVS: S1-S2 regular, no murmurs, no tachycardia, no gallops, no rubs Abdomen: Soft, nontender, no organomegaly, bowel sounds present Neuro: Mild facial droop on the right slurred speech, occasional clonus of the right foot, plantars bilaterally downgoing, Power: 5/5 in left upper and lower extremity, 0/5 on the right side Data 09/24/23 04:59 09/24/23 04:59 A&P Assessment and plan (1) Left acute arterial ischemic stroke, MCA (middle cerebral artery): Seen on CT head and CTA head and neck done today. Recent CTA showed new severe left ICA stenosis. Patient was to follow-up as an outpatient for possible carotid endarterectomy. Not a candidate for thrombectomy as per neurology. Not a candidate for tenecteplase. Follow-up with PT/OT. Goal blood pressures less than 140/90 mmHg now. Will restart antihypertensives accordingly. Heart rate better controlled. Appreciate recent echocardiogram within the last 1 month. Speech therapy. Advance diet accordingly. Patient able to take oral diet now. Switch to oral aspirin. Continue statin. Plan for MRI brain as per neurology recommendations today. (2) Carotid stenosis, left: (3) Urinary tract infection: Complicated. Chronic Flores. Replaced in the ER. Follow-up urine culture, blood culture. Continue with IV ceftriaxone 1 g daily for now. Will de-escalate or change antibiotics as per culture results. Cannot rule out mild worsening of encephalopathy in setting of UTI along with stroke. Patient does have mild transaminitis. Cannot rule out gallbladder pathology versus cholecystitis versus acalculous cholecystitis for the reason of fever along with possible of aspiration pneumonia though that is unlikely as patient remains saturating well on room air versus central fevers given the new stroke. Plan for gallbladder ultrasound. Getting MRI head as above. (4) Hyponatremia: Resolving. Up to 134 today. (5) Encephalopathy: Combination of acute stroke, encephalopathy from UTI along with hyponatremia. Aspiration precaution. Speech therapy. Currently NPO. Seizure precaution. Monitor daily. Surgery as needed. (6) Severe hypothyroidism: Continue home dose of levothyroxine for now. If unable to take orally will start on IV. Recent discharge with severe hypothyroidism with TSH of 47. Repeat thyroid panel shows improvement in TSH. (7) Ischemic cardiomyopathy: (8) Acute congestive heart failure with left ventricular diastolic dysfunction: He is well compensated. Last known EF 40 to 45% with dilated LA, mild MR, mild to moderate AI (9) S/P PTCA (percutaneous transluminal coronary angioplasty): (10) History of CVA (cerebrovascular accident): (11) Carotid stenosis, bilateral: (12) S/P carotid endarterectomy: (13) Goals of care, counseling/discussion: (14) Intracranial hemorrhage: (15) Subarachnoid hemorrhage: Plan CODE STATUS: Discussed CODE STATUS again in detail with patient's daughter/DPOA at bedside. We discussed about quality of life versus quantity of life. Daughter states her father would have never wanted to live like a vegetable and unfortunately with his baseline now if he is to have cardiac arrest she is concerned that he would not get back to his baseline health at current and she had discuss further with her brothers detail and they had agreed upon DNR/DNI though her agreeable for aggressive treatment right now. CODE STATUS changed. Plan for the day: Continue with current treatment. Hold off on aspirin and Plavix. Hold off on heparin. Clinically stable to improving. Repeat CT head in AM. Continue with IV meropenem for Pseudomonas UTI. Will transition to oral antibiotics on discharge. Goal blood pressure less than 140/90 mmHg. Increase losartan to 50 mg oral daily. Give extra dose of losartan for now. Advance diet as per speech evaluation. Continue with PT. Discharge plan: Plan discharge to SNF within next 24 hours patient remains hemodynamically stable and afebrile. DNR/DNI Advance as per speech therapy. Protonix for PUD prophylaxis SCDs for DVT prophylaxis. Attestations 2 Medical Necessity Statement*: Requested hospitalization for management of acute left MCA CVA with hemorrhagic conversion, Pseudomonas UTI leading to metabolic encephalopathy Diagnoses Left acute arterial ischemic stroke, MCA (middle cerebral artery) I63.512 Carotid stenosis, left I65.22 Urinary tract infection N39.0 Hyponatremia E87.1 Encephalopathy G93.40 Severe hypothyroidism E03.9 Ischemic cardiomyopathy I25.5 Acute congestive heart failure with left ventricular diastolic dysfunction I50.31 S/P PTCA (percutaneous transluminal coronary angioplasty) Z98.61 History of CVA (cerebrovascular accident) Z86.73 Carotid stenosis, bilateral I65.23 S/P carotid endarterectomy Z98.890 Goals of care, counseling/discussion Z71.89 Intracranial hemorrhage I62.9 Subarachnoid hemorrhage I60.9
[2023-09-24] MEDS: tamsulosin 0.4 mg Capsule 0.400000000000000022 MG PO (17:47)
[2023-09-24] MEDS: atorvastatin 40 mg Tablet PO (17:47)
[2023-09-24] MEDS: ALPRAZolam 0.5 mg Tablet 0.25 MG PO (20:22)
[2023-09-25] VITALS (8 sets, daily range): BP systolic 136–167; BP diastolic 68–75; PULSE 64–83; RESP 17–24; TEMP 36.8–37.3; O2SAT 96–97
[2023-09-25] MEDS: meropenem 1,000 MG in sodium chloride 0.9% (plus) 50 ML 100 MG IV ×2 (01:25→08:30)
[2023-09-25] MEDS: levothyroxine 175 mcg Tablet PO (04:55)
--- NOTE | 2023-09-25 08:16 | CTR_ITS ---
PROCEDURE INFORMATION: Exam: CT Head Without Contrast Exam date and time: 09/25/2023 9:38 AM Age: 78 years old Clinical indication: Weakness, extremity; Right; hemorrhagic transformation of left MCA infarction. TECHNIQUE: Imaging protocol: Computed tomography of the head without contrast. Radiation optimization: All CT scans at this facility use at least one of these dose optimization techniques: automated exposure control; mA and/or kV adjustment per patient size (includes targeted exams where dose is matched to clinical indication); or iterative reconstruction. COMPARISON: CT head wo con* [id number] 09/23/2023 and 09/21/2023, MRI brain 09/22/2023 RADIATION DOSE METRICS: Total DLP (mGy-cm): 1327.86 FINDINGS: Brain: Large acute infarction in the left MCA territory noted again as hypodensity within the left temporal and parietal lobes extending into the left occipital lobe. Stable preserved normal density within the infarcted territory in the parietal lobe representing cortical hemorrhagic conversion documented on prior MRI. There is stable minimal peripheral linear hyperdensity in the left parietal lobe possibly representing an trace amount of acute subarachnoid hemorrhage. There is persistent mass effect with effacement of the sulci in the infarcted territory. Midline shift to the right increased from 2 mm to 4 mm. There are stable diffuse hypodense areas in the bilateral periventricular white matter suggestive of chronic small vessel ischemic changes. There is stable small chronic infarction in the right cerebellum. Cerebral ventricles: No obstructive hydrocephalus. Stable dilatation of the right lateral ventricle due to atrophy. Persistent compression of the left lateral ventricle due to mass effect from the infarction with complete obliteration of the atrium and the occipital horn. Paranasal sinuses: Stable mucosal thickening in bilateral paranasal sinuses with significant partial opacification of the right maxillary sinus and the left sphenoid sinus with no air-fluid levels suggestive of chronic sinusitis. Mastoid air cells: No mastoid effusion. Bones/joints: No acute fracture. No suspicious lytic or sclerotic bone lesions. Soft tissues: Unremarkable. CT/CT head wo con* [id number] IMPRESSION: No new or progressive intracranial hemorrhage since 09/23/2023. Slightly increased edema within the large left infarction with increase in midline shift from 2 mm to 4 mm.
[2023-09-25] MEDS: nicotine 21 mg Patch 1 PATCH TRANSDERMA (08:30)
[2023-09-25] MEDS: metoprolol tartrate 25 mg Tablet PO (08:31)
[2023-09-25] MEDS: losartan 50 mg Tablet PO (08:31)
--- NOTE | 2023-09-25 10:12 | PC.SLP ---
Speech therapist attempted speech therapy. Patient shook head for a few yes/no questions including orientation, how he was feeling, and swallowing difficulties. Patient shook head ?no? when asked if he wanted to participate in speech therapy today. Family member present and honored his decision. Family member stated that [place] [facility] [place] stated that he appears to be doing well with level 4 diet with thin liquids. Fany Harris M.S. [employer]
--- NOTE | 2023-09-25 12:05 | PM.DCS ---
Discharge Providers Date of Admission: 09/21/23 12:51 Date of Discharge: September 25, 2023 Attending Provider at Admission: Dariusz Velásquez MD Attending Provider at Discharge: Dariusz Velásquez MD Consults: Neurology: Dr. Lopes Primary Care Provider: Manny Yang MD Diagnoses at Discharge Discharge Diagnosis (1) Left acute arterial ischemic stroke, MCA (middle cerebral artery): Status: Acute (2) Carotid stenosis, left: Status: Acute (3) Urinary tract infection: Status: Acute (4) Hyponatremia: Status: Acute (5) Encephalopathy: Status: Acute (6) Severe hypothyroidism: Status: Acute (7) Ischemic cardiomyopathy: Status: Acute (8) Acute congestive heart failure with left ventricular diastolic dysfunction: Status: Acute (9) S/P PTCA (percutaneous transluminal coronary angioplasty): Status: Acute (10) History of CVA (cerebrovascular accident): Status: Acute (11) Carotid stenosis, bilateral: Status: Acute (12) S/P carotid endarterectomy: Status: Acute (13) Goals of care, counseling/discussion: Status: Acute (14) Intracranial hemorrhage: Status: Acute (15) Subarachnoid hemorrhage: Status: Acute Reason for Visit Reason for Visit: stroke alert Hospital Course Hospital Course Davy Reed is a 78 year old male with past medical history of CAD post PCI, recent discharge to SNF from hospital when he was diagnosed severe hypothyroidism because of noncompliance to medication, remote history of left MCA stroke with residual right-sided paralysis and spasticity along with dysarthria and right lower facial weakness, new lesions recent left high-grade stenosis ICA presented to the ER from SNF today with increased weakness of right side of the face along with dysarthria and more slurred speech and increased confusion since last night. Last known well was on 09/19 night. In the ER patient had CT head along with CTA head and neck. CT head showed new subacute left MCA territory infarct with diffuse edema involving the left posterior frontal and parietal lobe extending into the left. He was not deemed candidate for tenecteplase or thrombectomy. Patient was admitted to the hospital further evaluation and management of encephalopathy in setting of new stroke along with UTI. Flores catheter was replaced in the ER. He was started on the treatment for CVA. MRI showed hemorrhagic conversion of large left MCA stroke. Patient underwent further monitoring of the hemorrhagic conversion and small subarachnoid hemorrhage with subsequent CT heads in which bleeding has remained stable. Patient mentation improved and he worked with physical therapy and diet orders Kelley as per speech therapy. Urine cultures were positive for Pseudomonas. Antibiotics were tailored as per culture sensitivities. Voiding trial has been tried during hospitalization. He has been discharged back to SNF for further rehabilitation in hemodynamically stable condition on oral Levaquin for 7 more days. He is to continue his physical therapy and speech therapy at SNF and diet will be advanced over there as appropriate. He has been discharged off aspirin. He should be reassessed by neurology within next 2 weeks before reinitiation of antiplatelet therapy. Patient will need antiplatelet therapy going forward given his significant left ICA stenosis Physical Exam Narrative: General: No acute distress, alert and oriented to self, being in the hospital, following some directions, responds to verbal stimulus, hard of hearing HEENT: PERRLA, pupils bilaterally equal and reactive Chest: Normal vesicular breath sounds, no added sounds, equal good air entry bilaterally CVS: S1-S2 regular, no murmurs, no tachycardia, no gallops, no rubs Abdomen: Soft, nontender, no organomegaly, bowel sounds present Neuro: Mild facial droop on the right slurred speech, occasional clonus of the right foot, plantars bilaterally downgoing, Power: 5/5 in left upper and lower extremity, 0/5 on the right side Discharge Data Studies Completed and Pending Completed Studies During Hospitalization Category Date Time Status CT angio headneck* [id number] Stat Cat Scan 09/21/23 09:[address] head thrombolytic 18131 Stat Cat Scan 09/21/23 08:[address] head wo con* [id number] Routine Cat Scan 09/25/23 08:[address] head wo con* [id number] Stat Cat Scan 09/23/23 09:44 Completed XR chest 1V portable [id number] Stat Exams 09/21/23 08:38 Completed MR head wo con* [id number] Routine MRI 09/22/23 09:15 Completed US liver [id number] Routine Ultrasound 09/22/23 09:16 Completed Pending at discharge Category Date Time Status Blood Culture Stat Lab 09/21/23 13:52 Results Radiology Impressions Head MRI 09/22/23 09:15 IMPRESSION: 1. Large acute left MCA territory infarct with hemorrhagic transformation and trace subarachnoid hemorrhage. There is mild-moderate mass effect with partial effacement of the left atrium/trigone. Minimal 1-2 mm rightward midline shift. 2. Multiple subcentimeter acute infarcts in the left cerebral hemisphere as well as a single subcentimeter infarct in the left cerebellar hemisphere. 3. Paranasal sinus disease. The findings were verbally communicated by telephone with Dr. VELÁSQUEZ at 7:01 PM CDT on 09/22/2023. ADDENDUM: 09/22/23 162 Correction: Cerebral ventricles: Ex vacuo dilatation of the lateral ventricles. Partial effacement of the left lateral ventricle/atrium secondary to mass effect. Head CT 09/25/23 08:16 IMPRESSION: No new or progressive intracranial hemorrhage since 09/23/2023. Slightly increased edema within the large left infarction with increase in midline shift from 2 mm to 4 mm. Laboratory Results WBC 8.41 10^3/uL (3.29-11.43) 09/24/23 04:59 RBC 3.51 10^6/uL (3.85-5.65) L 09/24/23 04:59 Hgb 10.80 g/dL (11.27-16.99) L 09/24/23 04:59 Hct 33.3 % (37-53) L 09/24/23 04:59 MCV 94.9 fl (82-101) 09/24/23 04:59 MCH 30.8 pg (27-33) 09/24/23 04:59 MCHC 32.4 g/dL (30-55) 09/24/23 04:59 RDW 14.2 % (12.1-15.1) 09/24/23 04:59 Plt Count 281 10^3/cmm (157-399) 09/24/23 04:59 MPV 10.0 fL (7.4-10.4) 09/24/23 04:59 Neut % (Auto) 79.5 % 09/24/23 04:59 Lymph % (Auto) 7.0 % 09/24/23 04:59 [place] % (Auto) 10.0 % 09/24/23 04:59 Eos % (Auto) 2.6 % 09/24/23 04:59 Baso % (Auto) 0.2 % 09/24/23 04:59 Neut # (Auto) 6.68 10^3/uL (1.8-7.7) 09/24/23 04:59 Lymph # (Auto) 0.6 10^3/uL (0.8-4.8) L 09/24/23 04:59 [place] # (Auto) 0.8 10^3/uL (0.2-0.9) 09/24/23 04:59 Eos # (Auto) 0.2 10^3/uL (0.0-0.8) 09/24/23 04:59 Baso # (Auto) 0.0 10^3/uL (0.0-0.1) 09/24/23 04:59 Nucleated RBC % (auto) 0 % 09/24/23 04:59 Nucleated RBCs # 0.0 /100WBC 09/24/23 04:59 PT 14.60 SECONDS (12.1-14.9) 09/21/23 09:43 INR 1.10 (0.8-1.2) 09/21/23 09:43 APTT 30.0 SECONDS (23.9-36.7) 09/21/23 09:43 Sodium 133 mmol/L (136-145) L 09/24/23 04:59 Potassium 4.8 mmol/L (3.5-5.1) 09/24/23 04:59 Chloride 101 mmol/L (98-107) 09/24/23 04:59 Carbon Dioxide 21 mmol/L (22-29) L 09/24/23 04:59 Anion Gap 15.8 (5-19) 09/24/23 04:59 BUN 19 mg/dL (8-23) 09/24/23 04:59 Creatinine 0.8 mg/dL (0.7-1.2) 09/24/23 04:59 GFR Calculation Not Reportable 09/24/23 04:59 Glucose 83 mg/dL (65-115) 09/24/23 04:59 POC Glucose 110 mg/dL (70-110) 09/21/23 08:29 Calculated Osmolality 277 mOsm/kg (285-295) L 09/24/23 04:59 Lactic Acid 1.0 mmol/L (0.5-2.2) 09/21/23 08:23 Calcium 7.6 mg/dL (8.5-10.5) L 09/24/23 04:59 Phosphorus 2.9 mg/dL (2.5-4.5) 09/22/23 03:07 Magnesium 2.0 mg/dL (1.7-2.3) 09/22/23 03:07 Total Bilirubin 0.8 mg/dL (0.15-1.2) 09/24/23 04:59 AST 38 U/L (0-40) 09/24/23 04:59 ALT 28 U/L (0-41) 09/24/23 04:59 Alkaline Phosphatase 177 U/L (40-130) H 09/24/23 04:59 Total Protein 5.8 g/dL (6.6-8.7) L 09/24/23 04:59 Albumin 2.5 g/dL (3.5-5.2) L 09/24/23 04:59 Globulin 3.3 g/dL (1.3-4.6) 09/24/23 04:59 Vitamin B12 992 pg/mL (232-1245) 09/21/23 11:41 Procalcitonin 0.09 ng/mL (0-0.5) 09/21/23 11:41 TSH 12.30 uIU/mL (0.27-4.20) H 09/21/23 11:41 Urine Color Dark yellow (Yellow) 09/21/23 08:32 Urine Appearance Sl hazy (CLEAR) A 09/21/23 08:32 Urine pH 6 (5-7) 09/21/23 08:32 Ur Specific [place] 1.010 (1.005-1.030) 09/21/23 08:32 Urine Protein 1+ (Negative) H 09/21/23 08:32 Urine Glucose (UA) Norm (Normal) 09/21/23 08:32 Urine Ketones 1+ (Negative) H 09/21/23 08:32 Urine Blood 2+ (Negative) H 09/21/23 08:32 Urine Nitrate Negative (Negative) 09/21/23 08:32 Urine Bilirubin Neg (Negative) 09/21/23 08:32 Urine Urobilinogen 1 mg/dL (Negative) H 09/21/23 08:32 Ur Leukocyte Esterase 2+ (Negative) H 09/21/23 08:32 Urine RBC 5-10 /hpf (0-2) H 09/21/23 08:32 Urine WBC >100 /hpf (0-5) H 09/21/23 08:32 Ur Squamous Epith Cells None /hpf (0-5) 09/21/23 08:32 Amorphous Sediment Not Reportable 09/21/23 08:32 Urine Bacteria 2+ /hpf (NONE) H 09/21/23 08:32 Influenza Type A Ag negative (Negative) 09/21/23 08:58 Influenza Type B Ag negative (Negative) 09/21/23 08:58 SARS-CoV-2 Ag (Rapid) negative (Negative) 09/24/23 12:45 Vitals Last Vital Signs Temp 98.3 F 09/25/23 12:00 Pulse 64 09/25/23 12:00 Resp 21 H 09/25/23 12:00 BP 146/70 09/25/23 12:00 Pulse Ox 97 09/25/23 12:00 O2 Del Method Room Air 09/25/23 12:00 O2 Flow Rate 98 09/24/23 11:28 Discharge Plan Discharge Patient Disposition: Home Condition: Stable Prescriptions: New levofloxacin 500 mg tablet 500 mg PO Q24H 7 Days Qty: 7 0RF Continued levothyroxine 175 mcg Tablet 175 mcg PO DAILY@06 acetaminophen 325 mg Tablet 650 mg PO Q4H PRN (Reason: general discomfort) Milk of Magnesia 400 mg/5 mL Suspension 30 ml PO DAILY PRN (Reason: Constipation) Dulcolax (bisacodyl) 10 mg Suppository 10 mg AK DAILY PRN (Reason: Constipation) Fleet Enema 19-7 gram/118 mL Enema 118 ml AK DAILY PRN (Reason: Constipation) atorvastatin 20 mg tablet 20 mg PO DAILY@18 alprazolam 0.25 mg tablet 0.25 mg PO BID PRN (Reason: Anxiety) tamsulosin 0.4 mg capsule 0.4 mg PO DAILY@17 metoprolol tartrate 25 mg tablet 25 mg PO BID@08,18 cyanocobalamin (vitamin B-12) 1,000 mcg capsule 1,000 mcg PO DAILY@07 Changed losartan 25 mg Tablet 50 mg PO DAILY@07 Qty: 30 0RF Discontinued Aspir-81 81 mg Tablet,Delayed Release (Dr/Ec) 81 mg PO DAILY@07 furosemide 40 mg tablet 40 mg PO DAILY@07 potassium chloride 20 mEq tablet extended release 20 meq PO DAILY@07 Rx Instructions: take Potassium each time you take furosemide tablet. Discharge Orders: Discharge Order (Routine); Ordered 09/25/23 Ordered By: Dariusz Velásquez Referrals: Amos Lopes MD [Physician] - 2 weeks Manny Yang MD [Primary Care Provider] - 4-7 days Discharge Diet: As Directed Discharge Activity: Resume usual activity and Increase activity as tolerated Patient Instructions: Heart Failure (DC), CHF Stoplight, Opioid Safety Activity Restrictions/Additional Instructions: Dysphagia level 4 diet. Please follow-up with neurology in 2 weeks. Discharge Attestations Time Spent in Discharge Care*: greater than 30 min Specific Discharge Activities: educating and/or supporting family/caregiver, discussing with pcp/other providers, discussing with case packer and sealer/social workers/dc planners, documenting/other paperwork and evaluating patient/reviewing data Status at Discharge: Cognitive status at discharge: mildly impaired cognition, Behavioral status at discharge: cooperative, Functional status at discharge: other assisted ambulation, Overall status at discharge: patient has a new baseline Quality Metrics Clinical Quality Measures [ Cerebrovascular Accident { Contraindication to Antithrombotic: Medical contraindication; Contraindication to Anticoagulation: Overlap treatment not indicated; Contraindication to Statin: None; Statin prescribed; Contraindication to tPA: Treatment not indicated; Rehab services assessed: Activities of daily living assessment, Rehabilitation assessment, Physical therapy, Occupational therapy, Speech therapy, Stroke rehabilitation, Other;}] Coding Level of Care Code Acute Code for Chg Fwd Diagnoses Left acute arterial ischemic stroke, MCA (middle cerebral artery) I63.512 Carotid stenosis, left I65.22 Urinary tract infection N39.0 Hyponatremia E87.1 Encephalopathy G93.40 Severe hypothyroidism E03.9 Ischemic cardiomyopathy I25.5 Acute congestive heart failure with left ventricular diastolic dysfunction I50.31 S/P PTCA (percutaneous transluminal coronary angioplasty) Z98.61 History of CVA (cerebrovascular accident) Z86.73 Carotid stenosis, bilateral I65.23 S/P carotid endarterectomy Z98.890 Goals of care, counseling/discussion Z71.89 Intracranial hemorrhage I62.9 Subarachnoid hemorrhage I60.9
--- NOTE | 2023-09-25 13:15 | PC.SOCIAL ---
IMM Update pg 2 of IMM updated and reviewed w/ patient and his daughter. Copy provided and copy dated, initialed and placed in chart.
--- NOTE | 2023-09-25 16:36 | PC.NURSE ---
ayers reinserted due to acute urinary retention.report phoned to rica at [facility].discharged at this time.tiffany lawrence here to transport via stretcher
== END 2023-09-25 16:37 | disposition skilled nursing facility (03) | DRG 64 ==
LOC: ER 12:19 → ER IP 13:32 → CSU 16:05
PROVIDERS: Admitting Provider Student in an Organized Health Care Education/Training Program; Emergency Provider Emergency Medicine; PCP Family Medicine; Visit Provider Student in an Organized Health Care Education/Training Program
DX: I60.12 Nontraumatic subarachnoid hemorrhage from left middle cerebral artery (principal); G93.41 Metabolic encephalopathy; I50.31 Acute diastolic (congestive) heart failure; N39.0 Urinary tract infection, site not specified; E87.1 Hypo-osmolality and hyponatremia; I69.954 Hemiplegia and hemiparesis following unspecified cerebrovascular disease affecting left non-dominant side; R47.81 Slurred speech; B96.5 Pseudomonas (aeruginosa) (mallei) (pseudomallei) as the cause of diseases classified elsewhere; I65.01 Occlusion and stenosis of right vertebral artery; I65.22 Occlusion and stenosis of left carotid artery; T38.1X6A Underdosing of thyroid hormones and substitutes, initial encounter; I25.10 Atherosclerotic heart disease of native coronary artery without angina pectoris; L82.1 Other seborrheic keratosis; E78.5 Hyperlipidemia, unspecified; I25.5 Ischemic cardiomyopathy; K21.9 Gastro-esophageal reflux disease without esophagitis; R74.01 Elevation of levels of liver transaminase levels; E86.0 Dehydration; I69.922 Dysarthria following unspecified cerebrovascular disease; I25.2 Old myocardial infarction; I69.992 Facial weakness following unspecified cerebrovascular disease; Z11.52 Encounter for screening for COVID-19; Z79.82 Long term (current) use of aspirin; Z98.61 Coronary angioplasty status; Z91.128 Patient's intentional underdosing of medication regimen for other reason; Z85.828 Personal history of other malignant neoplasm of skin; Z86.711 Personal history of pulmonary embolism
CPT/HCPCS: 36415; 36416; 51702; 51798; 70450; 70496; 70498; 70551; 71045; 76705; 80053; 81001; 82607; 82962; 83605; 83735; 84100; 84145; 84443; 85025; 85610; 85730; 87040; 87077; 87086; 87186; 87426; 87804; 92507; 92523; 92526; 92610; 93005; 94664; 96372; 96374; 96376; 97110; 97162; 97167; 97530; 99285; A9270; C9113; J0692; J0696; J1644; J2185; J3480; J3490; Q9967